=== PATIENT | female | born 1985 | race Two or more races ===

== ENCOUNTER 2022-10-22 09:50 | Outpatient (OUT) | payer BC, SELFPAY ==
[2022-10-22 10:36] LABS: Basophils Percent Auto 0.4 % (0.2-2.0); Eosinophils Absolute Auto 0.1 10^3/uL (0.0-0.7); Eosinophils Percent Auto 1.3 % (0.9-7.0); Hematocrit 42.9 % (36.0-48.0); Hemoglobin 14.5 g/dL (12.0-16.0); Lymphocytes Absolute Auto 2.1 10^3/uL (1.2-3.8); Lymphocytes Percent Auto 39.3 % (20.5-60.0); Mean Corpuscular HGB Conc 33.8 g/dL (29.9-35.2); Mean Corpuscular Hemoglobin 29.4 pg (26.7-34.0); Mean Corpuscular Volume 86.8 fL (81.0-99.0); Mean Platelet Volume 8.8 fL (9.5-13.5); Monocytes Absolute Auto 0.4 10^3/uL (0.3-0.8); Monocytes Percent Auto 7.1 % (1.7-12.0); Neutrophils Absolute Auto 2.7 10^3/uL (1.4-6.5); Neutrophils Percent Auto 51.9 % (43.0-75.0); Platelet Count 321 10^3/uL (150-450); Red Blood Count 4.94 10^6/uL (4.20-5.40); Red Cell Distribution Width 13.2 % (11.0-15.0); White Blood Count 5.2 10^3/uL (4.0-11.0)
[2022-10-22 12:14] LABS: Alanine Aminotransferase 22 U/L (14-59); Albumin Globulin Ratio 0.9; Albumin Level 3.8 g/dL (3.4-5.0); Alkaline Phosphatase 54 U/L (46-116); Anion Gap 11.2; Aspartate Amino Transferase 12 U/L (15-37); Bilirubin Total 0.3 mg/dL (0.2-1.0); Calcium 8.8 mg/dL (8.5-10.1); Chloride 106 mmol/L (98-107); Chol HDL Ratio 2.8; Cholesterol 161 mg/dL (<=200); Estimated GFR (African America >60 (>=60); Estimated GFR (Non-African Ame >60 (>=60); Globulin 4.2 g/dL; Glucose 83 mg/dL (74-106); HDL Cholesterol 58 mg/dL (40-60); Potassium 4.2 mmol/L (3.5-5.1); Sodium 141 mmol/L (136-145); Thyroid Stimulating Hormone 0.813 uIU/mL (0.358-3.740); Triglycerides 80 mg/dL (<=150)
[2022-10-22 12:53] LABS: Estimated Average Glucose 100 mg/dL; Glycohemoglobin A1C 5.1 % (4.5-6.2)
[2022-10-23 06:09] LABS: HCV Ab Non Reactive (Non Reactive)
[2022-10-23 08:11] LABS: HIV Ab/p24 Ag Screen Non Reactive (Non Reactive)
== END 2022-10-22 09:51 | disposition home or self-care (01) ==
LOC: LAB 09:54
PROVIDERS: PCP Nurse Practitioner Primary Care; Visit Provider Nurse Practitioner Primary Care
DX: Z00.00 Encounter for general adult medical examination without abnormal findings (principal); Z11.59 Encounter for screening for other viral diseases; Z13.6 Encounter for screening for cardiovascular disorders; Z11.4 Encounter for screening for human immunodeficiency virus [HIV]
CPT/HCPCS: 36415; 80053; 80061; 83036; 84443; 85025; 86803; 87389

== ENCOUNTER 2023-06-30 07:42 | Outpatient (OUT) | payer BC, OTHER, SELFPAY ==
--- NOTE | 2023-06-30 08:01 | P.CN_ITS ---
Consult Note: HPI Data of Consult Patient: known to practice within the last 3 years Requesting Physician: Jodie Krause NP Primary Care Provider: Dakotah Mehta NP Consult Narrative Reason for consult: f/u chronic low back pain Narrative: Gris Khalil a pleasant 38 year old female presents for evaluation and management of chronic low back pain. reports chronic low back pain since 2021, pain today 4/10 increasing to 8/10 with pushing pulling twisting heavy lifting and repetitive motions. Pain improved with lying and heat, previously found moderate to significant benefit to baclofen. Mild benefit from NSAIDs and PRN. No recent medications or PT. Describes it as an irritated tight cramp with intermittent numbness tingling of left leg and foot. Following with neurology for headaches/migraines who completed emg for LLE extremity symptoms, EMG negative for radiculopathy or polyneuropathy. Prior lumbar MRI and xray unremarkable. denies loss of bowel bladder or falls. Noticing improvement in left leg pain with change in job. cc:: CC: Jodie Krause NP Review of Systems 2 ROS0 Status of ROS 10 or more systems reviewed and unremark able except as noted in history and below Musculoskeletal Reports: back pain Exam Constitutional Documenting provider has reviewed patient's vital signs: yes Common normals: no apparent distress, oriented x3, healthy appearing, alert and well nourished General appearance: cooperative HENMT Common normals: normocephalic, hearing grossly normal bilaterally and moist oral mucous membranes Head and scalp: normocephalic Eye Common normals: PERRL Pupil: PERRL Neck & C-Spine Common normals: full ROM General: normal visual inspection Chest Common normals: inspection of chest normal Respiratory Common normals: normal respiratory effort, no retractions and no use of accessory muscles Back & Pelvis Lumbar spine/lower back: ROM limited, pain with ROM, paraspinal muscle tenderness, paraspinal muscle spasm and straight leg raise negative bilaterally Sacroiliac joints: SI joints normal Back image (female): 2 1. left flank tenderness/ myofascial knot Extremity Common normals: normal to inspection and full ROM Neuro Common normals: oriented x3, CN's II-XII intact bilaterally, moves all extremities, no focal motor deficits, no sensory deficits noted, deep tendon reflexes 2+ bilaterally and gait normal Sensorium/orientation: alert Motor exam: strength 5/5 throughout and no movement abnormalities noted Psych Common normals: mental status grossly normal, thought process normal, cooperative, affect normal, speech normal and activity/motor behavior normal Speech: normal speech Thought process: normal thought process Results Additional Findings Additional findings: If on a controlled substance or opioids, I have checked an [place] report on this patient and there are no aberrancies noted in the prescribing history.??If on a controlled substance or opioid a drug screen was completed and reviewed within the last year, and if there has not been a drug screen completed we ordered one today to monitor higher risk, state monitored pain medication use. As part of providing excellent, safe, comprehensive care, the following was completed at our patient's visit: 1. A medication reconciliation and review to ensure accurate knowledge of current/active medications, including asking our patients to inform us about any [id number] medications or herbal remedies/nutritional supplements/alternative remedies. 2. A review to specifically ensure our patients have had annual screening for screening for depression, screening for tobacco use, and screening for unhealthy alcohol use. For concerning screenings had a discussion with the patient, provided patient education, and recommended follow-up with primary care provider when appropriate. If patient noted with a risk of falling, they received education on strength, gait, and balance training to prevent future risk of falling. Assessment and Plan Assessment and Plan (1) Chronic left-sided low back pain: (2) Myofascial pain: Plan PT for dry needling and stretching restart baclofen, 5-10mg TID PRN myofascial and low back pain continue NSAIDs/acetaminophen PRN pain start TENS unit [employer] reviewed and signed, defer UDS can call for trigger point injections if needed f/u 6-8 weeks, after completion of PT unless needed sooner
== END 2023-06-30 07:43 | disposition home or self-care (01) ==
LOC: PM 07:44
PROVIDERS: PCP Nurse Practitioner Primary Care; Visit Provider Nurse Practitioner
DX: M54.50 Low back pain, unspecified (principal); M79.18 Myalgia, other site
CPT/HCPCS: G0463

== ENCOUNTER 2023-08-25 08:10 | Outpatient (OUT) | payer BC, OTHER, SELFPAY ==
--- NOTE | 2023-08-25 08:20 | P.CN_ITS ---
Consult Note: HPI Data of Consult Patient: known to practice within the last 3 years Requesting Physician: Jodie Krause NP Primary Care Provider: Dakotah Mehta NP Consult Narrative Reason for consult: f/u chronic low back pain Narrative: Gris Khalil a pleasant 38 year old female presents for evaluation and management of chronic low back pain. reports chronic low back pain since 2021, pain today 1/10 increasing to 4/10 with pushing pulling twisting heavy lifting and repetitive motions. Pain improved with lying and heat, previously found moderate to significant benefit to baclofen. Mild benefit from NSAIDs and PRN. Previously described it as an irritated tight cramp with intermittent numbness tingling of left leg and foot, now reports dull ache to left low back increased with long period of sitting or standing. Following with neurology for headaches/migraines who completed emg for LLE extremity symptoms, EMG negative for radiculopathy or polyneuropathy. Prior lumbar MRI and xray unremarkable. denies loss of bowel bladder or falls. Reporting moderate benefit from TENS. cc:: CC: Jodie Krause NP Review of Systems ROS Status of ROS 10 or more systems reviewed and unremark able except as noted in history and below Musculoskeletal Reports: back pain PFSH PFSH Medical History Acid reflux ?K21.9 - Gastro-esophageal reflux disease without esophagitis (ICD-10) History of kidney stones ?Z87.442 - Personal history of urinary calculi (ICD-10) Surgical History H/O ureteroscopy ?Z98.890 - Other specified postprocedural states (ICD-10) History of appendectomy ?Z90.49 - Acquired absence of other specified parts of digestive tract (ICD- 10) H/O rhinoplasty ?Z98.890 - Other specified postprocedural states (ICD-10) History of tonsillectomy and adenoidectomy ?Z90.89 - Acquired absence of other organs (ICD-10) Hx of LASIK ?Z98.890 - Other specified postprocedural states (ICD-10) History of laparoscopic cholecystectomy ?Z90.49 - Acquired absence of other specified parts of digestive tract (ICD- 10) Meds Home Medications and Allergies Home Medications ?Medication ?Instructions ?Recorded ?Confirmed ?Type baclofen 10 mg tablet 10 mg PO TID 06/30/23 06/30/23 History Allergies Allergy/AdvReac Type Severity Reaction Status Date / Time lamotrigine [From Lamictal] Allergy Unknown Rash Verified 06/30/23 08:38 Exam Constitutional Documenting provider has reviewed patient's vital signs: yes Common normals: no apparent distress, oriented x3, healthy appearing, alert and well nourished General appearance: cooperative HENMT Common normals: normocephalic, hearing grossly normal bilaterally and moist oral mucous membranes Head and scalp: normocephalic Eye Common normals: PERRL Pupil: PERRL Neck & C-Spine Common normals: full ROM General: normal visual inspection Chest Common normals: inspection of chest normal Respiratory Common normals: normal respiratory effort, no retractions and no use of accessory muscles Back & Pelvis Lumbar spine/lower back: lumbar ROM normal, paraspinal muscle tenderness, paraspinal muscle spasm and straight leg raise negative bilaterally Sacroiliac joints: SI joints normal Extremity Common normals: normal to inspection and full ROM Neuro Common normals: oriented x3, CN's II-XII intact bilaterally, moves all extremities, no focal motor deficits, no sensory deficits noted and deep tendon reflexes 2+ bilaterally Sensorium/orientation: alert Motor exam: strength 5/5 throughout and no movement abnormalities noted Psych Common normals: mental status grossly normal, thought process normal, cooperative, affect normal, speech normal and activity/motor behavior normal Speech: normal speech Thought process: normal thought process Results Additional Findings Additional findings: If on a controlled substance or opioids, I have checked an [place] report on this patient and there are no aberrancies noted in the prescribing history.??If on a controlled substance or opioid a drug screen was completed and reviewed within the last year, and if there has not been a drug screen completed we ordered one today to monitor higher risk, state monitored pain medication use. As part of providing excellent, safe, comprehensive care, the following was completed at our patient's visit: 1. A medication reconciliation and review to ensure accurate knowledge of current/active medications, including asking our patients to inform us about any [id number] medications or herbal remedies/nutritional supplements/alternative remedies. 2. A review to specifically ensure our patients have had annual screening for sc reening for depression, screening for tobacco use, and screening for unhealthy alcohol use. For concerning screenings had a discussion with the patient, provided patient education, and recommended follow-up with primary care provider when appropriate. If patient noted with a risk of falling, they received education on strength, gait, and balance training to prevent future risk of falling. Assessment and Plan Assessment and Plan (1) Chronic left-sided low back pain: (2) Myofascial pain: Plan continue baclofen, 5-10mg BID PRN myofascial and low back pain continue NSAIDs/acetaminophen PRN pain continue TENS f/u 6 months, sooner if needed
== END 2023-08-25 08:11 | disposition home or self-care (01) ==
LOC: PM 08:10
PROVIDERS: PCP Nurse Practitioner Primary Care; Visit Provider Nurse Practitioner
DX: M54.50 Low back pain, unspecified (principal); G89.29 Other chronic pain; M79.18 Myalgia, other site
CPT/HCPCS: G0463

== ENCOUNTER 2023-11-19 20:39 | Emergency (ER) | payer BC, OTHER, SELFPAY ==
[2023-11-19 20:42] VITALS: BP 148/103; PULSE 89; TEMP 37.2; O2SAT 98; BMI 27.8
--- OUTSIDE RECORDS SUMMARY | 2023-11-19 20:46 | XMS_ITS | CCD ---
Author Organization [facility] CliniSymo Care Team Providers Care Orthotist Name Role Phone Alfredo Mckeon Unavailable [phone] HOUSE, DR PERES Admitting Unavailable HOUSE, DR PERES Attending Unavailable ESSEX, DR PERES Primary Care Unavailable [employer], DR VERITO Lim Consulting Unavailable ESSEX, DR PERES Consulting Unavailable LAKSHMIPATHY ., NARENDRANATH Admitting Yue vailable LAKSHMIPATHY ., NARENDRANATH Attending Yue vailable ESSEX, DR PERES Primary Care Unavailable PAYALHOLDEN, DR CARLI Funes Consulting Unavailable LAKSHMIPATHY ., DIMA Consulting Yue vailable HOUSE, DR PERES Admitting Unavailable HOUSE, DR PERES Attending Unavailable HOUSE, DR PERES Primary Care Unavailable HOUSE, DR PERES Consulting Unavailable HIGHLANDER, KELLY Yi Admitting Unavailable HIGHLANDER, KELLY Yi Attending Unavailable HOUSE, DR PERES Primary Care Unavailable [employer], DR VERITO Lim Consulting Unavailable HIGHLANDER, KELLY Yi Consulting Unavailable HIGHLANDER, KELLY Yi Admitting Unavailable HIGHLANDER, KELLY Yi Attending Unavailable HOUSE, DR PERES Primary Care Unavailable HIGHLANDER, KELLY Yi Consulting Unavailable READERTORITO Consulting Unavailable LAKSHMIPATHY ., NARENDRANATH Admitting Yue vailable LAKSHMIPATHY ., CAROLINAENDRANATH Attending Yue vailable ADALBERTO, KELLY Yi Referring Unavailable HOUSE, DR PERES Primary Care Unavailable LAKSHMIPATHY ., NARENDRANATH Consulting Yue vailable LAKSHMIPATHY ., NARENDRANATH Admitting Yue vailable LAKSHMIPATHY ., GUSTAVOATH Attending Yue vailable ROCCO, DR PERES Primary Care Unavailable LAKSHMIPATHY ., NARENDRANATH Consulting Yue vailable LAKSHMIPATHY ., NARENDRANATH Admitting Yue vailable LAKSHMIPATHY ., DIMA Attending Yue vailable ROCCO, DR PERES Primary Care Unavailable PAYALHOLDEN, DR CARLI Funes Consulting Unavailable LAKSHMIPATHY ., NARENDRANATH Consulting Yue vailable ROSELYN, CHRISTOPHER Attending Unavailable CASSIA DEMPSEY Attending Unavailable CASSIA DEMPSEY Attending Unavailable PAOLO PRINCE Attending Unavailable Allergies Allergy Classification Reported Allergen(s) Allergy Type Date of Onset Reaction(s) Facility (1 source) [facility] Allergy rash [facility] Other (1 source) [facility] Drug Allergy 07-12-2019 [facility] Medications Current Medications Medication Drug Class(es) Dates Sig (Normalized) Sig (Original) [id number] 200 actuat albuterol 0.09 mg/actuat metered dose inhaler (1 source) beta2-Adrenergic Agonist Start: 05-07-2020 take 2 puff(s) by inhalation every four hours as needed Albuterol Sulfate HFA 108 (90 Base) MCG/ACT 2 puffs as needed Inhalation every 4 hrs PRN Apr, Active colestipol hydrochloride 1000 mg oral tablet (1 source) Bile Acid Sequestrant Start: 12-10-2020 take 2 tablets by mouth every twenty-four hours Colestipol HCl 1 GM 2 tablets Orally Once a day for 30 day(s) Nov, Active lithium carbonate 300 mg extended release oral tablet (1 source) [place] Carbonate ER 300 MG Orally Twice a day Active Problems Active Problems Problem Classification Problem Date Documented Date Episodic/Chronic Abdominal pain (6 sources) Abdominal pain; Translations: [Unspecified abdominal pain] Onset: 12-10-2020 Resolved: 12-10-2020 Episodic Anxiety disorders (2 sources) Generalized anxiety disorder; Translations: [Generalized anxiety disorder] Onset: 03-10-2023 Chronic Asthma (1 source) Exacerbation of intermittent asthma; Translations: [Mild intermittent asthma with (acute) exacerbation] Chronic Esophageal disorders (1 source) Gastroesophageal reflux disease; Translations: [Gastro-esophageal reflux disease without esophagitis] Chronic Other connective tissue disease (4 sources) Plantar fascial fibromatosis; Translations: [PLANTAR FASCIAL FIBROMATOSIS] Onset: 03-09-2022 Episodic Other connective tissue disease (4 sources) Pain in right foot; Translations: [PAIN IN RIGHT FOOT] Onset: 03-04-2022 Episodic Other connective tissue disease (1 source) Pain in left foot; Translations: [PAIN IN LEFT FOOT] Onset: 03-09-2022 Episodic Spondylosis; intervertebral disc disorders; other back problems (1 source) Spondylosis without myelopathy or radiculopathy, lumbar region; Translations: [SPONDYLS W/O MYELO-/RADICULOP LUMB] Onset: 05-10-2022 Chronic Spondylosis; intervertebral disc disorders; other back problems (4 sources) Radiculopathy, lumbar region; Translations: [RADICULOPATHY LUMBAR REGION] Onset: 04-22-2022 Episodic Unclassified (4 sources) LOW BACK PAIN, UNSPECIFIED; Translations: [LOW BACK PAIN, UNSPECIFIED] Onset: 04-15-2022 Unclassified (2 sources) CONTACT W/AND (SUSP) EXPOS COVID-19; Translations: [CONTACT W/AND (SUSP) EXPOS COVID-19] Onset: 10-26-2021 Viral infection (1 source) COVID-19; Translations: [COVID-19] Onset: 10-26-2021 Past or Other Problems Problem Classification Problem Date Documented Da te Episodic/Chronic Abdominal hernia (2 sources) Hiatal hernia; Translations: [Diaphragmatic hernia without obstruction or gangrene] Onset: 12-10-2020 Resolved: 12-10-2020 Episodic Nausea and vomiting (2 sources) Nausea and vomiting; Translations: [Nausea with vomiting, unspecified] Onset: 12-10-2020 Resolved: 12-10-2020 Episodic Other gastrointestinal disorders (1 source) Diarrhea; Translations: [Diarrhea, unspecified] Episodic Other gastrointestinal disorders (1 source) Diarrhea, unspecified; Translations: [Diarrhea R19.7] Onset: 12-10-2020 Resolved: 12-10-2020 Episodic Unclassified (1 source) LOW BACK PAIN, UNSPECIFIED; Translations: [LOW BACK PAIN, UNSPECIFIED] Onset: 05-07-2022 Unclassified (1 source) CONTACT W/AND (SUSP) EXPOS COVID-19; Translations: [CONTACT W/AND (SUSP) EXPOS COVID-19] Onset: 10-24-2021 Results Test Name Value Interpretation Reference Range Facility MRI LSPINE WO CONon 04-23-19 MRI LSPINE WO CON EXAMINATION: MRI LSPINE WO CON HISTORY: Low back pain ; chronic lumbar pain radiating into right buttock and leg COMPARISON: No relevant comparison available. TECHNIQUE: A variety of imaging planes and parameters were utilized for visualization of suspected pathology. FINDINGS: For the purposes of numbering, sagittal T2 image # 10 extends from the T11 vertebral body superiorly to the S4 level inferiorly. PARASPINAL AREA: Normal with no visible mass. BONES: Partial lumbarization of S1; normal variant. CORD/CAUDA EQUINA: Normal caliber, contour, and signal intensity. DISC LEVELS: 12-L1: No significant disc/facet abnormality, spinal stenosis, or foraminal stenosis. L1-L2: No significant disc/facet abnormality, spinal stenosis, or foraminal stenosis. L2-L3: No significant disc/facet abnormality, spinal stenosis, or foraminal stenosis. L3-L4: No significant disc/facet abnormality, spinal stenosis, or foraminal stenosis. L4-L5: No significant disc/facet abnormality, spinal stenosis, or foraminal stenosis. L5-S1: No significant disc/facet abnormality, spinal stenosis, or foraminal stenosis. IMPRESSION: 1. No significant degenerative changes, acute findings, or suspicious abnormality to account for patient's symptoms. Electronically authenticated by: CARLI RODRIGUEZ Date: 2022-04-22 16:27 Normal [facility] CT ABD/PELVIS WO CONon 04-20 CT ABD/PELVIS WO CON EXAMINATION: CT ABD/PELVIS WO CON, 04/20/2022 8:38 AM EST HISTORY: Left flank pain COMPARISON: 07/12/2019 TECHNIQUE: CT scan of the abdomen and pelvis was performed without IV contrast. CT dose reduction technique was used, including Automated Exposure Control. FINDINGS: LUNG BASES: No visible pulmonary or pleural disease. LIVER: No enlargement, atrophy, abnormal density, or significant focal lesion. BILIARY: Surgical clips from cholecystectomy PANCREAS: No lesion, fluid collection, ductal dilatation, or atrophy. SPLEEN: No enlargement or focal lesion. ADRENALS: No mass or enlargement. KIDNEYS: No mass, obstruction, or calcification. BOWEL/MESENTERY: Mild colonic diverticulosis. Nonobstructive bowel gas pattern. Surgical clips likely from prior appendectomy AORTA/VASCULAR: No aneurysm or dissection. RETROPERITONEUM: No mass or adenopathy. LYMPH NODES: No adenopathy. URINARY BLADDER: No visible focal wall thickening, lesion, or calculus. PELVIC ORGANS: No visible mass. Pelvic organs appropriate for patient age. ABDOMINAL WALL: No mass or hernia. BONES: No bony lesion or fracture. OTHER: Negative. IMPRESSION: No obstructive uropathy Electronically authenticated by: VERITO ESPOSITO Date: 2022-04-20 09:15 Normal [facility] XR LSPINE MIN 4 VIEWSon 03-19 XR LSPINE MIN 4 VIEWS EXAMINATION: XR LSPINE MIN 4 VIEWS HISTORY: Neuritis AND/OR radiculitis due to displacement of lumbar intervertebral disc ; chronic lumbar and right foot pain COMPARISON: No relevant comparison available. FINDINGS: BONES: No significant spondylosis, scoliosis, fracture, or visible bony lesion. DISC SPACES: No significant disc height narrowing, subluxation, or endplate abnormality. PARASPINOUS: Negative. No paraspinous abnormality is seen. OTHER: Negative. IMPRESSION: 1. No acute bone abnormality or significant degenerative changes. 2. Skin surface marker is posterior to the L3 spinous process. Electronically authenticated by: CARLI RODRIGUEZ Date: 2022-04-09 18:35 Normal [facility] MRI ANKLE RT WO CONon 2022 MRI ANKLE RT WO CON HISTORY: Chronic right foot pain. Possible plantar fasciitis. MRI ANKLE RT WO CON: 03/09/2022, 6:44 AM EST COMPARISON: Radiographs of the right foot 03/04/2022. TECHNIQUE: Multiplanar, multisequence MRI images of the right midfoot/hindfoot were obtained without contrast. FINDINGS: LIGAMENTS: The anterior talofibular ligament appears within normal limits. The calcaneofibular ligament, posterior talofibular ligament, and distal tibiofibular ligaments appear within normal limits. The deltoid ligament complex appears within normal limits. The spring ligament and Lisfranc ligament complex appear grossly intact. TENDONS: No significant tendinopathy, tendon tear, or tenosynovitis is seen. SINUS TARSI AND TARSAL TUNNEL: No space-occupying mass is seen in the tarsal tunnel or the sinus tarsi. BONES AND JOINTS: The bone marrow signal intensity is age appropriate. No unstable osteochondral defect of the tibiotalar joint is identified. PLANTAR FASCIA: There is no abnormal thickening or abnormal signal intensity of the plantar fascia and there is no surrounding soft tissue edema to suggest plantar fasciitis. SOFT TISSUES: No significant soft tissue swelling is seen. IMPRESSION: Normal MRI appearance of the right midfoot/hindfoot without MRI evidence of plantar fasciitis. Electronically authenticated by: TORITO JOSHI Date: 2022-03-09 17:09 Normal [facility] XR FOOT ROXANA MIN 3 VIEWSon XR FOOT ROXANA MIN 3 VIEWS EXAMINATION: XR FOOT ROXANA MIN 3 VIEWS HISTORY: Pain in both feet COMPARISON: No relevant comparison available. FINDINGS: RIGHT FINDINGS: BONES: Normal. No significant arthropathy or acute abnormality. SOFT TISSUES: Negative. No visible soft tissue swelling. OTHER: Negative. LEFT FINDINGS: BONES: Normal. No significant arthropathy or acute abnormality. SOFT TISSUES: Negative. No visible soft tissue swelling. OTHER: Negative. IMPRESSION: RIGHT CONCLUSION: Normal LEFT CONCLUSION: Normal Electronically authenticated by: VERITO ESPOSITO Date: 2022-03-04 16:29 Normal [facility] Covid-19 PCR (CVDTB)on SARS-CoV-2 (COVID-19) RNA CHICO+probe Ql (Unsp spec) Detected Critically abnormal NOT DETECTED [facility] Comment on above: Result Comment: This test is not yet julian roved or cleared by the [place] FDA. When there are no FDA-approved or cleared tests available, and other criteria are met, FDA can make tests available under an emergency access mechanism called an Emergency Use Authorization (EUA). The EUA for this test is supported by the Motorboat Operator of Health and Human Service's (HHS's) declaration that circumstances exist to justify the emergency use of in vitro diagnostics for the detection and/or diagnosis of the virus that causes COVID-19. This EUA will remain in effect (meaning this test can be used) for the duration of the COVID-19 declaration justifying emergency of IVDs, unless it is terminated or revoked by FDA (after which the test may no longer be used). Performed By: #### C VDTBH #### [facility] [address] [address] [address] Rozina De La Cruz HCG,Urineon 10-29-2020 Beta HCG ( test) Ql (U) Negative Normal [facility] Comment on above: Result Comment: PERFORMED BY: [address] [address] PATHOLOGIST CASTING CHIPPER GEMMA AVALOS M.D. Performed By: #### U HCG #### [address] [place] [address] [facility] 10-29-2020 L - -------- Specimen: [id number] Received: 10/29/20 Status: DIEGO Garsia Num: [id number] Spec Type: Surgical Subm Dr: Alfredo Mckeon MD Tissues: A Duodenum - Biopsy (DUODENAL BX) B Colon Biopsy (SURVEILLANCE BX) Procedures: HE Stain/4, Gross/Micro L4/2 -------- Patient Age/Sex Location Account Attending Physician -------- Chance Khalil 35/F [id number] Alfredo Mckeon MD -------- SPEC NUM: [id number] RECD: 10/29/20 STATUS: DIEGO GALDAMEZ NUM: [id number] LUCIO: 10/29/20 DR: Alfredo Mckeon MD ENTERED: 10/29/[address] [facility] [address]: SPEC TYPE: Surgical DEPT: S ORDERED: HE Stain/4, Gross/Micro L4/2 ORDERED: HE Stain/4, Gross/Micro L4/2 Pathological Diagnosis A. Small bowel, duodenum, biopsy: Small bowel mucosa with no significant histopathology. No evidence of celiac disease identified. B.Colon, biopsy: Benign colonic mucosa with no significant histopathology. No evidence of chronic, active or microscopic colitis identified Clinical Information Diarrhea Gross Description A. Received in formalin labeled with the patient's name, number and duodenum rule out sprue are two gomez-pink tissue fragments, 0.4 cm and 0.5 cm. Entire specimen is submitted in one cassette labeled A1. (Rabia) B. Received in formalin labeled with the patient's name, number and surveillance colon biopsies are multiple gomez-pink tissue fragments aggregating 0.9 x 0.7 x 0.2 cm. Entire specimen is submitted in one cassette labeled B1. (Rabia) -------- Specimen: [id number] Received: 10/29/20 Status: DIEGO Garsia Num: [id number] Spec Type: Surgical Subm Dr: Alfredo Mckeon MD Tissues: A Duodenum - Biopsy (DUODENAL BX) B Colon Biopsy (SURVEILLANCE BX) Procedures: HE Stain/4, Gross/Micro L4/2 -------- Patient: Malcolm Khalilruth ann Pickering [id number] (Continued) -------- Specimen: [id number] Received: 10/29/20 (Continued) Signed (signature on file) Luke Andres MD 10/30/20 1448 -------- Specimen: [id number] Received: 10/29/20 Status: DIEGO Sun Num: [id number] Spec Type: Surgical Subm Dr: Alfredo Mckeon MD Tissues: A Duodenum - Biopsy (DUODENAL BX) B Colon Biopsy (SURVEILLANCE BX) Procedures: HE Stain/4, Gross/Micro L4/2 -------- Patient: RemiChance [id number] (Continued) -------- Specimen: [id number] Received: 10/29/20 (Continued) Microscopic Description A. Two H E stained slides reviewed. Microscopic examination is performed. B. Two H E stained slides reviewed. Microscopic examination is performed. CPT Codes 81507 x 2 -------- -------- Specimen: [id number] Received: 10/29/20 Status: DIEGO Sun Num: [id number] Spec Type: Surgical Subm Dr: Alfredo Mckeon MD Tissues: A Duodenum - Biopsy (DUODENAL BX) B Colon Biopsy (SURVEILLANCE BX) Procedures: HE Stain/4, Gross/Micro L4/2 -------- Patient: Chance Khalil [id number] (Continued) -------- Signed (signature on file) Luke Andres MD 10/30/20 1448 Normal [facility] SARS-CoV-2 (COVID-19) RNA CHICO+probe Ql (Unsp spec) Negative Normal Negative [facility] Comment on above: Order Comment: Healthcare Worker?: N Result Comment: Testing for SARS-CoV-2 by RT-PCR This test was developed and its performance characteristics determined by [facility] (ID90T) and validated at the [facility]. This test has not been FDA cleared or approved. This test has been authorized by FDA under an Emergency Use Authorization (EUA). This test has been validated in accordance with the FDA's Guidance Document (Policy for Diagnostics Testing in Laboratories Certified to Perform High Complexity Testing under CLIA prior to Emergency Use Authorization for Coronavirus Disease-2019 during the Public Health Emergency) issued on May 18, 2019. This test is only authorized for the duration of time the declaration that circumstances exist justifying the authorization of the emergency use of in vitro diagnostic tests for detection of SARS-CoV-2 virus and/or diagnosis of COVID-19 infection under section 564(b)(1) of the Act, 21 U.S.C. 360bbb-3(b)(1), unless the authorization is terminated or revoked sooner. PERFORMED BY: [place] [address] PATHOLOGIST CASTING CHIPPER GEMMA AVALOS M.D. Performed By: #### C OVID 19 [facility] #### [address] Provider Letteron 02-05-2020 Provider Letter February 05, 2020 CHANCE JACOBS [address] [facility] [address] [place] [address] CHANCE JACOBS 1985 Dear Chance, You missed your scheduled appointment on: 02/05/[address] Valente and the purpose of this letter is to inform you of our *No Show Policy*. Our appointment slots fill rapidly and when we have a no show appointment that time is lost. We could have used that time slot to care for a patient who needed to see one of our providers. Therefore, we ask that you call 24 hours in advance to cancel your appointment. After your second no show within a twelve (12) month period, you will be assessed a $30 charge that must be paid before your next appointment. After the fifth no show within that twelve (12) month period, you are subject to dismissal from the practice. This policy is in place so that we can meet the needs of all of our patients and we do appreciate your understanding. Sincerely, [facility] [address], [place] [address] Normal [facility] Coding Summary.on 08-16-2019 Coding Summary. CODING DATE: 08/16/2019 FINAL [facility] STATUS: Home (Routine DC) PAYOR: Medical [place] ADMIT DX: REASON FOR VISIT DX: Z01.812 Encounter for preprocedural laboratory examination FINAL DX: PRINCIPAL: Z01.812 Encounter for preprocedural laboratory examination SECONDARY: Z11.59 Encounter for screening for other viral diseases PYMT PROC APC STAT DESCRIPTION DOCTOR NAME DATE NOTE: The code number assigned matches the documented diagnosis and / or procedure in the patient's chart. However, the narrative phrase printed from the coding software may appear abbreviated, or result in slightly different terminology. Coded By: Nicole Armenta CphT Date Saved: 08/16/2019 03:46 pm Normal [facility] Lab Reportson 08-16-2019 Lab Reports [id number]#1. 00CD:127 Normal [facility] Operative Reporton 0 Operative Report [id number] .00CD:127 [facility] Operative Reporton 0 Operative Report [id number] .00CD:127 [facility] Lab Reportson 07-31-2019 Lab Reports [id number]#1. 00CD:127 [facility] RAD - MISCon 07-31-2019 RAD - MISC [id number]#1. 00CD:127 [facility] Ambulatory Clinical Summaryo 07-28-2019 Ambulatory Clinical Summary {[id number]}CD:[id number] [facility] Physician Orderon 07-28-2019 Physician Order [id number]#1. 00CD:127 [facility] Ambulatory Clinical Summaryo 07-14-2019 Ambulatory Clinical Summary {[id number]}CD:[id number] [facility] ED Note-Physicianon 07-14-19 20 ED Note-Physician [id number] .00CD:127 [facility] RAD - MISCon 07-14-2019 RAD - MISC [id number]. 00CD:127 [facility] Vital Signs Date Time Vital Sign Value Performing Clinician Faci lity 12-10-2020 15:45-0400 Body height 160.02 cm Alfredo Mckeon Other [facility] Other 12-10-2020 15:45-0400 Body mass index (BMI) [Ratio] 26.21 kg/m2 Alfredo Mckeon Other [facility] Other 12-10-2020 15:45-0400 Body weight 67.13 kg Alfredo Mckeon Other [facility] Other Encounters Encounter Date Encounter Type Care Provider Facility Start: 07-14-2023 End: 07-14-2023 ambulatory PAOLO PRINCE Not Available Start: 06-17-2023 End: 06-17-2023 ambulatory CASSIA DEMPSEY Not Available Start: 06-16-2023 End: 06-16-2023 ambulatory CASSIA DEMPSEY Not Available Start: 06-07-2023 End: 06-07-2023 ambulatory CASSIA MUÑOZETT Not Available Start: 03-10-2023 End: 03-10-2023 ambulatory Mor Start: 05-07-2022 End: 05-08-2022 ambulatory NARENDRANATH LAKSHMIPATHY . Facility:[facility] Start: 04-22-2022 End: 04-23-2022 ambulatory CAROLINAENDRANATH LACHELLESHMIPATHY . Facility:[facility] Start: 04-20-2022 End: 04-21-[address] LARISA VALIENTE Facility:[facility] Start: 04-09-2022 End: 04-10-2022 ambulatory NARENDRANATH LAKSHMIPATHY . Facility:[facility] Start: 04-09-2022 End: 04-10-2022 ambulatory NARENDRANATH LAKSHMIPATHY . Facility:[facility] Start: 03-09-2022 End: 03-10-2022 ambulatory KELLY GLOVER Facility:[facility] Start: 03-04-2022 End: 2022 ambulatory KELLY GLOVER Facility:[facility] Start: 10-24-2021 End: 10-24-[address] LARISA VALIENTE Facility:[facility] Start: 12-10-2020 Office outpatient visit 15 minutes Alfredo Mckeon [facility] Gastroenterology Immunizations Immunization Date Immunization Notes Care Provider Fa cilibecky 05-25-2016 Toradol per 15 mg Alfredo Diez Other [facility] Other Payers Date Payer Category Payer Unknown [id number] 1985 Unknown [id number] 2.16.84 [id number] 1985 Unknown [id number] 2.16.84 [id number] 1985 Unknown [id number] 2.16.84 0.1.016403.3.579.2.593 1985 Unknown [id number] 2.16.84 0.1.594860.3.579.2.593 1985 Unknown [id number] 2.16.84 0.1.031998.3.579.2.593 1985 Unknown [id number] 2.16.84 0.1.169826.3.579.2.593 1985 Unknown [id number] 2.16.84 0.1.659264.3.579.2.593 1985 Unknown [id number] 2.16.84 0.1.427678.3.579.2.593 1985 Unknown [id number] 2.16.84 0.1.130892.3.579.2.1259 1985 Unknown [id number] 2.16.84 0.1.738780.3.579.2.1259 1985 Unknown [id number] 2.16.84 0.1.703572.3.579.2.1259 1985 Unknown [id number] 2.16.84 0.1.762964.3.579.2.1259 1958 [facility] [id number] Social History Date Type Detail Facility Unknown if ever smoked [facility] Other Sex Assigned At Sex Assigned At Bir th [facility] Other Consultation note 05-07-2022 Note Date & Type Note Facility 05-07-2022 Note CONSULTATION CONSULTATION DATE: 05/07/2022 TO: Dr. Valiente CHIEF COMPLAINT: Severe bilateral lower back pain, worse on the right than the left side. HISTORY: Rates it being 5-7/10 pain, sharp in character, increasing with activities such as standing, walking and performing transitioning maneuvers. The patient feels most comfortable in a semi-recumbent position. She denies any change in bowel and bladder habits or new sensorimotor changes in the lower extremities. EXAMINATION: Notable for the patient having no clinical radiculopathy or myelopathy involving lower extremities on today's visit. Patient did have severe pain with lumbar facet joint loading maneuvers on today's visit. It appears to be occurring bilaterally, most severe at L3-4, L4-5; worse on the right than the left side. IMAGING: We did review her lumbosacral MRI which did not reveal any significant neural compromise. At this point, I did not recommend any surgical intervention for recurrent pain symptoms. We did review her lumbar spine films. We placed a skin marker over the most painful area. It appeared to be most painful at the L3 level and we will focus our attention at the L3-4 and L4-5 level, since she is having more symptomatology below the L3 level as opposed to above the L3 level. RECOMMENDATIONS: I have increased the baclofen to 10 mg pills, half a pill to one pill t.i.d. She currently takes it only on an as needed basis. We will proceed with a diagnostic bilateral L3-4, L4-5 facet joint injection under fluoroscopic guidance for her pain from her lumbar spondylosis. I have gone over the details of the procedure with the patient. All her questions were answered. She agrees to proceed with the outlined plan. Her Oswestry scale was 10. [facility] Consultation note 04-09-2022 Note Date & Type Note Facility 04-09-2022 Note PAIN MANAGEMENT CONS ULTATION CONSULTATION DATE: 04/08/2022 CHIEF COMPLAINT: Right lower back pain. HISTORY OF PRESENT ILLNESS: The recent past medical/surgical history . She is a 37-year-old female, reports having pain since January of 2022, including spontaneous . She reports having 5-7/10 pain in the lower back, which was sharp in nature, increased with activity such as sitting, walking, and transitioning maneuvers. bowel and bladder habits. lower extremities. EXAM: no clinical radiculopathy or myelopathy involving the lower extremities. She may have had some mild dysesthesia along the distribution of the right L5 dermatome. She had severe pain with lumbar on the right at approximately L4-5, but may have included either L5-S1 and possibly L3-4, with of myofascial spasm of the lumbar paraspinal muscles on the right side. SI joint dysfunction on today's visit. Her EMG did reveal a possible right L5 neurogenic process. RECOMMENDATIONS: Since she has failed conservative therapy with medication management, use of non-steroidal agents in the form of Mobic, activity modification, I have recommended we proceed with a lumbosacral MRI without contrast, lumbar spine films with placement of skin marker over the most painful area, where she experienced the most pain when performing lumbar on the right that has appeared to be at L4-5. I have recommended she start physical therapy and placed her on baclofen 10 mg pill, half a pill to one pill b.i.d. as tolerated. We will see her back in the office after she undergoes her imaging studies. [facility] Evaluation note 12-10-2020 Note Date & Type Note Facility 12-10-2020 Evaluation note Encounter Date Diagnosis Assessment Notes Nov, Abdominal pain (ICD-10 - R10.9) Nov, Nausea and vomiting (ICD-10 - R11.2) Nov, Diarrhea (ICD-10 - R19.7) PT GIVEN COPY OF LOW FODMAP DIET RTO 6 WEEKS Nov, Hiatal hernia (ICD-10 - K44.9) [employer] Other History general Narrative - Reported Note Date & Type Note Facility History general Narrative - Reported Type Medical History anxiety Medical History asthma Surgical History cholecystectomy 2007 Surgical History oral surgery Surgical History appendectomy 2005 Surgical History KIDNEY SCRAPPED OUT Hospitalization History see above health history [employer] Other Summary Purpose Family History No Family History Records FoundNo Family History Records FoundNo Family History Records FoundNo Family History Records FoundNo Family History Records Found Advance Directives No Advanced Directives Records FoundNo Advanced Directives Records FoundNo Advanced Directives Records FoundNo Advanced Directives Records FoundNo Advanced Directives Records Found Additional Source Comments INFORMATION SOURCE (unrecogn ized section and content) DATE CREATED AUTHOR 02/05/2020 Srini GdeSlon [facility] DATE CREATED AUTHOR AUTHOR'S ORGANIZ ATION 03/10/2021 [facility] DATE CREATED AUTHOR AUTHOR'S ORGANIZ ATION 05/10/2022 [facility] DATE CREATED AUTHOR AUTHOR'S ORGANIZ ATION 03/12/2023 [facility] DATE CREATED AUTHOR AUTHOR'S ORGANIZ ATION 07/15/2023 [facility] d[facility] Specialists EPIC REASON FOR VISIT (unrecogniz ed section and content) colonoscopy follow up on 10-16 for Abdominal pain, nausea, vomiting and diarrhea. FOR RECORDS PERTAINING TO PATIENTS WHO ARE OR HAVE BEEN ENROLLED IN A CHEMICAL DEPENDENCY/SUBSTANCEABUSE PROGRAM, SOME INFORMATION MAY BE OMITTED. This clinical summary was aggregated from multiple sources. Caution should be exercised in using it in the provision of clinical care. This summary normalizes information from multiple sources, and as a consequence, information in this document may materially change the coding, format and clinical context of patient data. In addition, data may be omitted in some cases. CLINICAL DECISIONS SHOULD BE BASED ON THE PRIMARY CLINICAL RECORDS. [employer] provides no warranty or guarantee of the accuracy or completeness of information in this document.
--- NOTE | 2023-11-19 21:03 | ED_ITS ---
HPI - Dental/Oral General Chief complaint: Dental/Oral Stated complaint: Dental Pain Time Seen by Provider: 11/19/23 20:59 Source: patient Mode of arrival: walk-in History of Present Illness HPI Narrative: patient presents complaining of dental pain. describes placement of a filling by her dentist who then prescribed Amoxicillin. Patient has taken for 3 days and now has increased swelling and pain. No fever Related Data Home Medications ?Medication ?Instructions ?Recorded ?Confirmed amoxicillin 500 mg capsule 500 mg PO TID 11/19/23 11/19/23 buspirone 5 mg tablet 5 mg PO BID 11/19/23 11/19/23 escitalopram oxalate 5 mg tablet 5 mg PO QAM 11/19/23 11/19/23 hydroxyzine pamoate 25 mg capsule 25 mg PO BID PRN anxiety 11/19/23 11/19/23 ibuprofen 600 mg tablet 600 mg PO Q6H PRN pain 11/19/23 11/19/23 sertraline 50 mg tablet 50 mg PO DAILY 11/19/23 11/19/23 Allergies Allergy/AdvReac Type Severity Reaction Status Date / Time lamotrigine [From Lamictal] Allergy Unknown Rash Verified 06/30/23 08:38 Review of Systems 2 ROS0 Status of ROS 10 or more systems reviewed and unremark able except as noted in history and below PFSH PFSH Medical History Acid reflux ?K21.9 - Gastro-esophageal reflux disease without esophagitis (ICD-10) History of kidney stones ?Z87.442 - Personal history of urinary calculi (ICD-10) Surgical History H/O ureteroscopy ?Z98.890 - Other specified postprocedural states (ICD-10) History of appendectomy ?Z90.49 - Acquired absence of other specified parts of digestive tract (ICD- 10) H/O rhinoplasty ?Z98.890 - Other specified postprocedural states (ICD-10) History of tonsillectomy and adenoidectomy ?Z90.89 - Acquired absence of other organs (ICD-10) Hx of LASIK ?Z98.890 - Other specified postprocedural states (ICD-10) History of laparoscopic cholecystectomy ?Z90.49 - Acquired absence of other specified parts of digestive tract (ICD- 10) Social History Little interest or pleasure in doing things: not at all Feeling down, depressed, or hopeless: not at all Exam Constitutional Vital Signs, click to edit/add: Last Vital Signs Temp 98.9 F 11/19/23 20:42 Pulse 89 11/19/23 20:42 Resp 18 11/19/23 20:42 BP 148/103 H 11/19/23 20:42 Pulse Ox 98 11/19/23 20:42 O2 Del Method Room Air 11/19/23 20:42 Common normals: no apparent distress, average body habitus, oriented x3, no limitations, healthy appearing, alert and well nourished HENMT Common normals: normocephalic and head/scalp atraumatic Head images: 2 1. mild facial swelling Other: right upper premolar tender Eye Common normals: EOMs intact bilaterally and conjunctivae normal Respiratory Common normals: normal respiratory effort, no retractions, no use of accessory muscles and clear to auscultation bilaterally Cardio Common normals: regular rate, regular rhythm, S1 normal heart sound and S2 normal heart sound Extremity Common normals: normal to inspection and full ROM Neuro Common normals: oriented x3, moves all extremities and no focal motor deficits Psych Appearance: grossly normal Course Vital Signs Vital signs: Vital Signs Temperature 98.9 F 11/19/23 20:42 Pulse Rate 89 11/19/23 20:42 Respiratory Rate 18 11/19/23 20:42 Blood Pressure 148/103 H 11/19/23 20:42 Pulse Oximetry 98 11/19/23 20:42 Oxygen Delivery Method Room Air 11/19/23 20:42 Temperature 98.9 F 11/19/23 20:42 Pulse Rate 89 11/19/23 20:42 Respiratory Rate 18 11/19/23 20:42 Blood Pressure 148/103 H 11/19/23 20:42 Pulse Oximetry 98 11/19/23 20:42 Oxygen Delivery Method Room Air 11/19/23 20:42 MDM - Dental/Oral MDM Narrative Medical decision making narrative: patient presents with dental abscess. On amoxicillin and has increased pain and swelling. Oral pharynx is clear. Antibiotic changed to clindamycin. Given one time dose of prednisone for swelling and discharged home Discharge Plan Discharge Chief Complaint: Dental/Oral Clinical Impression: Dental abscess Patient Disposition: Home, Self-Care Prescriptions / Home Meds: No Action amoxicillin 500 mg capsule 500 mg PO TID buspirone 5 mg tablet 5 mg PO BID escitalopram oxalate 5 mg tablet 5 mg PO QAM hydroxyzine pamoate 25 mg capsule 25 mg PO BID PRN (Reason: anxiety) ibuprofen 600 mg tablet 600 mg PO Q6H PRN (Reason: pain) sertraline 50 mg tablet 50 mg PO DAILY Print Language: Argentine Instructions: Dental Abscess (ED) Additional Instructions: discontinue amoxicillin. Follow up with your doctor next week Referrals: Ilana Carmona DRILLER HAND [Primary Care Provider] - 1 week
[2023-11-19] MEDS: CLINDAMYCIN HCL 150 MG CAPSULE 450 MG PO (21:23)
[2023-11-19] MEDS: PREDNISONE 20 MG TABLET 40 MG PO (21:24)
== END 2023-11-19 21:39 | disposition home or self-care (01) ==
PROVIDERS: Emergency Provider Internal Medicine; PCP Nurse Practitioner
DX: K04.7 Periapical abscess without sinus (principal)
CPT/HCPCS: 99284; J7512

== ENCOUNTER 2024-03-23 10:47 | Outpatient (OUT) | payer OTHER, SELFPAY ==
--- NOTE | 2024-03-23 10:50 | US_ITS ---
[address] [address] Patient Name: CHANCE ABREU MRN: [id number] date: 1985 Sex: F Assigned Patient Location: Current Patient Location: Accession/Order Number: [id number] Exam Date: 03/23/2024 10:55 Report Date: 03/24/2024 10:04 At the request of: CHEKO HANNAH Procedure: US renal BI EXAMINATION: US renal BI HISTORY: Kidney Stone COMPARISON: No relevant comparison available. TECHNIQUE: Ultrasound examination was performed of the bladder. FINDINGS: Right Kidney: Normal in size, contour and cortical echotexture. The cortex measures 0.6 cm. 6 mm echogenic focus mid pole, nonobstructing nephrolith. No solid cortical mass or hydronephrosis Height: 4.38 cm Length: 9.02 cm Width: 4.32 cm Left Kidney: Normal in size, contour and cortical echotexture. The cortex measures 0.9 cm. Echogenic foci measuring up to 6 mm, nonobstructing nephrolithiasis. No solid cortical mass or hydronephrosis Height: 5.20 cm Length: 10.92 cm Width: 5.03 cm Urinary bladder is normal. Volume 49 mL. Ureteral jets: Not visualized US/US renal BI IMPRESSION: Bilateral nonobstructing nephrolithiasis Electronically authenticated by: VERITO ESPOSITO Date: 03/24/2024 10:04
--- OUTSIDE RECORDS SUMMARY | 2024-03-23 10:50 | XMS_ITS | CCD ---
Author Organization [facility] Care Team Providers Care Filter Tank Tender Helper Head Name Role Phone Alfredo Mckeon Unavailable [phone] HOUSE, DR PERES Admitting Unavailable HOUSE, DR PERES Attending Unavailable HAMBURG, DR PERES Primary Care Unavailable HILLSBORO, DR VERITO Lim Consulting Unavailable HOUSE, DR PERES Consulting Unavailable LAKSHMIPATHY ., NARENDRANATH Admitting Yue vailable LAKSHMIPATHY ., NARENDRANATH Attending Yue vailable HAMBURG, DR PERES Primary Care Unavailable PAYALHOLDEN, DR CARLI Funes Consulting Unavailable LAKSHMIPATHY ., DIMA Consulting Yue vailable HOUSE, DR PERES Admitting Unavailable HOUSE, DR PERES Attending Unavailable HOUSE, DR PERES Primary Care Unavailable HOUSE, DR PERES Consulting Unavailable HIGHLANDER, KELLY Yi Admitting Unavailable HIGHLANDER, KELLY Yi Attending Unavailable HOUSE, DR PERES Primary Care Unavailable [place]SB[place]O, DR VERITO Lim Consulting Unavailable HIGHLANDER, KELLY [...] Facility (1 source) [facility] Allergy rash [facility] Other (1 source) lamoTRIgine Drug Allergy 07-12-2019 [facility] Repository Medications Current Medications Medication Drug Class(es) Dates Sig (Normalized) Sig (Original) [id number] 200 actuat albuterol 0.09 mg/actuat metered dose [...] mg extended release oral tablet (1 source) Artemus Carbonate ER 300 MG Orally Twice a [...] by: CARLI RODRIGUEZ Date: 2022-04-22 16:[address] [facility] CT ABD/PELVIS WO CONon 04-20 CT [...] VERITO ESPOSITO Date: 2022-04-20 09:15 Normal [facility] XR LSPINE MIN 4 VIEWSon 03-19 XR [...] CARLI RODRIGUEZ Date: 2022-04-09 18:35 Normal [facility] MRI ANKLE RT WO CONon 2022 MRI [...] TORITO JOSHI Date: 2022-03-09 17:09 Normal [facility] XR FOOT ROXANA MIN 3 VIEWSon XR [...] VERITO ESPOSITO Date: 2022-03-04 16:29 Normal [facility] Covid-19 PCR (CVDTB)on SARS-CoV-2 (COVID-19) RNA CHICO+probe Ql (Unsp spec) Detected Critically abnormal NOT DETECTED [facility] Comment on above: Result Comment: This test is not yet julian roved or cleared by the [place] FDA. When there are no FDA-approved or cleared tests available, and other criteria are met, FDA can make tests available under an emergency access mechanism called an Emergency Use Authorization (EUA). The EUA for this test is supported by the Bar Hostess of Health and Human Service's (HHS's) declaration [...] used). Performed By: #### C VDTBH #### [facility] [address] [address] [address] Rozina De La Cruz HCG,Urineon 10-29-2020 Beta HCG ( test) Ql (U) Negative Normal [facility] Comment on above: Result Comment: PERFORMED BY: [address] [address] PATHOLOGIST CARD GRINDER HELPER GEMMA AVALOS M.D. Performed By: #### U HCG #### [address] [place] [address] [facility] 10-29-2020 L - -------- Specimen: [id number] Received: 10/29/20 Status: DIEGO Garsia Num: [id number] Spec Type: Surgical Subm Dr: Alfredo Mckeon MD Tissues: A Duodenum - Biopsy (DUODENAL BX) B Colon Biopsy (SURVEILLANCE BX) Procedures: HE Stain/4, Gross/Micro L4/2 -------- Patient Age/Sex Location Account Attending Physician -------- Chance Khalil 35/F [id number] Alfredo Mckeon MD -------- SPEC NUM: [id number] RECD: 10/29/20 STATUS: DIEGO GALDAMEZ NUM: [id number] LUCIO: 10/29/20 DR: Alfredo Mckeon MD ENTERED: 10/29/[address] [facility] [address]: SPEC TYPE: Surgical DEPT: S ORDERED: [...] one cassette labeled B1. (Rabia) -------- Specimen: [id number] Received: 10/29/20 Status: DIEGO Garsia Num: [id number] Spec Type: Surgical Subm Dr: Alfredo Mckeon MD Tissues: A Duodenum - Biopsy (DUODENAL BX) B Colon Biopsy (SURVEILLANCE BX) Procedures: HE Stain/4, Gross/Micro L4/2 -------- Patient: Malcolm Khalilruth ann Pickering [id number] (Continued) -------- Specimen: [id number] Received: 10/29/20 (Continued) Signed (signature on file) Luke Andres MD 10/30/20 1448 -------- Specimen: [id number] Received: 10/29/20 Status: DIEGO Sun Num: [id number] Spec Type: Surgical Subm Dr: Alfredo Mckeon MD Tissues: A Duodenum - Biopsy (DUODENAL BX) B Colon Biopsy (SURVEILLANCE BX) Procedures: HE Stain/4, Gross/Micro L4/2 -------- Patient: RemiChance [id number] (Continued) -------- Specimen: [id number] Received: 10/29/20 (Continued) Microscopic Description A. Two H E stained slides reviewed. Microscopic examination is performed. B. Two H E stained slides reviewed. Microscopic examination is performed. CPT Codes 34150 x 2 -------- -------- Specimen: [id number] Received: 10/29/20 Status: DIEGO Sun Num: [id number] Spec Type: Surgical Subm Dr: Alfredo Mckeon MD Tissues: A Duodenum - Biopsy (DUODENAL BX) B Colon Biopsy (SURVEILLANCE BX) Procedures: HE Stain/4, Gross/Micro L4/2 -------- Patient: Chance Khalil [id number] (Continued) -------- Signed (signature on file) Luke Andres MD 10/30/20 1448 Normal [facility] SARS-CoV-2 (COVID-19) RNA CHICO+probe Ql (Unsp spec) Negative Normal Negative [facility] Comment on above: Order Comment: Healthcare Worker?: N Result Comment: Testing for SARS-CoV-2 by RT-PCR This test was developed and its performance characteristics determined by [employer] and validated at the [facility]. This test has not been FDA [...] is terminated or revoked sooner. PERFORMED BY: [place] [address] PATHOLOGIST CARD GRINDER HELPER GEMMA AVALOS M.D. Performed By: #### C OVID 19 [facility] #### [address] Provider Letteron 02-05-2020 Provider Letter February 05, 2020 CHANCE JACOBS [address] [facility] [address] [place] [address] CHANCE JACOBS 1985 Dear Chance, You missed [...] [facility] [address], [place] [address] Normal [facility] Coding Summary.on 08-16-2019 Coding Summary. CODING DATE: 08/16/2019 FINAL [facility] STATUS: Home (Routine DC) PAYOR: [facility] [place] ADMIT DX: REASON FOR VISIT DX: [phone] [...] CphT Date Saved: 08/16/2019 03:46 pm Normal [facility] Lab Reportson 08-16-2019 Lab Reports [id number]#1. 00CD:127 Normal [facility] Operative Reporton 0 Operative Report [id number] .00CD:127 [facility] Operative Reporton 0 Operative Report [id number] .00CD:127 [facility] Lab Reportson 07-31-2019 Lab Reports [id number]#1. 00CD:127 [facility] RAD - MISCon 07-31-2019 RAD - MISC [id number]#1. 00CD:127 [facility] Ambulatory Clinical Summaryo 07-28-2019 Ambulatory Clinical Summary {[id number]}CD:[id number] [facility] Physician Orderon 07-28-2019 Physician Order [id number]#1. 00CD:127 [facility] Ambulatory Clinical Summaryo 07-14-2019 Ambulatory Clinical Summary {[id number]}CD:[id number] [facility] ED Note-Physicianon 07-14-19 20 ED Note-Physician [id number] .00CD:127 [facility] RAD - MISCon 07-14-2019 RAD - MISC [id number]. 00CD:127 [facility] Vital Signs Date Time Vital Sign Value Performing Clinician Faci lity 12-10-2020 15:45-0400 Body height 160.02 cm Alfredo Mckeon Other [facility] Other 12-10-2020 15:45-0400 Body mass index (BMI) [Ratio] 26.21 kg/m2 Alfredo Mckeon Other [facility] Other 12-10-2020 15:45-0400 Body weight 67.13 kg Alfredo Mckoen Other [facility] Other Encounters Encounter Date Encounter Type Care [...] Office outpatient visit 15 minutes Alfredo Mckeon [facility] Gastroenterology Immunizations Immunization Date Immunization Notes Care Provider Fa cilibecky 05-25-2016 Toradol per 15 mg Alfredo Diez Other [facility] Other Payers Date Payer Category Payer Unknown [id number] 1985 Unknown [id number] 2.16.84 [id number] 1985 Unknown [id number] 2.16.84 0.1.742763.3.579.2.593 1985 Unknown [id number] 2.16.84 0.1.701812.3.579.2.593 1985 Unknown [id number] 2.16.84 0.1.583708.3.579.2.593 1985 Unknown [id number] 2.16.84 0.1.529849.3.579.2.593 1985 Unknown [id number] 2.16.84 0.1.953648.3.579.2.593 1985 Unknown [id number] 2.16.84 0.1.544511.3.579.2.593 1985 Unknown [id number] 2.16.84 0.1.823414.3.579.2.593 1985 Unknown [id number] 2.16.84 0.1.215855.3.579.2.1259 1985 Unknown [id number] 2.16.84 0.1.935612.3.579.2.1259 1985 Unknown [id number] 2.16.84 0.1.126197.3.579.2.1259 1985 Unknown [id number] 2.16.84 0.1.996330.3.579.2.1259 1958 [id number] Social History Date Type Detail Facility Unknown if ever smoked [facility] Other Sex Assigned At Sex Assigned At Bir th [facility] Other Consultation note 05-07-2022 Note Date & [...] plan. Her Oswestry scale was 10. [facility] Consultation note 04-09-2022 Note Date & Type [...] after she undergoes her imaging studies. [facility] Evaluation note 12-10-2020 Note Date & Type Note Facility 12-10-2020 Evaluation note Encounter Date Diagnosis Assessment Notes Nov, Abdominal pain (ICD-10 - R10.9) Nov, Nausea and vomiting (ICD-10 - R11.2) Nov, Diarrhea (ICD-10 - R19.7) PT GIVEN COPY OF LOW FODMAP DIET RTO 6 WEEKS Nov, Hiatal hernia (ICD-10 - K44.9) [facility] Other History general Narrative - Reported Note Date & Type Note Facility History general Narrative - Reported Type Medical History anxiety Medical History asthma Surgical History cholecystectomy 2007 Surgical History oral surgery Surgical History appendectomy 2005 Surgical History KIDNEY SCRAPPED OUT Hospitalization History see above health history [facility] Other Summary Purpose Family History No Family [...] and content) DATE CREATED AUTHOR 02/05/2020 Srini [employer] [facility] DATE CREATED AUTHOR AUTHOR'S ORGANIZ ATION 03/10/2021 [facility] DATE CREATED AUTHOR AUTHOR'S ORGANIZ ATION 05/10/2022 [facility] DATE CREATED AUTHOR AUTHOR'S ORGANIZ ATION 03/12/2023 [place] DATE CREATED AUTHOR AUTHOR'S ORGANIZ ATION 07/15/2023 [facility] dical Specialists EPIC REASON FOR VISIT [...] BE BASED ON THE PRIMARY CLINICAL RECORDS. [employer] provides no warranty or guarantee of the accuracy or completeness of information in this document.
== END 2024-03-23 10:48 | disposition home or self-care (01) ==
LOC: US 10:47
PROVIDERS: PCP Nurse Practitioner
DX: N20.0 Calculus of kidney (principal)
CPT/HCPCS: 76775

== ENCOUNTER 2024-03-27 03:59 | Emergency (ER) | payer OTHER, SELFPAY ==
[2024-03-27 04:03] VITALS: BP 149/96; TEMP 36.6; O2SAT 98; BMI 29.1
--- OUTSIDE RECORDS SUMMARY | 2024-03-27 04:06 | XMS_ITS | CCD ---
Author Organization [facility] Care Team Providers Care Factory Lay Out Engineer Name Role Phone Alfredo Mckeon Unavailable [phone] HOUSE, DR PERES Admitting Unavailable HOUSE, DR PERES Attending Unavailable [place], DR PERES Primary Care Unavailable [place], DR VERITO Lim Consulting Unavailable HOUSE, DR PERES Consulting Unavailable LAKSHMIPATHY ., NARENDRANATH Admitting Yue vailable LAKSHMIPATHY ., NARENDRANBARBARA Attending Yue vailable [place]EL[place], DR PERES Primary Care Unavailable PAYALEBHOLDEN, DR CARLI Funes Consulting Unavailable LAKSHMIPATHY ., CAROLINAENDRANBARBARA Consulting Yue vailable HOUSE, DR PERES Admitting Unavailable HOUSE, DR PERES Attending Unavailable HOUSE, DR PERES Primary Care Unavailable [place], DR PERES Consulting Unavailable HIGHLANDER, KELLY Yi Admitting Unavailable HIGHLANDER, KELLY Yi Attending Unavailable HOUSE, DR PERES Primary Care Unavailable [place], DR VERITO Lim Consulting Unavailable HIGHLANDER, KELLY Yi Consulting Unavailable HIGHLANDER, KELLY Yi Admitting Unavailable HIGHLANDER, KELLY Yi Attending Unavailable HOUSE, DR PERES Primary Care Unavailable HIGHLANDER, KELLY Yi Consulting Unavailable READER, TORITO Consulting Unavailable LAKSHMIPATHY ., NARENDRANATH Admitting Yue vailable LAKSHMIPATHY ., NARENDRANATH Attending Yue vailable HIGHLANDER, KELLY Yi Referring Unavailable HOUSE, DR PERES Primary Care Unavailable LAKSHMIPATHY ., NARENDRANATH Consulting Yue vailable LAKSHMIPATHY ., NARENDRANATH Admitting Yue vailable LAKSHMIPATHY ., CAROLINAENDJACOBATH Attending Yue vailable HOUSE, DR PERES Primary Care Unavailable LAKSHMIPATHY ., NARENDRANATH Consulting Yue vailable LAKSHMIPATHY ., NARENDRANATH Admitting Yue vailable LAKSHMIPATHY ., DIMA Attending Yue vailable ROCCO, DR PERES Primary Care Unavailable PAYALHOLDEN, DR CARLI Funes Consulting Unavailable LAKSHMIPATHY ., NARENDTIERRA Consulting Yue CASSIA Mercedes Attending Unavailable CASSIA DEMPSEY Attending Unavailable CASSIA DEMPSEY Attending Unavailable PAOLO PRINCE Attending Unavailable Deangelo VALENTE Attending Unavailable ALEJANDRA DELONG Primary Care Unavailable ALEJANDRA DELONG Primary Care Unavailable Deangelo VALENTE Attending Unavailable ALEJANDRA DELONG Primary Care Physician Allergies Allergy Classification Reported Allergen(s) Allergy Type Date of Onset Reaction(s) Facility (2 sources) lamoTRIgine; Translations: [lamotrigine] Drug Allergy rash, Eruption of skin (disorder) [facility] (2 sources) lamoTRIgine; Translations: [LaMICtal] Drug Allergy [facility] Repository (2 sources) pork allergenic extract; Translations: [Pork] Drug Allergy Unknown (qualifier value) [facility] Repository Medications Current Medications Medication Drug Class(es) Dates Sig (Normalized) Sig (Original) [id number] 200 actuat albuterol 0.09 mg/actuat metered dose inhaler (2 sources) beta2-Adrenergic Agonist Start: 05-07-2020 take 2 puff(s) by inhalation every four hours as needed Albuterol Sulfate HFA 108 (90 Base) MCG/ACT 2 puffs as needed Inhalation every 4 hrs PRN Apr, Active Start: 07-14-2019 albuterol Refi lls(s) 0 Start Date: 07/14/19 Status: Ordered colestipol hydrochloride 1000 mg oral tablet (1 source) Bile Acid Sequestrant Start: 12-10-2020 take 2 tablets by mouth every twenty-four hours Colestipol HCl 1 GM 2 tablets Orally Once a day for 30 day(s) Nov, Active ketorolac tromethamine 10 mg oral tablet (1 source) Nonsteroidal Anti-inflammatory Drug, Cyclooxygenase Inhibitor Start: 03-24-2024 ketorolac 10 mg, Oral, Refills(s) 0 Start Date: 03/24/24 Status: Ordered lithium carbonate 300 mg extended release oral tablet (1 source) [place] Carbonate ER 300 MG Orally Twice a day Active tamsulosin hydrochloride 0.4 mg oral capsule (1 source) alpha-Adrenergic Rafaela Start: 07-14-2019 take 1 capsule by mouth twice daily Flomax 0.4 mg Cap 0.4 mg = 1 cap(s), Oral, BID, # 60 cap(s), Refills(s) 1, Pharmacy: [id number], 160.02, cm, 07/14/19 10:19:00 EDT, Height/Length Measured, 67, kg, 07/14/19 10:19:00 EDT, Weight Measured Start Date: 07/14/19 Status: Ordered Problems Active Problems Problem Classification Problem Date Documented Date Episodic/Chronic Abdominal pain (6 sources) Abdominal pain; Translations: [Unspecified abdominal pain] Onset: 12-10-2020 Resolved: 12-10-2020 Episodic Anxiety disorders (2 sources) Generalized anxiety disorder; Translations: [Generalized anxiety disorder] Onset: 03-10-2023 Chronic Asthma (2 sources) Exacerbation of intermittent asthma; Translations: [Mild intermittent asthma with (acute) exacerbation] 07-14-2019 Chronic Calculus of urinary tract (2 sources) Kidney stone; Translations: [Calculus of kidney] Onset: 03-24-2024 Episodic Esophageal disorders (1 source) Gastroesophageal reflux disease; Translations: [Gastro-esophageal reflux disease without esophagitis] Chronic Headache; including migraine (1 source) Headache 03-24-2024 Episodic Mood disorders (2 sources) Bipolar disorder; Translations: [Depressive disorder] 07-14-2019 Chronic Other connective tissue disease (4 sources) Plantar fascial fibromatosis; Translations: [PLANTAR FASCIAL FIBROMATOSIS] Onset: 03-09-2022 Episodic Other connective tissue disease (4 sources) Pain in right foot; Translations: [PAIN IN RIGHT FOOT] Onset: 03-04-2022 Episodic Other connective tissue disease (1 source) Pain in left foot; Translations: [PAIN IN LEFT FOOT] Onset: 03-09-2022 Episodic Other diseases of kidney and ureters (1 source) Hydronephrosis 07-14-2019 Episodic Spondylosis; intervertebral disc disorders; other back [...] Test Name Value Interpretation Reference Range Facility Ambulatory Visit Summaryon 0 03-24-2024 Ambulatory Visit Summary Ambulatory Visit Summary CHANCE JACOBS :1985 Visit Date:03/24/2024 Ambulatory Visit Instructions Your Diagnosis Kidney stone Your Care Team Attending Physician - SYMONE OLVERA, Deangelo Funes Primary Care Physician - ALEJANDRA DELONG This Is Your Medications List Contact prescribing physician if questions or concerns albuterol ketorolac tamsulosin (Flomax 0.4 mg Cap) Procedures Performed Appendectomy, Cholecystectomy, Colonoscopy, History of tonsillectomy. Discharge Vitals Heart Rate (Peripheral) 94 Respiratory Rate 18 Blood Pressure 139/89 Height 160 cm Height 63 in Weight 74.6 kg Weight 164.465 lb BMI 29.14 What to do next You Need to Schedule the Following Appointments Follow Up with SYMONE OLVERA, ANNITA Schofield When: Where: [address] [place], [place] [id number]- Medications What How Much When Instructions Unchanged albuterol Contact prescribing physician if questions or concerns Unchanged ketorolac 10 Milligram By Mouth Contact prescribing physician if questions or concerns Unchanged tamsulosin (Flomax 0.4 mg Cap) 1 Capsules By Mouth 2 times a day Contact prescribing physician if questions or concerns Allergies LaMICtal (Rash) Pork (Unknown) Problems Ongoing - Any problem that you are currently receiving treatment for. Asthma Bipolar disorder Depression Head ache Hydronephrosis with obstructing calculus Kidney stone Patient Survey You may receive a survey via text or e-mail asking about your office visit. Please share your experience with us by completing your survey. We appreciate your feedback and thank you for choosing us for your care. Education Materials Laser Therapy for Kidney Stones Laser therapy for kidney stones is a procedure to break up rock-like masses that form inside the kidneys (kidney stones). It is done using a device that beams a strong light (laser) on the kidney stones. This breaks the stones up into small pieces. These small pieces may leave your body when you pee (urinate) or may be taken out during the procedure. You may need laser therapy if you have kidney stones that are painful or that are stopping you from being able to pee. Tell a health care provider about: ??? Any allergies you have. ??? All medicines you are taking, including vitamins, herbs, eye drops, creams, and exdr-lvw-puxiwky medicines. ??? Any problems you or family members have had with anesthesia. ??? Any bleeding problems you have. ??? Any surgeries you have had. ??? Any medical conditions you have. ??? Whether you are or may be . What are the risks? Your health care provider will talk with you about risks. These may include: ??? Infection. ??? Bleeding. ??? Allergic reactions to medicines. ??? Damage to: ? The part of your body that drains pee (urine) from the bladder (urethra). ? The bladder. ? The tube that connects the bladder to the kidneys (ureter). ??? Urinary tract infection (UTI). ??? Urethral stricture. This is when the urethra is narrowed by scarring. ??? Trouble peeing. ??? Blockage of the kidney. This may be caused by a piece of kidney stone. What happens before the procedure? When to stop eating and drinking Follow instructions from your provider about what you may eat and drink. These may include: ??? 8 hours before the procedure ? Stop eating most foods. Do not eat meat, fried foods, or fatty foods. ? Eat only light foods, such as toast or crackers. ? All liquids are okay except energy drinks and alcohol. ??? 6 hours before the procedure ? Stop eating. ? Drink only clear liquids, such as water, clear fruit juice, black coffee, plain tea, and sports drinks. ? Do not drink energy drinks or alcohol. ??? 2 hours before the procedure ? Stop drinking all liquids. ? You may be allowed to take medicines with small sips of water. ??? If you do not follow your provider's instructions, your procedure may be delayed or canceled. Medicines ??? Ask your provider about: ? Changing or stopping your regular medicines. These include any diabetes medicines or blood thinners you take. ? Taking medicines such as aspirin and ibuprofen. These medicines can thin your blood. Do not take them unless your provider tells you to. ? Taking wyxa-xum-rcvbkvr medicines, vitamins, herbs, and supplements. Tests ??? You may have a physical exam before the procedure. You may also have tests done. These may include: ? Imaging tests. ? Blood or pee tests. Surgery safety ??? Ask your provider: ? How your surgery site will be marked. ? What steps will be taken to help prevent infection. These steps may include: ? Removing hair at the surgery site. ? Washing skin with a soap that kills germs. ? Taking antibiotics. General instructions ??? Do not use any produc (more content not included)... Normal [facility] Provider Letteron 03-24-2024 Provider Letter Provider Letter March 24, 2024 CHANCE JACOBS [address] [place] [address] : 1985 To Whom It May Concern, Please excuse above patient from work. Date of Illness: From: 03/24/24 To: 04/02/24 May Return to Work On:04/03/24 Restrictions: No work 03/24/24- 04/02/24 Comments: Patient is having surgery 03/30/[address] Valente. She will be off work 03/24/24- 04/02/24. Sincerely, [facility] Dr. Deangelo Valente Normal [facility] MRI LSPINE WO CONon 04-23-19 MRI LSPINE [...] by: CARLI RODRIGUEZ Date: 2022-04-22 16:27 Normal [facility] CT ABD/PELVIS WO CONon 04-20 CT ABD/PELVIS [...] by: VERITO ESPOSITO Date: 2022-04-20 09:15 Normal [facility] XR LSPINE MIN 4 VIEWSon 03-19 XR [...] by: CARLI RODRIGUEZ Date: 2022-04-09 18:35 Normal [facility] MRI ANKLE RT WO CONon 2022 MRI [...] TORITO JOSHI Date: 2022-03-09 17:[address] [facility] XR FOOT ROXANA MIN 3 VIEWSon [...] VERITO ESPOSITO Date: 2022-03-04 16:[address] [facility] Covid-19 PCR (CVDTB)on SARS-CoV-2 (COVID-19) RNA CHICO+probe Ql (Unsp spec) Detected Critically abnormal NOT DETECTED [facility] Comment on above: Result Comment: This test is not yet julian roved or cleared by the [place] FDA. When there are no FDA-approved or cleared tests available, and other criteria are met, FDA can make tests available under an emergency access mechanism called an Emergency Use Authorization (EUA). The EUA for this test is supported by the Moisture Meter Reader of Health and Human Service's (HHS's) declaration [...] longer be used). Performed By: #### C VDTB #### [facility] [address] [address] [address] Rozina De La Cruz HCG,Urineon 10-29-2020 Beta HCG ( test) Ql (U) Negative Normal [place] Comment on above: Result Comment: PERFORMED BY: [facility] [address] [place] [address] PATHOLOGIST CONDITIONER TENDER GEMMA AVALOS M.D. Performed By: #### U HCG #### [facility] [address] 10-29-2020 L - -------- Specimen: [id number] Received: 10/29/20 Status: DIEGO Garsia Num: [id number] Spec Type: Surgical Subm Dr: Alfredo Mckeon MD Tissues: A Duodenum - Biopsy (DUODENAL BX) B Colon Biopsy (SURVEILLANCE BX) Procedures: HE Stain/4, Gross/Micro L4/2 -------- Patient Age/Sex Location Account Attending Physician -------- Chance Khalil 35/F [id number] Alfredo Mckeon MD -------- SPEC NUM: [id number] RECD: 10/29/20 STATUS: DIEGO GARSIA NUM: [id number] LUCIO: 10/29/20 DR: Alfredo Mckeon MD ENTERED: 10/29/20 [facility] DR: RUBY TYPE: Surgical DEPT: S ORDERED: HE Stain/4, [...] one cassette labeled B1. (Rabia) -------- Specimen: [id number] Received: 10/29/20 Status: ARMANICarlos Garsia Num: [id number] Spec Type: Surgical Subm Dr: Alfredo Mckeon MD Tissues: A Duodenum - Biopsy (DUODENAL BX) B Colon Biopsy (SURVEILLANCE BX) Procedures: HE Stain/4, Gross/Micro L4/2 -------- Patient: Chance Khalil [id number] (Continued) -------- Specimen: Received: 10/29/20 (Continued) Signed (signature on file) Luke Andres MD 10/30/20 1448 -------- Specimen: [id number] Received: 10/29/20 Status: ARMANICarlos Req Num: [id number] Spec Type: Surgical Subm Dr: Alfredo Mckeon MD Tissues: A Duodenum - Biopsy (DUODENAL BX) B Colon Biopsy (SURVEILLANCE BX) Procedures: HE Stain/4, Gross/Micro L4/2 -------- Patient: Chance Khalil [id number] (Continued) -------- Specimen: [id number] Received: 10/29/20 (Continued) Microscopic Description A. Two H E stained slides reviewed. Microscopic examination is performed. B. Two H E stained slides reviewed. Microscopic examination is performed. CPT Codes 83090 x 2 -------- -------- Specimen: [id number] Received: 10/29/20 Status: DIEGO Garsia Num: [id number] Spec Type: Surgical Subm Dr: Alfredo Mckeon MD Tissues: A Duodenum - Biopsy (DUODENAL BX) B Colon Biopsy (SURVEILLANCE BX) Procedures: HE Stain/4, Gross/Micro L4/2 -------- Patient: Chance Khalil [id number] (Continued) -------- Signed (signature on file) Luke Andres MD 10/30/20 1448 Normal [place] [facility] SARS-CoV-2 (COVID-19) RNA CHICO+probe Ql (Unsp spec) Negative Normal Negative [place] Comment on above: Order Comment: Healthcare Worker?: N Result Comment: Testing for SARS-CoV-2 by RT-PCR This test was developed and its performance characteristics determined by [employer], [employer]) and validated at the [place]. This test has not been FDA cleared [...] is terminated or revoked sooner. PERFORMED BY: [place] [address] PATHOLOGIST CONDITIONER TENDER GEMMA AVALOS M.D. Performed By: #### C OVID 19 [facility] #### [facility] [address] [id number] [facility] Vital Signs Date Time Vital Sign Value Performing Clinician Facility 03-24-2024 09:13-0500 Blood Pressure Location Deangelo VALENTE [facility] 03-24-2024 09:13-0500 Diastolic blood pressure 89 mm[Hg] Deangelo VALENTE [facility] 03-24-2024 09:13-0500 Heart rate 94 /min Deangelo VALENTE [facility] 03-24-2024 09:13-0500 Respiratory rate 18 /min Deangelo VALENTE [facility] 03-24-2024 09:13-0500 Systolic blood pressure 139 mm[Hg] Deangelo VALENTE [facility] 12-10-2020 15:45-0400 Body height 160.02 cm Alfredo Mckeon Other [facility] Other 12-10-2020 15:45-0400 Body mass index (BMI) [Ratio] 26.21 kg/m2 Alfredo Mckeon Other [facility] Other 12-10-2020 15:45-0400 Body weight 67.13 kg Alfredo Mckeon Other [facility] Other Encounters Encounter Date Encounter Type Care Provider Facility Start: 03-30-2024 ambulatory ALEJANDRA DELONG Facility:C D:[id number] Start: 03-24-2024 End: 03-24-2024 ambulatory Deangelo VALENTE Facility:[facility] Start: 03-24-2024 End: 03-24-2024 Patient encounter procedure Deangelo VALENTE [facility] Start: 07-14-2023 End: 07-14-2023 ambulatory PAOLO PRINCE Not Available Start: 06-17-2023 End: 06-17-2023 ambulatory CASSIA DEMPSEY Not Available Start: 06-16-2023 End: 06-16-2023 ambulatory CHRISTKEYSHAWNER ROSELYN Not Available Start: 06-07-2023 End: 06-07-2023 ambulatory CHRISTOPHER ROSELYN Not Available Start: 03-10-2023 End: 03-10-2023 ambulatory [place] Start: 05-07-2022 End: 05-08-2022 ambulatory NARENDRANATH LAKSHMIPATHY . Facility:[facility] Start: 04-22-2022 End: 04-23-2022 ambulatory NARENDRANATH LAKSHMIPATHY . Facility:[facility] Start: 04-20-2022 End: 04-21-[address] LARISA VALIENTE Facility:[facility] Start: 04-09-2022 End: 04-10-2022 ambulatory NARENDRANATH LAKSHMIPATHY . Facility:[facility] Start: 04-09-2022 End: 04-10-2022 ambulatory NARENDRANATH LAKSHMIPATHY . Facility:[facility] Start: 03-09-2022 End: 03-10-2022 ambulatory KELLY GLOVER Facility:[facility] Start: 03-04-2022 End: 2022 ambulatory KELLY GLOVER Facility:[facility] Start: 10-24-2021 End: 10-24-[address] LARISA VALIENTE Facility:[facility] Start: 12-10-2020 Office outpatient visit 15 minutes Alfredo FORTE Gastroenterology Procedures Date Procedure Procedure Detail Performing Clinician Appendectomy Deangelo VALENTE Cholecystectomy Deangelo PRADO Colonoscopy Deangelo VALENTE History of tonsillectomy Pat valente VALENTE Immunizations Immunization Date Immunization Notes Care Provider Poonam blackwood 05-25-2016 Toradol per 15 mg Alfredo Dada Chary Other [facility] Other Payers Date Payer Category Payer Unknown [id number] 1985 Unknown [id number] 2.16.84 [id number] 1985 Unknown [id number] 2.16.84 [id number] 1985 Unknown [id number] 2.16.84 [id number] 1985 Unknown [id number] 2.16.84 [id number] 1985 Unknown [id number] 2.16.84 [id number] 1985 Unknown [id number] 2.16.84 [id number] 1985 Unknown [id number] 2.16.84 [id number] 1985 Unknown [id number] 2.16.84 [id number] 1985 Unknown [id number] 2.16.84 [id number] 1985 Unknown [id number] 2.16.84 [id number] 1985 Unknown [id number] 2.16.84 [id number] 1985 Unknown [id number] 2.16.84 [id number] 1985 Unknown [id number] 2.16.8 [id number] 1958 [facility] [id number] Social History Date Type Detail Facility Unknown if ever smoked [facility] Other Sex Assigned At [facility] Start: 03-24-2024 Tobacco smoking status Never s moked tobacco (finding) [facility] Functional Status Date Assessment Result Facility 03-24-2024 Functional Status N/A [facility] Discharge instructions 03-24-2024 Note Date & Type Note Facility 03-24-2024 Hospital Discharg e instructions Patient Education 03/24/2024 10:01:50 Laser Therapy for Kidney Stones Laser Therapy for Kidney Stones Laser therapy for kidney stones is a procedure to break up rock-like masses that form inside the kidneys (kidney stones). It is done using a device that beams a strong light (laser) on the kidney stones. This breaks the stones up into small pieces. These small pieces may leave your body when you pee (urinate) or may be taken out during the procedure. You may need laser therapy if you have kidney stones that are painful or that are stopping you from being able to pee. Tell a health care provider about: Any allergies you have. All medicines you are taking, including vitamins, herbs, eye drops, creams, and tywo-hwn-cgyjtno medicines. Any problems you or family members have had with anesthesia. Any bleeding problems you have. Any surgeries you have had. Any medical conditions you have. Whether you are or may be . What are the risks? Your health care provider will talk with you about risks. These may include: Infection. Bleeding. Allergic reactions to medicines. Damage to: ?The part of your body that drains pee (urine) from the bladder (urethra). ?The bladder. ?The tube that connects the bladder to the kidneys (ureter). Urinary tract infection (UTI). Urethral stricture. This is when the urethra is narrowed by scarring. Trouble peeing. Blockage of the kidney. This may be caused by a piece of kidney stone. What happens before the procedure? When to stop eating and drinking Follow instructions from your provider about what you may eat and drink. These may include: 8 hours before the procedure ?Stop eating most foods. Do not eat meat, fried foods, or fatty foods. ?Eat only light foods, such as toast or crackers. ?All liquids are okay except energy drinks and alcohol. 6 hours before the procedure ?Stop eating. ?Drink only clear liquids, such as water, clear fruit juice, black coffee, plain tea, and sports drinks. ?Do not drink energy drinks or alcohol. 2 hours before the procedure ?Stop drinking all liquids. ?You may be allowed to take medicines with small sips of water. If you do not follow your provider's instructions, your procedure may be delayed or canceled. Medicines Ask your provider about: ?Changing or stopping your regular medicines. These include any diabetes medicines or blood thinners you take. ?Taking medicines such as aspirin and ibuprofen. These medicines can thin your blood. Do not take them unless your provider tells you to. ?Taking fxrg-vyn-igwtmxr medicines, vitamins, herbs, and supplements. Tests You may have a physical exam before the procedure. You may also have tests done. These may include: ?Imaging tests. ?Blood or pee tests. Surgery safety Ask your provider: ?How your surgery site will be marked. ?What steps will be taken to help prevent infection. These steps may include: ?Removing hair at the surgery site. ?Washing skin with a soap that kills germs. ?Taking antibiotics. General instructions Do not use any products that contain nicotine or tobacco for at least 4 weeks before the procedure. These products include cigarettes, chewing tobacco, and vaping devices, such as e-cigarettes. If you need help quitting, ask your provider. If you will be going home right after the procedure, plan to have a responsible adult: ?Take you home from the hospital or clinic. You will not be allowed to drive. ?Care for you for the time you are told. What happens during the procedure? An IV will be inserted into one of your veins. You will be given: ?A sedative. This helps you relax. ?Anesthesia. This keeps you from feeling pain. It will make you fall asleep for surgery. A tool with a camera on the end (ureteroscope) will be put into your urethra. It will be moved through your bladder to your kidney. It will send pictures to a screen in the operating room. This will show what parts of your kidney need to be treated. A tube will be put through the ureteroscope. It will be moved into your kidney. The laser device will be put into your kidney through the tube. The laser will be used to break up the kidney stones. A tool with a tiny wire basket may be put through the tube into your kidney. This can help remove the small pieces of the kidney stone. A small mesh tube (stent) may be placed to allow your kidney to drain. The tube and ureteroscope will be taken out at the end of the surgery. The procedure may vary among providers and hospitals. What happens after the procedure? Your blood pressure, heart rate, breathing rate, and blood oxygen level will be monitored until you leave the hospital or clinic. If you had a stent placed, it may have a string that will be secured to your skin. This helps your provider remove the stent. You may be given a strainer to collect any stone pieces that you pass in your pee. Your provider may have these tested. This information is not intended to replace advice given to you by your health care provider. Make sure you discuss any questions you have with your health care provider. Document Revised: 10/02/2022 Document Reviewed: 10/02/2022 [employer] Patient Education 2023 [employer]. Follow Up Care 03/22/2024 15:40:31 With:SYMONE OLVERA, Deangelo Funes, URL Address: [address] [place] [address]- When: Unknown [facility] Clinical Note 03-24-2024 Note Date & Type Note Facility 03-24-2024 Note Urology Office/Clini c Note Chief Complaint referral kidney stone HPI Staff 39yr old female pt referred for history of impacted kidney stones. She is currently having left side pain that started in her abdomen on 03/19/24. It then moved up to her rib and flank area on 03/21/24. She has been having pain since. She was given Flomax and Toradol. ZOHAIB completed at [facility] on 03/23/24. - are faxing over now Cannot provide urine sample at this time. S/p cysto, right left ureteral dilation, left ureteroscopy, left ureteral stone basket extraction & left stent placement on 08/03/2019. Dysuria: denies Incomplete bladder emptying: denies Hematuria: denies Frequency: every 2-4hrs Urgency: denies Nocturia: rarely Stream: good stream Leaking: denies Post void dripping: denies Wearing pads/ Depends: denies Urge incontinence: denies Stress incontinence: denies Incontinence without Sensory Awareness: denies Abdominal pain: yes, started Wednesday Flank pain: yes, started Wednesday History of Present Illness Tests reviewed: reviewed CT, renal US, external records. I have reviewed the previous health record information and history for this patient from external provider and Dr. Valente. I have reviewed and verified the staff HPI to be accurate for this encounter. There have been no associated fever, chills, flank pain, or blood in the urine. Denies any urinary infections since last encounter. Review of Systems PHQ Score Initial Depression Screen Score: 0 SCORE ROS - Provider Constitutional: denies weight loss, denies hot flashes. Eyes: denies eye problems. Gastrointestinal: denies nausea, denies vomiting. Cardiovascular: denies chest pain or angina. Integumentary: no dryness Musculoskeletal: denies musculoskeletal symptoms. ENMT: denies otolaryngeal symptoms. Respiratory: no shortness of breath. Heme/Lymph: denies easy bleeding tendency, denies easy bruising tendency. Psychiatric: no confusion, no anxiety. Genitourinary: See HPI. Physical Exam Vitals & Measurements HR: 94(Peripheral) RR: 18 BP: 139/89 HT: 63 in HT: 160 cm WT: 74.6 kg WT: 164.465 lb BMI: 29.14 General Appearance: alert , no acute distress, well nourished, well developed female. Head: normocephalic . Eyes: normal orbit and globe. ENMT: normal examination of external ears. Psychiatric: cooperative, affect appropriate for age, normal judgement, euthymic mood. Assessment/Plan 39 yo female referred by Lorena Flowers for hx of impacted kidney stones. Last seen by Dr. Valente in office 07/28/19. Family history ~liver, kidney and colon cancer. BBSQ 6 1. Kidney stone (N20.0: Calculus of kidney) S/p cysto, rigid L ureteral dilation, L URS, L stone basket extraction, L stent placement 08/03/19. S/p cysto with L stent removal 08/14/19. CT AP wo con 04/20/22 [facility] - neg for stones or hydro. Renal US 03/23/24 [facility] (results read over the phone to LG) - R ~4 mm stone. L ~2 stones mid pole, measuring 4 mm. 6 mm stone in the left renal pelvis. Discussed renal US results with pt. She reports bladder pain after having to drink prior to ZOHAIB. Pt states this is new. C/o left-sided pain that started in her abdomen 03/19/24. Pt states the pain moved up to her rib and flank area 03/21/24. Was experiencing nausea. Pt was started on Flomax and Toradol. Mentions Toradol does relieve pain. Pt states her stones are not visible on KUB. Advised pt due to this she is not a candidate for ESWL. Discussed laser litho to treat left sided stones. Pt willing to proceed with surgical mgmt. -Cont Flomax and Toradol -Will schedule cysto, L URS, L laser litho, L stent placement. The procedural risks, benefits, details, and treatment alternatives have been discussed with the patient. These include bleeding, infection, inability to break or retrieve all of the stone, injury to the ureter (the tube which connects the kidney to the bladder), injury to the kidney scarring of the ureter, and need for repeat procedures, among others. Full informed consent has been obtained. Will order General anesthesia. -Treat R sided stone in the future if it increases in size Follow-up With When Contact Information SYMONE OLVERA, Deangelo Funes, L [address] [place] [address]- Additional Instructions: Schedule L laser litho Patient Education Laser Therapy for Kidney Stones IIrasema, personally scribed for Dr. Valente on 03/24/2024 10:05:51. . Documentation recorded by the scribe, Irasema Amato, accurately reflects the services(s) I performed and decisions made by me. Authenticated by Dr. Valente on 03/24/2024 10:08:50. Problem List/Past Medical History Ongoing Asthma Bipolar disorder Depression Head ache Hydronephrosis with obstructing calculus Kidney stone Historical No qualifying data Procedure/Surgical History Appendectomy, Cholecystectomy, Colonoscopy, History of tonsillectomy. Medicat (more content not included)... [facility] Comment on above: Result Comment: Elec tronically Signed By: Deangelo VALENTE MD\.br\Date and Time Signed: 03/24/24 10:08 EST\.br\Electronically Co-Signed By: Irasema Amato.br\Date and Time Co-Signed: 03/24/24 10:06 EST Clinical Note 03-24-2024 Note Date & Type Note Facility 03-24-2024 Note Patient Education Nephrology Laser Therapy for Kidney Stones Laser therapy for kidney stones is a procedure to break up rock-like masses that form inside the kidneys (kidney stones). It is done using a device that beams a strong light (laser) on the kidney stones. This breaks the stones up into small pieces. These small pieces may leave your body when you pee (urinate) or may be taken out during the procedure. You may need laser therapy if you have kidney stones that are painful or that are stopping you from being able to pee. Tell a health care provider about: ??? Any allergies you have. ??? All medicines you are taking, including vitamins, herbs, eye drops, creams, and pntj-hoq-vkfpxyl medicines. ??? Any problems you or family members have had with anesthesia. ??? Any bleeding problems you have. ??? Any surgeries you have had. ??? Any medical conditions you have. ??? Whether you are or may be . What are the risks? Your health care provider will talk with you about risks. These may include: ??? Infection. ??? Bleeding. ??? Allergic reactions to medicines. ??? Damage to: ? The part of your body that drains pee (urine) from the bladder (urethra). ? The bladder. ? The tube that connects the bladder to the kidneys (ureter). ??? Urinary tract infection (UTI). ??? Urethral stricture. This is when the urethra is narrowed by scarring. ??? Trouble peeing. ??? Blockage of the kidney. This may be caused by a piece of kidney stone. What happens before the procedure? When to stop eating and drinking Follow instructions from your provider about what you may eat and drink. These may include: ??? 8 hours before the procedure ? Stop eating most foods. Do not eat meat, fried foods, or fatty foods. ? Eat only light foods, such as toast or crackers. ? All liquids are okay except energy drinks and alcohol. ??? 6 hours before the procedure ? Stop eating. ? Drink only clear liquids, such as water, clear fruit juice, black coffee, plain tea, and sports drinks. ? Do not drink energy drinks or alcohol. ??? 2 hours before the procedure ? Stop drinking all liquids. ? You may be allowed to take medicines with small sips of water. ??? If you do not follow your provider's instructions, your procedure may be delayed or canceled. Medicines ??? Ask your provider about: ? Changing or stopping your regular medicines. These include any diabetes medicines or blood thinners you take. ? Taking medicines such as aspirin and ibuprofen. These medicines can thin your blood. Do not take them unless your provider tells you to. ? Taking qqxs-qox-ucflrng medicines, vitamins, herbs, and supplements. Tests ??? You may have a physical exam before the procedure. You may also have tests done. These may include: ? Imaging tests. ? Blood or pee tests. Surgery safety ??? Ask your provider: ? How your surgery site will be marked. ? What steps will be taken to help prevent infection. These steps may include: ? Removing hair at the surgery site. ? Washing skin with a soap that kills germs. ? Taking antibiotics. General instructions ??? Do not use any products that contain nicotine or tobacco for at least 4 weeks before the procedure. These products include cigarettes, chewing tobacco, and vaping devices, such as e-cigarettes. If you need help quitting, ask your provider. ??? If you will be going home right after the procedure, plan to have a responsible adult: ? Take you home from the hospital or clinic. You will not be allowed to drive. ? Care for you for the time you are told. What happens during the procedure? An IV will be inserted into one of your veins. ??? You will be given: ? A sedative. This helps you relax. ? Anesthesia. This keeps you from feeling pain. It will make you fall asleep for surgery. ??? A tool with a camera on the end (ureteroscope) will be put into your urethra. It will be moved through your bladder to your kidney. It will send pictures to a screen in the operating room. This will show what parts of your kidney need to be treated. ??? A tube will be put through the ureteroscope. It will be moved into your kidney. ??? The laser device will be put into your kidney through the tube. The laser will be used to break up the kidney stones. ??? A tool with a tiny wire basket may be put through the tube into your kidney. This can help remove the small pieces of the kidney stone. ??? A small mesh tube (stent) may be placed to allow your kidney to drain. ??? The tube and ureteroscope will be taken out at the end of the surgery. The procedure may vary among providers and hospitals. What happens after the procedure? Your blood pressure, heart rate, breathing rate, and blood oxygen level will be monitored until you leave the hospital or clinic. ??? If you had a stent placed, it may have a string that will be secured to your skin. This helps yo (more content not included)... [facility] Consultation note 05-07-2022 Note Date & Type [...] plan. Her Oswestry scale was 10. [facility] Consultation note 04-09-2022 Note Date & [...] after she undergoes her imaging studies. [facility] Evaluation note 12-10-2020 Note Date & Type Note Facility 10-26-2021 Evaluation note Encounter Date Diagnosis Assessment Notes Nov, Abdominal pain (ICD-10 - R10.9) Nov, Nausea and vomiting (ICD-10 - R11.2) Nov, Diarrhea (ICD-10 - R19.7) PT GIVEN COPY OF LOW FODMAP DIET RTO 6 WEEKS Nov, Hiatal hernia (ICD-10 - K44.9) [facility] Other Evaluation + Plan note Note Date & Type Note Facility Evaluation + Plan note No data available for this section [facility] History general Narrative - Reported Note Date & Type Note Facility History general Narrative - Reported Type Medical History anxiety Medical History asthma Surgical History cholecystectomy 2007 Surgical History oral surgery Surgical History appendectomy 2005 Surgical History KIDNEY SCRAPPED OUT Hospitalization History see above health history [facility] Other Progress note Note Date & Type Note Facility Progress note No data available for this section [facility] Summary Purpose Family History No Family History Records FoundNo Family History Records FoundNo Family History Records FoundNo Family History Records FoundNo Family History Records Found No data available for this section Advance Directives No Advanced Directives Records FoundNo Advanced Directives Records FoundNo Advanced Directives Records FoundNo Advanced Directives Records FoundNo Advanced Directives Records Found Additional Source Comments INFORMATION SOURCE (unrecogn ized section and content) DATE CREATED AUTHOR 03/10/2021 [facility] DATE CREATED AUTHOR AUTHOR'S ORGANIZ ATION 05/10/2022 [facility] DATE CREATED AUTHOR AUTHOR'S ORGANIZ ATION 03/12/2023 [place] DATE CREATED AUTHOR AUTHOR'S ORGANIZ ATION 07/15/2023 [facility] EPIC DATE CREATED AUTHOR AUTHOR'S ORGANIZ ATION 03/25/2024 [facility] REASON FOR VISIT (unrecogniz ed section and content) colonoscopy follow up on 10-16 for Abdominal pain, nausea, vomiting and diarrhea. Patient Care team informatio n (unrecognized section and content) Personnel Name: ALEJANDRA DELONG Address: Address: [address] [place] [id number] FOR RECORDS PERTAINING TO PATIENTS WHO ARE [...] BE BASED ON THE PRIMARY CLINICAL RECORDS. [facility] [employer] [facility]. provides no warranty or guarantee of the accuracy or completeness of information in this document.
--- NOTE | 2024-03-27 04:12 | ED_ITS ---
HPI HPI - General Adult General Chief complaint: Urogenital-Female Stated complaint: LEFT FLANK PAIN, NAUSEA, VOMITING Time Seen by Provider: 03/27/24 04:01 Source: patient Mode of arrival: ambulance History of Present Illness HPI narrative: 39-year-old female presents for left flank pain. She has been diagnosed with a kidney stone by ultrasound and was seen by her urologist who has scheduled what appears to be cystoscopy in a few days. The pain got worse and its on the left side and its moderate to severe now continuous. No fever or vomiting. No injury. Related Data Home Medications ?Medication ?Instructions ?Recorded ?Confirmed amoxicillin 500 mg capsule 500 mg PO TID 11/19/23 11/19/23 buspirone 5 mg tablet 5 mg PO BID 11/19/23 11/19/23 escitalopram oxalate 5 mg tablet 5 mg PO QAM 11/19/23 11/19/23 hydroxyzine pamoate 25 mg capsule 25 mg PO BID PRN anxiety 11/19/23 11/19/23 ibuprofen 600 mg tablet 600 mg PO Q6H PRN pain 11/19/23 11/19/23 sertraline 50 mg tablet 50 mg PO DAILY 11/19/23 11/19/23 ketorolac 10 mg tablet mg 03/27/24 tamsulosin 0.4 mg capsule mg PO 03/27/24 Previous Rx's ?Medication ?Instructions ?Recorded hydrocodone 5 mg-acetaminophen 325 1 tab PO Q6H PRN pain 5 days #20 03/27/24 mg tablet tabs ondansetron 4 mg disintegrating 4 mg PO Q6H PRN nausea and 03/27/24 tablet vomiting #20 tabs Allergies Allergy/AdvReac Type Severity Reaction Status Date / Time lamotrigine (From Lamictal) Allergy Unknown Rash Verified 03/27/24 04:11 Opioid HPI Opioid Management Most Recent Opioid Data: Last Pain Scale 8 03/27/24 04:54 03/27/24 Last MAR Pain Assessment 03/27/24 04:54 Review of Systems ROS Narrative A ten point review of systems is negative except as noted above. PFSH PFSH Medical History Acid reflux ?K21.9 - Gastro-esophageal reflux disease without esophagitis (ICD-10) History of kidney stones ?Z87.442 - Personal history of urinary calculi (ICD-10) Surgical History H/O ureteroscopy ?Z98.890 - Other specified postprocedural states (ICD-10) History of appendectomy ?Z90.49 - Acquired absence of other specified parts of digestive tract (ICD- 10) H/O rhinoplasty ?Z98.890 - Other specified postprocedural states (ICD-10) History of tonsillectomy and adenoidectomy ?Z90.89 - Acquired absence of other organs (ICD-10) Hx of LASIK ?Z98.890 - Other specified postprocedural states (ICD-10) History of laparoscopic cholecystectomy ?Z90.49 - Acquired absence of other specified parts of digestive tract (ICD- 10) Social History Little interest or pleasure in doing things: not at all Feeling down, depressed, or hopeless: not at all Exam Narrative Exam Narrative: Nurses note and vital signs reviewed and patient is not hypoxic. General: The patient appears well and in no apparent distress. Patient is resting comfortably on cart. Skin: Warm, dry, no pallor noted. There is no rash noted. Head: Normocephalic, atraumatic Eye: Normal conjunctiva, no drainage Ears, Nose, Mouth, and Throat: oral mucosa is moist. Nares patent. Cardiovascular: Regular Rate and Rhythm Respiratory: Patient is in no distress, no accessory muscle use, lungs are clear to auscultation, no wheezing, rales or rhonchi Back: non-tender, no CVA tenderness bilaterally to percussion. GI: Soft and nontender nondistended Musculoskeletal: The patient has no evidence of calf tenderness, no pitting edema, symmetrical pulses noted bilaterally Neurological: A&O, normal speech Psychiatric: Cooperative Constitutional Vital Signs, click to edit/add: Last Vital Signs Temp 97.8 F 03/27/24 04:03 Resp 16 03/27/24 04:03 BP 149/96 H 03/27/24 04:03 Pulse Ox 98 03/27/24 04:03 O2 Del Method Room Air 03/27/24 04:03 Course Vital Signs Vital signs: Vital Signs Temperature 97.8 F 03/27/24 04:03 Respiratory Rate 16 03/27/24 04:03 Blood Pressure 149/96 H 03/27/24 04:03 Pulse Oximetry 98 03/27/24 04:03 Oxygen Delivery Method Room Air 03/27/24 04:03 Temperature 97.8 F 03/27/24 04:03 Respiratory Rate 16 03/27/24 04:03 Blood Pressure 149/96 H 03/27/24 04:03 Pulse Oximetry 98 03/27/24 04:03 Oxygen Delivery Method Room Air 03/27/24 04:03 Medical Decision Making MDM Narrative Medical decision making narrative: WBC is 11 and there is no evidence of UTI. She was given IV morphine and feels improved and will be discharged home with a prescription for [place]. She has follow-up appointment with Dr. Valente for apparent cystoscopy. Treatment diagnosis and follow-up were discussed with the patient. Differential Diagnosis Differential Diagnosis: Kidney stone, UTI Lab Data Lab results reviewed: Yes I reviewed the patient's lab results Labs: Lab Results 03/27/24 03/27/24 Range/Units 04:10 04:15 WBC 11.6 H (4.0-11.0) 10^3/uL RBC 5.25 (4.20-5.40) 10^6/uL Hgb 14.8 (12.0-16.0) g/dL Hct 44.0 (36.0-48.0) % MCV 83.8 (81.0-99.0) fL MCH 28.2 (26.7-34.0) pg MCHC 33.6 (29.9-35.2) g/dL RDW 13.1 (11.0-15.0) % Plt Count 303 (150-450) 10^3/uL MPV 8.7 L (9.5-13.5) fL Neut % (Auto) 89.9 H (43.0-75.0) % Lymph % (Auto) 6.1 L (20.5-60.0) % Hale % (Auto) 2.9 (1.7-12.0) % Eos % (Auto) 0.6 L (0.9-7.0) % Baso % (Auto) 0.2 (0.2-2.0) % Neut # (Auto) 10.5 H (1.4-6.5) 10^3/uL Lymph # (Auto) 0.7 L (1.2-3.8) 10^3/uL Hale # (Auto) 0.3 (0.3-0.8) 10^3/uL Eos # (Auto) 0.1 (0.0-0.7) 10^3/uL Baso # (Auto) 0.0 (0.0-0.1) 10^3/uL Abs Immat Gran (auto) 0.03 (0.00-0.03) 10^3/uL Imm/Tot Granulo (auto) 0.3 (0.0-0.5) % Sodium 138 (136-145) mmol/L Potassium 4.3 (3.5-5.1) mmol/L Chloride 102 (98-107) mmol/L Carbon Dioxide 22.1 (21.0-32.0) mmol/L Anion Gap 18.2 BUN 20.0 H (7.0-18.0) mg/dL Creatinine 1.09 H (0.55-1.02) mg/dL Est GFR ( Amer) >60 (>=60 mL/min/1.73m^2) Est GFR (Non-Af Amer) 56 L (>=60 mL/min/1.73m^2) BUN/Creatinine Ratio 18.3 Glucose 120 H (74-106) mg/dL Calcium 9.2 (8.5-10.1) mg/dL Urine Color Yellow (YELLOW) Urine Clarity Clear (CLEAR) Urine pH 6.0 (5.0-9.0) Ur Specific [place] 1.020 (1.005-1.025) Urine Protein 30 A (NEG/TRACE) mg/dL Urine Glucose (UA) Negative (NEGATIVE) mg/dL Urine Ketones 15 A (NEGATIVE) mg/dL Urine Occult Blood Negative (NEGATIVE) Urine Nitrite Negative (NEGATIVE) Urine Bilirubin Negative (NEGATIVE) Urine Urobilinogen 0.2 (0.2-1.0) EU/dL Ur Leukocyte Esterase Negative (NEGATIVE) Urine RBC 0-2 (0-2) #/HPF Urine WBC 0-2 A (NONE SEEN) #/HPF Ur Squamous Epith Cells Few A (NONE/RARE) #/LPF Urine Crystals None seen (None Seen) #/HPF Urine Bacteria Small A (NONE SEEN) #/HPF Urine Casts None seen (NONE SEEN) #/LPF Urine Mucus Small A (NONE SEEN) Ur Culture Indicated? Yes Urine HCG, Qual Negative (NEGATIVE) Discharge Plan Discharge Chief Complaint: Urogenital-Female Clinical Impression: Flank pain Patient Disposition: Home, Self-Care Time of Disposition Decision: 05:00 Condition: Good Mode of Transportation: Private Vehicle Prescriptions / Home Meds: New hydrocodone-acetaminophen 5-325 mg tablet 1 tab PO Q6H PRN (Reason: pain) 5 Days Qty: 20 0RF ondansetron 4 mg tablet,disintegrating 4 mg PO Q6H PRN (Reason: nausea and vomiting) Qty: 20 0RF No Action amoxicillin 500 mg capsule 500 mg PO TID buspirone 5 mg tablet 5 mg PO BID escitalopram oxalate 5 mg tablet 5 mg PO QAM hydroxyzine pamoate 25 mg capsule 25 mg PO BID PRN (Reason: anxiety) ibuprofen 600 mg tablet 600 mg PO Q6H PRN (Reason: pain) sertraline 50 mg tablet 50 mg PO DAILY ketorolac 10 mg tablet tamsulosin 0.4 mg capsule PO Print Language: Persian Instructions: Flank Pain (ED) Additional Instructions: Follow-up with Dr. Valente Referrals: Ilana Carmona, [employer] [Primary Care Provider] - 1 week
[2024-03-27 04:21] LABS: Basophils Percent Auto 0.2 % (0.2-2.0); Eosinophils Absolute Auto 0.1 10^3/uL (0.0-0.7); Eosinophils Percent Auto 0.6 % (0.9-7.0); Hemoglobin 14.8 g/dL (12.0-16.0); Immature Granulocytes Abs Auto 0.03 10^3/uL (0.00-0.03); Immature Granulocytes Pct Auto 0.3 % (0.0-0.5); Lymphocytes Absolute Auto 0.7 10^3/uL (1.2-3.8); Lymphocytes Percent Auto 6.1 % (20.5-60.0); Mean Corpuscular HGB Conc 33.6 g/dL (29.9-35.2); Mean Corpuscular Hemoglobin 28.2 pg (26.7-34.0); Mean Corpuscular Volume 83.8 fL (81.0-99.0); Mean Platelet Volume 8.7 fL (9.5-13.5); Monocytes Absolute Auto 0.3 10^3/uL (0.3-0.8); Monocytes Percent Auto 2.9 % (1.7-12.0); Neutrophils Absolute Auto 10.5 10^3/uL (1.4-6.5); Neutrophils Percent Auto 89.9 % (43.0-75.0); Platelet Count 303 10^3/uL (150-450); Red Blood Count 5.25 10^6/uL (4.20-5.40); Red Cell Distribution Width 13.1 % (11.0-15.0); White Blood Count 11.6 10^3/uL (4.0-11.0)
[2024-03-27 04:24] LABS: HCG Qualitative Urine* NEGATIVE (NEGATIVE); Internal Control Within Normal Limits
[2024-03-27 04:26] LABS: Bilirubin Urine NEGATIVE (NEGATIVE); Blood Urine NEGATIVE (NEGATIVE); Clarity Urine CLEAR (CLEAR); Color Urine YELLOW (YELLOW); Glucose Urine UA NEGATIVE (NEGATIVE); Ketones Urine 15 mg/dL (NEGATIVE); Leukocyte Esterase Urine NEGATIVE (NEGATIVE); Nitrite Urine NEGATIVE (NEGATIVE); Protein Urine 30 mg/dL (NEG/TRACE); Urobilinogen Urine 0.2 EU/dL (0.2-1.0)
[2024-03-27] MEDS: MORPHINE SULFATE 4 MG/ML VIAL IV ×2 (04:29→04:54)
[2024-03-27] MEDS: ONDANSETRON PF 4 MG/2 ML VIAL IV (04:29)
[2024-03-27] MEDS: 0.9 % SODIUM CHLORIDE 1,000 ML 1000 ML IV (04:29)
[2024-03-27 04:36] LABS: Bacteria Urine SMALL #/HPF (NONE SEEN); Cast Seen? NONE SEEN #/LPF (NONE SEEN); Crystals Seen? None Seen #/HPF (None Seen); Mucus Urine SMALL (NONE SEEN); RBC Urine 0-2 #/HPF (0-2); Squamous Epithelial Cell Urine FEW #/LPF (NONE/RARE); Urine Culture Indicated YES; WBC Urine 0-2 #/HPF (NONE SEEN)
[2024-03-27 04:51] LABS: Anion Gap 18.2; BUN Creatinine Ratio 18.3; Calcium 9.2 mg/dL (8.5-10.1); Carbon Dioxide 22.1 mmol/L (21.0-32.0); Chloride 102 mmol/L (98-107); Estimated GFR (African America >60 (>=60 mL/min/1.73m^2); Estimated GFR (Non-African Ame 56 (>=60 mL/min/1.73m^2); Glucose 120 mg/dL (74-106); Potassium 4.3 mmol/L (3.5-5.1); Sodium 138 mmol/L (136-145)
--- NOTE | 2024-03-27 04:57 | PC.NURSE ---
Pt c/o pain at an 7-8 in the flank again. The nausea has resolved. No emesis. Re-medicated for pain.
[2024-03-27 05:26] VITALS: O2SAT 99
== END 2024-03-27 05:28 | disposition home or self-care (01) ==
PROVIDERS: Emergency Provider Emergency Medicine; PCP Nurse Practitioner
DX: Z01.812 Encounter for preprocedural laboratory examination (principal); N20.0 Calculus of kidney; N39.0 Urinary tract infection, site not specified
CPT/HCPCS: 36415; 80048; 81001; 84703; 85025; 85610; 85730; 87086; 96374; 96375; 99284; J2270; J2405

== ENCOUNTER 2024-03-27 12:28 | Outpatient (OUT) | payer OTHER, SELFPAY ==
--- OUTSIDE RECORDS SUMMARY | 2024-03-27 12:46 | XMS_ITS | CCD ---
Author Organization [facility] Care Team Providers Care Respiratory Therapist Name Role Phone Alfredo Mckeon Unavailable HOUSE, DR PERES Admitting Unavailable HOUSE, DR PERES Attending Unavailable BRIGHTON, DR PERES Primary Care Unavailable MONETTA, DR VERITO Lim Consulting Unavailable HOUSE, DR PERES Consulting Unavailable LAKSHMIPATHY ., NARENDRANATH Admitting Yue vailable LAKSHMIPATHY ., NARENDRANBARBARA Attending Yue vailable BRIGHTON, DR PERES Primary Care Unavailable PAYALEBHOLDEN, DR CARLI Funes Consulting Unavailable LAKSHMIPATHY ., CAROLINAENDRANBARBARA Consulting Yue vailable HOUSE, DR PERES Admitting Unavailable HOUSE, DR PERES Attending Unavailable HOUSE, DR PERES Primary Care Unavailable BRIGHTON, DR PERES Consulting Unavailable HIGHLANDER, KELLY Yi Admitting Unavailable HIGHLANDER, KELLY Yi Attending Unavailable HOUSE, DR PERES Primary Care Unavailable MONETTA, DR VERITO Lim Consulting Unavailable HIGHLANDER, KELLY [...] Eruption of skin (disorder) [facility] (2 sources) lamoTRIgine; Translations: [LaMICtal] Drug Allergy [facility] Rep[facility] (2 sources) pork allergenic extract; Translations: [Pork] Drug Allergy Unknown (qualifier value) [facility] Repository Medications Current Medications Medication Drug Class(es) Dates Sig (Normalized) Sig (Original) [id number] 200 actuat albuterol 0.09 mg/actuat metered dose [...] mg extended release oral tablet (1 source) Casanova Carbonate ER 300 MG Orally Twice a day Active tamsulosin hydrochloride 0.4 mg oral capsule (1 source) alpha-Adrenergic Rafaela Start: 07-14-2019 take 1 capsule by mouth twice daily Flomax 0.4 mg Cap 0.4 mg = 1 cap(s), Oral, BID, # 60 cap(s), Refills(s) 1, Pharmacy: [id number], 160.02, cm, 07/14/19 10:19:00 EDT, Height/Length Measured, [...] with SYMONE OLVERA, ANNITA Schofield When: Where: [address] [place], [place] [id number]- Medications What How Much When Instructions Unchanged [...] including vitamins, herbs, eye drops, creams, and ridn-hse-uymyqqy medicines. ??? Any problems you or family [...] your provider tells you to. ? Taking xsjw-mfg-zrpfjvj medicines, vitamins, herbs, and supplements. Tests ??? [...] any produc (more content not included)... Normal [facility] Provider Letteron 03-24-2024 Provider Letter Provider Letter March 24, 2024 CHANCE JACOBS [address] [place] [address] : 1985 To Whom It May Concern, Please excuse above patient from work. Date of Illness: From: 03/24/24 To: 04/02/24 May Return to Work On:04/03/24 Restrictions: No work 03/24/24- 04/02/24 Comments: Patient is having surgery 03/30/[address] Valente. She will be off work 03/24/24- 04/02/24. Sincerely, [facility] Dr. Deangelo Valente Normal [facility] MRI LSPINE WO CONon 04-23-19 MRI [...] by: CARLI RODRIGUEZ Date: 2022-04-22 16:27 Normal [facility] CT ABD/PELVIS WO CONon 04-20 CT ABD/PELVIS [...] by: VERITO ESPOSITO Date: 2022-04-20 09:15 Normal [facility] XR LSPINE MIN 4 VIEWSon 03-19 XR [...] by: CARLI RODRIGUEZ Date: 2022-04-09 18:35 Normal [facility] MRI ANKLE RT WO CONon 2022 MRI [...] TORITO JOSHI Date: 2022-03-09 17:09 Normal [facility] XR FOOT ROXANA MIN 3 VIEWSon XR [...] VERITO ESPOSITO Date: 2022-03-04 16:29 Normal [facility] Covid-19 PCR (CVDTB)on SARS-CoV-2 (COVID-19) RNA CHICO+probe Ql (Unsp spec) Detected Critically abnormal NOT DETECTED [facility] Comment on above: Result Comment: This test is not yet julian roved or cleared by the [place] FDA. When there are no FDA-approved or cleared tests available, and other criteria are met, FDA can make tests available under an emergency access mechanism called an Emergency Use Authorization (EUA). The EUA for this test is supported by the [employer] Grinder of Health and Human Service's (HHS's) declaration [...] used). Performed By: #### C VDTB #### [facility] [address] [address] [address] Rozina De La Cruz HCG,Urineon 10-29-2020 Beta HCG ( test) Ql (U) Negative Normal [facility] Comment on above: Result Comment: PERFORMED BY: [facility] [address] [place] [address] PATHOLOGIST GRAPHIC DESIGN TEACHER GEMMA AVALOS M.D. Performed By: #### U HCG #### [facility] [address] 10-29-2020 L - -------- Specimen: [id number] Received: 10/29/20 Status: DIEGO Garsia Num: [id number] Spec Type: Surgical Subm Dr: Alfredo Mckeon MD Tissues: A Duodenum - Biopsy (DUODENAL BX) B Colon Biopsy (SURVEILLANCE BX) Procedures: HE Stain/4, Gross/Micro L4/2 -------- Patient Age/Sex Location Account Attending Physician -------- Chance Khalil 35/F [id number] Alfredo Mckeon MD -------- SPEC NUM: [id number] RECD: 10/29/20 STATUS: DIEGO GARSIA NUM: [id number] LUCIO: 10/29/20 DR: Alfredo Mckeon MD ENTERED: 10/29/20 [facility] DR: RUBY TYPE: Surgical DEPT: S ORDERED: [...] one cassette labeled B1. (Rabia) -------- Specimen: [id number] Received: 10/29/20 Status: ARMANICarlos Garsia Num: [id number] Spec Type: Surgical Subm Dr: Alfredo Mckeon MD Tissues: A Duodenum - Biopsy (DUODENAL BX) B Colon Biopsy (SURVEILLANCE BX) Procedures: HE Stain/4, Gross/Micro L4/2 -------- Patient: Chance Khalil [id number] (Continued) -------- Specimen: Received: 10/29/20 (Continued) Signed (signature on file) Luke Andres MD 10/30/20 1448 -------- Specimen: [id number] Received: 10/29/20 Status: ARMANICarlos Req Num: [id number] Spec Type: Surgical Subm Dr: Alfredo Mckeon MD Tissues: A Duodenum - Biopsy (DUODENAL BX) B Colon Biopsy (SURVEILLANCE BX) Procedures: HE Stain/4, Gross/Micro L4/2 -------- Patient: Chance Khalil [id number] (Continued) -------- Specimen: [id number] Received: 10/29/20 (Continued) Microscopic Description A. Two H E stained slides reviewed. Microscopic examination is performed. B. Two H E stained slides reviewed. Microscopic examination is performed. CPT Codes 22219 x 2 -------- -------- Specimen: [id number] Received: 10/29/20 Status: DIEGO Garsia Num: [id number] Spec Type: Surgical Subm Dr: Alfredo Mckeon MD Tissues: A Duodenum - Biopsy (DUODENAL BX) B Colon Biopsy (SURVEILLANCE BX) Procedures: HE Stain/4, Gross/Micro L4/2 -------- Patient: Chance Khalil [id number] (Continued) -------- Signed (signature on file) Luke Andres MD 10/30/20 1448 Normal [facility]19 [facility] SARS-CoV-2 (COVID-19) RNA CHICO+probe Ql (Unsp spec) Negative Normal Negative [facility] Comment on above: Order Comment: Healthcare Worker?: N Result Comment: Testing for SARS-CoV-2 by RT-PCR This test was developed and its performance characteristics determined by [employer]) and validated at the [facility]. This test has not been FDA cleared [...] is terminated or revoked sooner. PERFORMED BY: [place] [address] PATHOLOGIST GRAPHIC DESIGN TEACHER GEMMA AVALOS M.D. Performed By: #### C OVID 19 [facility] #### [facility] [address] [id number] [facility] Vital Signs Date Time Vital Sign Value Performing Clinician Facility 03-24-2024 09:13-0500 Blood Pressure Location Deangelo VALENTE [facility] 03-24-2024 09:13-0500 Diastolic blood pressure 89 mm[Hg] Deangelo VALENTE [facility] 03-24-2024 09:13-0500 Heart rate 94 /min Deangelo VALENTE [facility] 03-24-2024 09:13-0500 Respiratory rate 18 /min Deangelo VALENTE [facility] 03-24-2024 09:13-0500 Systolic blood pressure 139 mm[Hg] Deangelo VALENTE [facility] 12-10-2020 15:45-0400 Body height 160.02 cm Alfredo Mckeon Other [facility] Other 12-10-2020 15:45-0400 Body mass index (BMI) [Ratio] 26.21 kg/m2 Alfredo Mckeon Other [facility] Other 12-10-2020 15:45-0400 Body weight 67.13 kg Alfredo Mckeon Other [facility] Other Encounters Encounter Date Encounter Type Care Provider Facility Start: 03-30-2024 ambulatory ALEJANDRA DELONG Facility:C D:[id number] Start: 03-24-2024 End: 03-24-2024 ambulatory Deangelo VALENTE Facility:[facility] Start: 03-24-2024 End: 03-24-2024 Patient encounter procedure Deangelo VALENTE [facility] Start: 07-14-2023 End: 07-14-2023 ambulatory PAOLO PRINCE Not Available Start: 06-17-2023 End: 06-17-2023 ambulatory CASSIA DEMPSEY Not Available Start: 06-16-2023 End: 06-16-2023 ambulatory CHRISTKEYSHAWNER ROSELYN Not Available Start: 06-07-2023 End: 06-07-2023 ambulatory CHRISTOPHER ROSELYN Not Available Start: 03-10-2023 End: 03-10-2023 ambulatory [place] Start: 05-07-2022 End: 05-08-2022 ambulatory NARENDRANATH LAKSHMIPATHY [...] per 15 mg Alfredo Dada Chary Other [facility] Other Payers Date Payer Category Payer Unknown [id number] 1985 Unknown [id number] 2.16.84 [id number] 1985 Unknown [id number] 2.16.84 [id number] 1985 Unknown [id number] 2.16.84 0.1.997350.3.579.2.593 1985 Unknown [id number] 2.16.84 0.1.948984.3.579.2.593 1985 Unknown [id number] 2.16.84 0.1.900174.3.579.2.593 1985 Unknown [id number] 2.16.84 0.1.588970.3.579.2.593 1985 Unknown [id number] 2.16.84 0.1.562756.3.579.2.593 1985 Unknown [id number] 2.16.84 0.1.942951.3.579.2.593 1985 Unknown [id number] 2.16.84 0.1.539282.3.579.2.1259 1985 Unknown [id number] 2.16.84 0.1.602152.3.579.2.1259 1985 Unknown [id number] 2.16.84 0.1.996932.3.579.2.1259 1986 Unknown [id number] 2.16.84 0.1.890987.3.579.2.1259 1985 Unknown [id number] 2.16.8 [id number] 1958 [facility] [id number] Social History Date Type Detail Facility Unknown if ever smoked [facility] Other Sex Assigned At [facility] Start: 03-24-2024 Tobacco smoking status Never s moked tobacco (finding) [facility] Functional Status Date Assessment Result Facility 03-24-2024 Functional Status N/A [facility] Discharge instructions 03-24-2024 Note Date & [...] including vitamins, herbs, eye drops, creams, and epqu-zet-hjaatlv medicines. Any problems you or family members [...] unless your provider tells you to. ?Taking ymud-gfb-ainlosp medicines, vitamins, herbs, and supplements. Tests You [...] provider. Document Revised: 10/02/2022 Document Reviewed: 10/02/2022 [employer] Patient Education 2023 Oration. Follow Up Care 03/22/2024 15:40:31 With:SYMONE OLVERA, Deangelo Funes, URL Address: [address] [place] [address]- When: Unknown [facility] Clinical Note 03-24-2024 Note Date & [...] given Flomax and Toradol. ZOHAIB completed at [facility] on 03/23/24. - are faxing over [...] Contact Information SYMONE OLVERA, Deangelo Funes, L [address] [place] [address]- Additional Instructions: Schedule L laser litho Patient [...] of tonsillectomy. Medicat (more content not included)... [facility] Comment on above: Result Comment: Elec [...] including vitamins, herbs, eye drops, creams, and ncea-ouf-zfuccvu medicines. ??? Any problems you or family [...] your provider tells you to. ? Taking tvny-vrp-ipgvuvq medicines, vitamins, herbs, and supplements. Tests ??? [...] This helps yo (more content not included)... [facility] Consultation note 05-07-2022 Note Date & [...] plan. Her Oswestry scale was 10. [facility] Consultation note 04-09-2022 Note Date & Type [...] after she undergoes her imaging studies. [facility] Evaluation note 12-10-2020 Note Date & Type Note Facility 10-26-2021 Evaluation note Encounter Date Diagnosis Assessment Notes Nov, Abdominal pain (ICD-10 - R10.9) Nov, Nausea and vomiting (ICD-10 - R11.2) Nov, Diarrhea (ICD-10 - R19.7) PT GIVEN COPY OF LOW FODMAP DIET RTO 6 WEEKS Nov, Hiatal hernia (ICD-10 - K44.9) [facility] Other Evaluation + Plan note Note Date & Type Note Facility Evaluation + Plan note No data available for this section [facility] History general Narrative - Reported Note Date & Type Note Facility History general Narrative - Reported Type Medical History anxiety Medical History asthma Surgical History cholecystectomy 2007 Surgical History oral surgery Surgical History appendectomy 2005 Surgical History KIDNEY SCRAPPED OUT Hospitalization History see above health history [facility] Other Progress note Note Date & Type Note Facility Progress note No data available for this section [facility] Summary Purpose Family History No Family History [...] section and content) DATE CREATED AUTHOR 03/10/[address] [facility] DATE CREATED AUTHOR AUTHOR'S ORGANIZ ATION 05/10/2022 [facility] DATE CREATED AUTHOR AUTHOR'S ORGANIZ ATION 03/12/2023 [place] DATE CREATED AUTHOR AUTHOR'S ORGANIZ ATION 07/15/2023 [facility] EPIC DATE CREATED AUTHOR AUTHOR'S ORGANIZ ATION 03/25/2024 [facility] REASON FOR VISIT (unrecogniz ed section and content) colonoscopy follow up on 10-16 for Abdominal pain, nausea, vomiting and diarrhea. Patient Care team informatio n (unrecognized section and content) Personnel Name: ALEJANDRA DELONG Address: Address: [address] [place] [phone] FOR RECORDS PERTAINING TO PATIENTS WHO ARE [...] BE BASED ON THE PRIMARY CLINICAL RECORDS. [facility] [employer] [facility]. provides no warranty or guarantee of the accuracy or completeness of information in this document.
[2024-03-27 13:25] LABS: INR 0.99; Partial Thromboplastin Time 29.4 sec (22.3-36.2); Prothrombin Time 10.5 sec (9.0-11.6)
== END 2024-03-27 12:29 | disposition home or self-care (01) ==
PROVIDERS: PCP Nurse Practitioner; Visit Provider Urology
DX: Z01.812 Encounter for preprocedural laboratory examination (principal); N20.0 Calculus of kidney
CPT/HCPCS: 80048; 85610; 85730

== ENCOUNTER 2024-03-30 09:12 | Day surgery (SDC) | payer OTHER, SELFPAY ==
[2024-03-27 13:05] VITALS: BP 112/77; PULSE 128; TEMP 36.6; O2SAT 98; BMI 28.4
[2024-03-30] VITALS (11 sets, daily range): BP systolic 127–148; BP diastolic 88–104; PULSE 72–102; TEMP 36.2–36.8; O2SAT 96–98; BMI 28.4
--- NOTE | 2024-03-30 | FL_ITS ---
[address] [address] Patient Name: CHANCE ABREU MRN: [id number] date: 1985 Sex: F Assigned Patient Location: SURGOUT Current Patient Location: Accession/Order Number: [id number] Exam Date: 03/30/2024 11:25 Report Date: 03/31/2024 08:19 At the request of: MADONNA ASHBY Procedure: FL fluoroscopy <1hr NON-READ EXAM: FL fluoroscopy <1hr NON-READ HISTORY: TECHNIQUE: FINDINGS: Please see Operative Report. Electronically authenticated by: RADIOLOGIST NO Date: 03/31/2024 08:19
--- OUTSIDE RECORDS SUMMARY | 2024-03-30 09:20 | XMS_ITS | CCD ---
Author Organization [facility] Care Team Providers Care Field Ring Assembler Name Role Phone Alfredo Mckeon Unavailable [phone] HOUSE, DR PERES Admitting Unavailable HOUSE, DR PERES Attending Unavailable NUNDA, DR PERES Primary Care Unavailable PETRIFIED FOREST NATL PK, DR VERITO iLm Consulting Unavailable HOUSE, DR PERES Consulting Unavailable LAKSHMIPATHY ., NARENDRANATH Admitting Yue vailable LAKSHMIPATHY ., NARENDRANBARBARA Attending Yue vailable NUNDA, DR PERES Primary Care Unavailable PAYALEBHOLDEN, DR CARLI Funes Consulting Unavailable LAKSHMIPATHY ., CAROLINAENDRANBARBARA Consulting Yue vailable HOUSE, DR PERES Admitting Unavailable HOUSE, DR PERES Attending Unavailable HOUSE, DR PERES Primary Care Unavailable NUNDA, DR PERES Consulting Unavailable HIGHLANDER, KELLY Yi Admitting Unavailable HIGHLANDER, KELLY Yi Attending Unavailable HOUSE, DR PERES Primary Care Unavailable [employer] NATL PK, DR VERITO Lim Consulting Unavailable HIGHLANDER, KELLY [...] Attending Unavailable ALEJANDRA DELONG Primary Care Physician [phone] Allergies Allergy Classification Reported Allergen(s) Allergy Type Date of Onset Reaction(s) Facility (2 sources) lamoTRIgine; Translations: [lamotrigine] Drug Allergy rash, Eruption of skin (disorder) [facility] (2 sources) lamoTRIgine; Translations: [LaMICtal] Drug Allergy [facility] Repository (2 sources) pork allergenic extract; Translations: [Pork] Drug Allergy Unknown (qualifier value) [facility] Repository Medications Current Medications Medication Drug Class(es) Dates Sig (Normalized) Sig (Original) [id number] 200 actuat albuterol 0.09 mg/actuat metered dose [...] mg extended release oral tablet (1 source) [place] Carbonate ER 300 MG Orally Twice a day Active tamsulosin hydrochloride 0.4 mg oral capsule (1 source) alpha-Adrenergic Rafaela Start: 07-14-2019 take 1 capsule by mouth twice daily Flomax 0.4 mg Cap 0.4 mg = 1 cap(s), Oral, BID, # 60 cap(s), Refills(s) 1, Pharmacy: [id number], 160.02, cm, 07/14/19 10:19:00 EDT, Height/Length Measured, [...] with SYMONE OLVERA, ANNITA Schofield When: Where: [address] [place], [place] [id number]- Medications What How Much When Instructions Unchanged [...] including vitamins, herbs, eye drops, creams, and dgfy-zkm-cjbzdal medicines. ??? Any problems you or family [...] your provider tells you to. ? Taking xfhb-lww-zzgjlim medicines, vitamins, herbs, and supplements. Tests ??? [...] any produc (more content not included)... Normal [facility] Provider Letteron 03-24-2024 Provider Letter Provider Letter March 24, 2024 CHANCE JACOBS [address] [place] [address] : 1985 To Whom It May Concern, Please excuse above patient from work. Date of Illness: From: 03/24/24 To: 04/02/24 May Return to Work On:04/03/24 Restrictions: No work 03/24/24- 04/02/24 Comments: Patient is having surgery 03/30/[address] Valente. She will be off work 03/24/24- 04/02/24. Sincerely, [facility] Dr. Deangelo Valente Normal [facility] MRI LSPINE WO CONon 04-23-19 MRI LSPINE [...] by: CARLI RODRIGUEZ Date: 2022-04-22 16:27 Normal [facility] CT ABD/PELVIS WO CONon 04-20 CT [...] by: VERITO ESPOSITO Date: 2022-04-20 09:15 Normal [facility] XR LSPINE MIN 4 VIEWSon 03-19 [...] by: CARLI RODRIGUEZ Date: 2022-04-09 18:35 Normal [facility] MRI ANKLE RT WO CONon 2022 [...] TORITO JOSHI Date: 2022-03-09 17:09 Normal [facility] XR FOOT ROXANA MIN 3 VIEWSon [...] VERITO ESPOSITO Date: 2022-03-04 16:29 Normal [facility] Covid-19 PCR (CVDTB)on SARS-CoV-2 (COVID-19) RNA CHICO+probe Ql (Unsp spec) Detected Critically abnormal NOT DETECTED [facility] Comment on above: Result Comment: This test is not yet julian roved or cleared by the [place] FDA. When there are no FDA-approved or cleared tests available, and other criteria are met, FDA can make tests available under an emergency access mechanism called an Emergency Use Authorization (EUA). The EUA for this test is supported by the Learning Development Specialist of Health and Human Service's (HHS's) declaration [...] used). Performed By: #### C VDTB #### [facility] [address] [address] [address] Rozina De La Cruz HCG,Urineon 10-29-2020 Beta HCG ( test) Ql (U) Negative Normal [facility] Comment on above: Result Comment: PERFORMED BY: [facility] [address] [place] [address] JUDGE GEMMA AVALOS M.D. Performed By: #### U HCG #### [facility] [address] 10-29-2020 L - -------- Specimen: [id number] Received: 10/29/20 Status: DIEGO Garsia Num: [id number] Spec Type: Surgical Subm Dr: Alfredo Mckeon MD Tissues: A Duodenum - Biopsy (DUODENAL BX) B Colon Biopsy (SURVEILLANCE BX) Procedures: HE Stain/4, Gross/Micro L4/2 -------- Patient Age/Sex Location Account Attending Physician -------- Chance Khalil 35/F [id number] Alfredo Mckeon MD -------- SPEC NUM: [id number] RECD: 10/29/20 STATUS: DIEGO GARSIA NUM: [id number] LUCIO: 10/29/20 DR: Alfredo Mckeon MD ENTERED: 10/29/20 [facility] DR: RUBY TYPE: Surgical DEPT: S ORDERED: [...] one cassette labeled B1. (Rabia) -------- Specimen: [id number] Received: 10/29/20 Status: ARMANICarlos Garsia Num: [id number] Spec Type: Surgical Subm Dr: Alfredo Mckeon MD Tissues: A Duodenum - Biopsy (DUODENAL BX) B Colon Biopsy (SURVEILLANCE BX) Procedures: HE Stain/4, Gross/Micro L4/2 -------- Patient: Chance Khalil [id number] (Continued) -------- Specimen: Received: 10/29/20 (Continued) Signed (signature on file) Luke Andres MD 10/30/20 1448 -------- Specimen: [id number] Received: 10/29/20 Status: ARMANICarlos Req Num: [id number] Spec Type: Surgical Subm Dr: Alfredo Mckeon MD Tissues: A Duodenum - Biopsy (DUODENAL BX) B Colon Biopsy (SURVEILLANCE BX) Procedures: HE Stain/4, Gross/Micro L4/2 -------- Patient: Chance Khalil [id number] (Continued) -------- Specimen: [id number] Received: 10/29/20 (Continued) Microscopic Description A. Two H E stained slides reviewed. Microscopic examination is performed. B. Two H E stained slides reviewed. Microscopic examination is performed. CPT Codes 85028 x 2 -------- -------- Specimen: [id number] Received: 10/29/20 Status: DIEGO Garsia Num: [id number] Spec Type: Surgical Subm Dr: Alfredo Mckeon MD Tissues: A Duodenum - Biopsy (DUODENAL BX) B Colon Biopsy (SURVEILLANCE BX) Procedures: HE Stain/4, Gross/Micro L4/2 -------- Patient: Chance Khalil [id number] (Continued) -------- Signed (signature on file) Luke Andres MD 10/30/20 1448 Normal [facility] SARS-CoV-2 (COVID-19) RNA CHICO+probe Ql (Unsp spec) Negative Normal Negative [facility] Comment on above: Order Comment: Healthcare Worker?: N Result Comment: Testing for SARS-CoV-2 by RT-PCR This test was developed and its performance characteristics determined by [employer], [employer]) and validated at the [facility]. This test has not been FDA [...] is terminated or revoked sooner. PERFORMED BY: [place] [address]GE GEMMA AVALOS M.D. Performed By: #### C OVID 19 [facility] #### [facility] [address] [id number] [facility] Vital Signs Date Time Vital Sign Value Performing Clinician Facility 03-24-2024 09:13-0500 Blood Pressure Location Deangelo VALENTE [facility] 03-24-2024 09:13-0500 Diastolic blood pressure 89 mm[Hg] Deangelo VALENTE [facility] 03-24-2024 09:13-0500 Heart rate 94 /min Deangelo VALENTE [facility] 03-24-2024 09:13-0500 Respiratory rate 18 /min Deangelo VALENTE [facility] 03-24-2024 09:13-0500 Systolic blood pressure 139 mm[Hg] Deangelo VALENTE [facility] 12-10-2020 15:45-0400 Body height 160.02 cm Alfredo Mckeon Other [facility] Other 12-10-2020 15:45-0400 Body mass index (BMI) [Ratio] 26.21 kg/m2 Alfredo Mckeon Other [facility] Other 12-10-2020 15:45-0400 Body weight 67.13 kg Alfredo Mckeon Other [facility] Other Encounters Encounter Date Encounter Type Care Provider Facility Start: 03-30-2024 ambulatory ALEJANDRA DELONG Facility:C D:[id number] Start: 03-24-2024 End: 03-24-2024 ambulatory Deangelo VALENTE Facility:[facility] Start: 03-24-2024 End: 03-24-2024 Patient encounter procedure Deangelo VALENTE [facility] Start: 07-14-2023 End: 07-14-2023 ambulatory PAOLO PRINCE Not Available Start: 06-17-2023 End: 06-17-2023 ambulatory CASSIA DEMPSEY Not Available Start: 06-16-2023 End: 06-16-2023 ambulatory CHRISTKEYSHAWNER ROSELYN Not Available Start: 06-07-2023 End: 06-07-2023 ambulatory CHRISTOPHER ROSELYN Not Available Start: 03-10-2023 End: 03-10-2023 ambulatory [place] Start: 05-07-2022 End: 05-08-2022 ambulatory NARENDRANATH LAKSHMIPATHY [...] per 15 mg Alfredo Dada Chary Other [facility] Other Payers Date Payer Category Payer Unknown [id number] 1985 Unknown [id number] 2.16.84 [id number] 1985 Unknown [id number] 2.16.84 [id number] 1985 Unknown [id number] 2.16.84 0.1.477367.3.579.2.593 1985 Unknown [id number] 2.16.84 0.1.499479.3.579.2.593 1986 Unknown [id number] 2.16.84 0.1.316202.3.579.2.593 1985 Unknown [id number] 2.16.84 0.1.248046.3.579.2.593 1986 Unknown [id number] 2.16.84 0.1.920001.3.579.2.593 1985 Unknown [id number] 2.16.84 0.1.134307.3.579.2.593 1985 Unknown [id number] 2.16.84 0.1.607901.3.579.2.1259 1986 Unknown [id number] 2.16.84 0.1.130327.3.579.2.1259 1986 Unknown [id number] 2.16.84 0.1.309226.3.579.2.1259 1986 Unknown [id number] 2.16.84 0.1.840136.3.579.2.1259 1986 Unknown [id number] 2.16.8 [id number] 1958 [facility] [id number] Social History Date Type Detail Facility Unknown if ever smoked [facility]) Other Sex Assigned At [facility] Start: 03-24-2024 Tobacco smoking status Never s moked tobacco (finding) [facility] Functional Status Date Assessment Result Facility 03-24-2024 Functional Status N/A [facility] Discharge instructions 03-24-2024 Note Date & [...] including vitamins, herbs, eye drops, creams, and gfnv-lbe-ngojrwc medicines. Any problems you or family members [...] unless your provider tells you to. ?Taking vnxx-kdg-dpbnjpv medicines, vitamins, herbs, and supplements. Tests You [...] provider. Document Revised: 10/02/2022 Document Reviewed: 10/02/2022 [email or web address] Patient Education 2023 [employer]. Follow Up Care 03/22/2024 15:40:31 With:SYMONE OLVERA, Deangelo Funes, URL Address: [address] [place] [address]- When: Unknown [facility] Clinical Note 03-24-2024 Note Date & [...] given Flomax and Toradol. ZOHAIB completed at [facility] on 03/23/24. - are faxing over [...] Contact Information SYMONE OLVERA, Deangelo Funes, L [address] [place] [address]- Additional Instructions: Schedule L laser litho Patient [...] of tonsillectomy. Medicat (more content not included)... [facility] Comment on above: Result Comment: Elec tronically [...] including vitamins, herbs, eye drops, creams, and xeqk-dgr-wibofqi medicines. ??? Any problems you or family [...] your provider tells you to. ? Taking uzlt-bqy-laaaacc medicines, vitamins, herbs, and supplements. Tests ??? [...] This helps yo (more content not included)... [facility] Consultation note 05-07-2022 Note Date & Type [...] plan. Her Oswestry scale was 10. [facility] Consultation note 04-09-2022 Note Date & [...] after she undergoes her imaging studies. [facility] Evaluation note 12-10-2020 Note Date & Type Note Facility 10-26-2021 Evaluation note Encounter Date Diagnosis Assessment Notes Nov, Abdominal pain (ICD-10 - R10.9) Nov, Nausea and vomiting (ICD-10 - R11.2) Nov, Diarrhea (ICD-10 - R19.7) PT GIVEN COPY OF LOW FODMAP DIET RTO 6 WEEKS Nov, Hiatal hernia (ICD-10 - K44.9) [facility] Other Evaluation + Plan note Note Date & Type Note Facility Evaluation + Plan note No data available for this section [facility] History general Narrative - Reported Note Date & Type Note Facility History general Narrative - Reported Type Medical History anxiety Medical History asthma Surgical History cholecystectomy 2007 Surgical History oral surgery Surgical History appendectomy 2005 Surgical History KIDNEY SCRAPPED OUT Hospitalization History see above health history [facility] Other Progress note Note Date & Type Note Facility Progress note No data available for this section [facility] Summary Purpose Family History No Family History [...] section and content) DATE CREATED AUTHOR 03/10/2021 [facility] DATE CREATED AUTHOR AUTHOR'S ORGANIZ ATION 05/10/2022 [facility] DATE CREATED AUTHOR AUTHOR'S ORGANIZ ATION 03/12/2023 [place] DATE CREATED AUTHOR AUTHOR'S ORGANIZ ATION 07/15/2023 [facility] EPIC DATE CREATED AUTHOR AUTHOR'S ORGANIZ ATION 03/25/2024 [facility] REASON FOR VISIT (unrecogniz ed section and content) colonoscopy follow up on 10-16 for Abdominal pain, nausea, vomiting and diarrhea. Patient Care team informatio n (unrecognized section and content) Personnel Name: ALEJANDRA DELONG Address: Address: [address] [place] [phone] FOR RECORDS PERTAINING TO PATIENTS WHO ARE [...] BE BASED ON THE PRIMARY CLINICAL RECORDS. [facility]. provides no warranty or guarantee of the accuracy or completeness of information in this document.
[2024-03-30 09:53] LABS: HCG Qualitative NEGATIVE (NEGATIVE); Internal Control Within Normal Limits
[2024-03-30] MEDS: LACTATED RINGER'S SOLUTION 1,000 ML 50 ML IV (10:11)
[2024-03-30] MEDS: CEFAZOLIN SODIUM 2 GM/50 ML D5W PREMIX IV (11:10)
--- NOTE | 2024-03-30 11:59 | PM.URSON ---
Urology Surgery Operative Note Operative Note Procedure Date: 03/30/24 Time Out Performed: yes Pre-op Diagnosis: Left nephrolithiasis Post-op Diagnosis: other (Same plus left distal ureteral stenosis) Procedures performed: 1. Cystoscopy. 2. Left ureteroscopy. 3. Left pyeloscopy. 4. Thulium laser lithotripsy of left renal calculi. 5. Placement of 6 Peruvian variable length left ureteral stent Anesthesia: PONCE Primary Surgeon: Deangelo Valente Complications: None Estimated blood loss (mL): 5 Findings: 1. Distal left ureteral stenosis. 2. Left renal calculi lower pole #3. Alex's plaques Specimens: None Drains: 6 Peruvian variable length left ureteral stent Indications for Procedures: This lady has left renal calculi. She has been having intermittent pain. She now presents for definitive ureteroscopic laser lithotripsy and left stent placement. She has signed an informed consent after risks were explained. Detailed description of Procedure: The patient was brought to the operating room and placed on the operating room table in the supine position. SCDs were placed on the lower extremities and turned on and functioning during the entire case. Timeout was done by all parties in the room. We all agreed upon the patient's identification and the planned procedures for this patient. Genn. anesthesia was then administered. The patient was then repositioned into the modified dorsal lithotomy position. All pressure points were satisfactorily padded. Genitalia were sterilely prepped and draped in usual fashion. I started by passing a 22 Peruvian Olympus cystoscope per urethra and into the bladder. Panendoscopy in the bladder revealed a flame red left ureteral orifice. There was diffuse inflammatory debris in the bladder. I passed a Glidewire through the scope and up the left ureter into the kidney. I then removed the scope and passed a 10/12 Peruvian ureteral access sheath over the wire and up the ureter. The ureter was rather stenosed and this maneuver was somewhat difficult. Once the sheath was at the L5 level the wire and stylette were then removed. I then passed a flexible ureteroscope through the access sheath and into the ureter. I ascended up the ureter and went into the kidney. I went into the upper mid and lower pole calyces. There were a few Alex's plaques in the upper pole. There were small stones within the midpole and a couple sizable stones in the lower pole. I started in the lower pole and used a 200 Angstrom laser fiber. Thulium laser lithotripsy was done at 7 W in the dusting mode. I was able to dust all of the stones in the lower pole. I then went into the midpole and similarly dusted all of the smaller stones present. Upon completion there was no evidence of stone remaining within the kidney. Minimal bleeding was encountered. No specimen was obtained. The scope was then removed. A wire was then passed back up the sheath into the kidney and the sheath was removed. Cystoscope was backloaded over the wire and passed into the bladder and a 6 Peruvian variable length left ureteral stent was then placed. The wire was removed and there were good curls in the kidney and in the bladder. The bladder was drained of its contents and the scope was then removed. She was then [facility] and wheeled to PACU in stable condition. She will be discharged to home later today with a prescription for Myrbetriq 50 mg daily #30 and doxycycline 100 mg twice daily #14. The stent will stay in for 3 to 4 weeks.
== END 2024-03-30 13:30 | disposition home or self-care (01) ==
PROVIDERS: PCP Nurse Practitioner; Visit Provider Urology
PROC: (CPT 918; principal; 2024-03-30 10:40)
DX: N20.0 Calculus of kidney (principal); Q62.10 Congenital occlusion of ureter, unspecified; Z87.442 Personal history of urinary calculi; Z90.49 Acquired absence of other specified parts of digestive tract; K21.9 Gastro-esophageal reflux disease without esophagitis
CPT/HCPCS: 52356; 36415; 76000; 84703; J0690; J1100; J1885; J2250; J2405; J2704; J3010

== ENCOUNTER 2024-05-09 13:37 | Emergency (ER) | payer OTHER, SELFPAY ==
[2024-05-09 13:44] VITALS: BP 154/100; PULSE 95; TEMP 36.8; O2SAT 99; BMI 28.3
[2024-05-09 14:07] LABS: Bilirubin Urine NEGATIVE (NEGATIVE); Blood Urine TRACE-I (NEGATIVE); Clarity Urine CLEAR (CLEAR); Color Urine LT. YELLOW (YELLOW); Glucose Urine UA NEGATIVE (NEGATIVE); Ketones Urine NEGATIVE (NEGATIVE); Leukocyte Esterase Urine NEGATIVE (NEGATIVE); Nitrite Urine NEGATIVE (NEGATIVE); Protein Urine NEGATIVE (NEG/TRACE); Urobilinogen Urine 0.2 EU/dL (0.2-1.0); pH Urine 6.5 (5.0-9.0)
[2024-05-09 14:09] LABS: HCG Qualitative Urine* NEGATIVE (NEGATIVE); Internal Control Within Normal Limits
[2024-05-09 14:23] LABS: Bacteria Urine TRACE #/HPF (NONE SEEN); Cast Seen? NONE SEEN #/LPF (NONE SEEN); Crystals Seen? None Seen #/HPF (None Seen); Mucus Urine NONE SEEN (NONE SEEN); RBC Urine 0-2 #/HPF (0-2); Squamous Epithelial Cell Urine FEW #/LPF (NONE/RARE); Urine Culture Indicated NO; WBC Urine NONE SEEN #/HPF (NONE SEEN)
--- NOTE | 2024-05-09 14:35 | ED_ITS ---
HPI HPI - General Adult General Chief complaint: Abdominal Pain Stated complaint: left side pain Time Seen by Provider: 05/09/24 13:38 Source: patient Mode of arrival: walk-in Limitations: no limitations History of Present Illness HPI narrative: Patient is a 39-year-old female who presents to the emergency department at the recommendation of her urologist office for evaluation of flank pain. Patient states she sees Dr. Valente for urology. She had a stent placed in the left ureter for ureteral narrowing, this was done 1 month ago and the stent was removed on 04/26/2024. Patient states that sludge was removed from the ureter at the time of stenting. She was told she had a kidney stone that was high up in the meat of the kidney that could not be reached. She states for the last several days she has had intermittent pain in the flanks. She denies urinary symptoms. She reports a temperature of 100.6 Fahrenheit yesterday. Motrin and Tylenol taken earlier this morning prior to arrival. She has no concern for . Related Data Previous Rx's ?Medication ?Instructions ?Recorded hydrocodone 5 mg-acetaminophen 325 1 tab PO Q6H PRN pain 5 days #20 03/27/24 mg tablet tabs ketorolac 10 mg tablet 10 mg PO TID PRN pain #10 tabs 05/09/24 methocarbamol 750 mg tablet 750 mg PO TID PRN pain #20 tabs 05/09/24 ondansetron 4 mg disintegrating 4 mg PO Q6H PRN nausea and 05/09/24 tablet vomiting #12 tabs Allergies Allergy/AdvReac Type Severity Reaction Status Date / Time lamotrigine (From Lamictal) Allergy Unknown Rash Verified 05/09/24 13:48 Pork/Porcine Containing Allergy Vomiting Verified 05/09/24 13:48 Products Opioid HPI Opioid Management Most Recent Opioid Data: Last Pain Scale 7 05/09/24 14:47 05/09/24 Last MAR Pain Assessment 05/09/24 14:47 Review of Systems ROS Constitutional Reports: fever; Denies: chills Ears, nose, mouth, and throat Denies: throat pain or nasal congestion Cardiovascular Denies: chest pain Respiratory Denies: shortness of breath or cough Gastrointestinal Reports: abdominal pain and nausea; Denies: vomiting or diarrhea Genitourinary Denies: painful urination Musculoskeletal Reports: back pain; Denies: neck pain Integumentary/Breast Denies: rash Neurological Denies: headache Hematologic/Lymphatic Denies: easy bruising or easy bleeding PFSH PFSH Medical History (Updated 05/09/24 @ 15:32 by JACQUE Perez) Depression ?F32.A - Depression, unspecified (ICD-10) Anxiety ?F41.9 - Anxiety disorder, unspecified (ICD-10) Asthma ?J45.909 - Unspecified asthma, uncomplicated (ICD-10) Migraine ?G43.909 - Migraine, unspecified, not intractable, without status migrainosus (ICD-10) Postoperative nausea and vomiting ?R11.2 - Nausea with vomiting, unspecified (ICD-10) ?Z98.890 - Other specified postprocedural states (ICD-10) Acid reflux ?K21.9 - Gastro-esophageal reflux disease without esophagitis (ICD-10) History of kidney stones ?Z87.442 - Personal history of urinary calculi (ICD-10) Surgical History (Updated 03/30/24 @ 09:47 by Radha Kelly) S/P ureteral stent placement ?Z96.0 - Presence of urogenital implants (ICD-10) History of nasal septoplasty ?Z98.890 - Other specified postprocedural states (ICD-10) History of colonoscopy ?Z98.890 - Other specified postprocedural states (ICD-10) History of tonsillectomy ?Z90.89 - Acquired absence of other organs (ICD-10) H/O ureteroscopy ?Z98.890 - Other specified postprocedural states (ICD-10) History of appendectomy ?Z90.49 - Acquired absence of other specified parts of digestive tract (ICD- 10) History of tonsillectomy and adenoidectomy ?Z90.89 - Acquired absence of other organs (ICD-10) Hx of LASIK ?Z98.890 - Other specified postprocedural states (ICD-10) History of laparoscopic cholecystectomy ?Z90.49 - Acquired absence of other specified parts of digestive tract (ICD- 10) Family History (Updated 03/27/24 @ 12:58 by Tonya Champion NP) Other Family history of cancer Family history of hypertension Social History Within the past year, how often did you have a drink containing alcohol: never Score interpretation: A score less than 3 is consistent with normal alcohol consumption. Smoking status: Never smoker Non-prescribed substance use: denies use Previous occupational history: [employer] Highest level of school completed/degree received: high school graduate Little interest or pleasure in doing things: not at all Feeling down, depressed, or hopeless: not at all Exam Narrative Exam Narrative: Gen.: Awake, alert, in no distress Head: Normocephalic, atraumatic ENT: Moist mucous membranes Respiratory: No respiratory distress Gastrointestinal: Abdomen is soft, nondistended and nontender to palpation, no CVA tenderness Extremities: Moves extremities equally Psych: Normal mood and affect Neuro: No focal neuro deficit Skin: Warm, dry, intact Constitutional Vital Signs, click to edit/add: Last Vital Signs Temp 98.3 F 05/09/24 13:44 Pulse 95 H 05/09/24 13:44 Resp 18 05/09/24 13:44 BP 154/100 H 05/09/24 13:44 Pulse Ox 99 05/09/24 14:38 O2 Del Method Room Air 05/09/24 14:38 Course Vital Signs Vital signs: Vital Signs Temperature 98.3 F 05/09/24 13:44 Pulse Rate 95 H 05/09/24 13:44 Respiratory Rate 18 05/09/24 13:44 Blood Pressure 154/100 H 05/09/24 13:44 Pulse Oximetry 99 05/09/24 13:44 Oxygen Delivery Method Room Air 05/09/24 13:44 Temperature 98.3 F 05/09/24 13:44 Pulse Rate 95 H 05/09/24 13:44 Respiratory Rate 18 05/09/24 13:44 Blood Pressure 154/100 H 05/09/24 13:44 Pulse Oximetry 99 05/09/24 14:38 Oxygen Delivery Method Room Air 05/09/24 14:38 Medical Decision Making MDM Narrative Medical decision making narrative: Patient was treated with IV fluids, Toradol and Zofran. She is hemodynamically stable in the ER. Lab studies and urine specimen are unremarkable and test is negative. CT of the abdomen and pelvis shows a renal calculus with no evidence of ureteral calculus or hydronephrosis. Patient was given education and reassurance. Toradol, Robaxin, Zofran given for home. Work note provided. Follow-up urology and return to the ER if symptoms change or worsen SUPERVISED APC VISIT, PHYSICIAN ATTESTATION: Based on the medical record the care appears appropriate. ? Medical Records Medical records reviewed: Yes I reviewed the patient's medical records Lab Data Lab results reviewed: Yes I reviewed the patient's lab results Labs: Lab Results 05/09/24 05/09/24 Range/Units 13:53 14:27 WBC 5.0 (4.0-11.0) 10^3/uL RBC 5.02 (4.20-5.40) 10^6/uL Hgb 14.2 (12.0-16.0) g/dL Hct 42.4 (36.0-48.0) % MCV 84.5 (81.0-99.0) fL MCH 28.3 (26.7-34.0) pg MCHC 33.5 (29.9-35.2) g/dL RDW 13.7 (11.0-15.0) % Plt Count 364 (150-450) 10^3/uL MPV 8.7 L (9.5-13.5) fL Neut % (Auto) 49.9 (43.0-75.0) % Lymph % (Auto) 39.2 (20.5-60.0) % Saline % (Auto) 8.9 (1.7-12.0) % Eos % (Auto) 1.4 (0.9-7.0) % Baso % (Auto) 0.4 (0.2-2.0) % Neut # (Auto) 2.5 (1.4-6.5) 10^3/uL Lymph # (Auto) 1.9 (1.2-3.8) 10^3/uL Saline # (Auto) 0.4 (0.3-0.8) 10^3/uL Eos # (Auto) 0.1 (0.0-0.7) 10^3/uL Baso # (Auto) 0.0 (0.0-0.1) 10^3/uL Abs Immat Gran (auto) 0.01 (0.00-0.03) 10^3/uL Imm/Tot Granulo (auto) 0.2 (0.0-0.5) % Sodium 138 (136-145) mmol/L Potassium 4.1 (3.5-5.1) mmol/L Chloride 105 (98-107) mmol/L Carbon Dioxide 23.7 (21.0-32.0) mmol/L Anion Gap 13.4 BUN 10.0 (7.0-18.0) mg/dL Creatinine 0.80 (0.55-1.02) mg/dL Est GFR ( Amer) >60 (>=60 mL/min/1.73m^2) Est GFR (Non-Af Amer) >60 (>=60 mL/min/1.73m^2) BUN/Creatinine Ratio 12.5 Glucose 107 H (74-106) mg/dL Lactate 0.9 (0.4-2.0) mmol/L Calcium 9.1 (8.5-10.1) mg/dL Total Bilirubin 0.2 (0.2-1.0) mg/dL AST 16 (15-37) U/L ALT 25 (14-59) U/L Alkaline Phosphatase 56 (46-116) U/L Total Protein 7.8 (6.4-8.2) g/dL Albumin 3.6 (3.4-5.0) g/dL Globulin 4.2 g/dL Albumin/Globulin Ratio 0.9 Urine Color Lt. yellow (YELLOW) Urine Clarity Clear (CLEAR) Urine pH 6.5 (5.0-9.0) Ur Specific [place] 1.010 (1.005-1.025) Urine Protein Negative (NEG/TRACE) mg/dL Urine Glucose (UA) Negative (NEGATIVE) mg/dL Urine Ketones Negative (NEGATIVE) mg/dL Urine Occult Blood Trace-i (NEGATIVE) Urine Nitrite Negative (NEGATIVE) Urine Bilirubin Negative (NEGATIVE) Urine Urobilinogen 0.2 (0.2-1.0) EU/dL Ur Leukocyte Esterase Negative (NEGATIVE) Urine RBC 0-2 (0-2) #/HPF Urine WBC None seen (NONE SEEN) #/HPF Ur Squamous Epith Cells Few A (NONE/RARE) #/LPF Urine Crystals None seen (None Seen) #/HPF Urine Bacteria Trace A (NONE SEEN) #/HPF Urine Casts None seen (NONE SEEN) #/LPF Urine Mucus None seen (NONE SEEN) Ur Culture Indicated? No Urine HCG, Qual Negative (NEGATIVE) Imaging Data CT scan - abdomen: Attestation: I have reviewed the pertinent imaging results. Discharge Plan Discharge Chief Complaint: Abdominal Pain Clinical Impression: Left flank pain Patient Disposition: Home, Self-Care Time of Disposition Decision: 15:31 Condition: Good Prescriptions / Home Meds: New ketorolac 10 mg tablet 10 mg PO TID PRN (Reason: pain) Qty: 10 0RF methocarbamol 750 mg tablet 750 mg PO TID PRN (Reason: pain) Qty: 20 0RF ondansetron 4 mg tablet,disintegrating 4 mg PO Q6H PRN (Reason: nausea and vomiting) Qty: 12 0RF No Action hydrocodone-acetaminophen 5-325 mg tablet 1 tab PO Q6H PRN (Reason: pain) 5 Days Qty: 20 0RF Print Language: Citizen Of [place] Instructions: Flank Pain (ED) Referrals: Ilana Carmona [employer] [Primary Care Provider] - 1 week
[2024-05-09 14:36] LABS: Basophils Percent Auto 0.4 % (0.2-2.0); Eosinophils Absolute Auto 0.1 10^3/uL (0.0-0.7); Eosinophils Percent Auto 1.4 % (0.9-7.0); Hematocrit 42.4 % (36.0-48.0); Hemoglobin 14.2 g/dL (12.0-16.0); Immature Granulocytes Abs Auto 0.01 10^3/uL (0.00-0.03); Immature Granulocytes Pct Auto 0.2 % (0.0-0.5); Lymphocytes Absolute Auto 1.9 10^3/uL (1.2-3.8); Lymphocytes Percent Auto 39.2 % (20.5-60.0); Mean Corpuscular HGB Conc 33.5 g/dL (29.9-35.2); Mean Corpuscular Hemoglobin 28.3 pg (26.7-34.0); Mean Corpuscular Volume 84.5 fL (81.0-99.0); Mean Platelet Volume 8.7 fL (9.5-13.5); Monocytes Absolute Auto 0.4 10^3/uL (0.3-0.8); Monocytes Percent Auto 8.9 % (1.7-12.0); Neutrophils Absolute Auto 2.5 10^3/uL (1.4-6.5); Neutrophils Percent Auto 49.9 % (43.0-75.0); Platelet Count 364 10^3/uL (150-450); Red Blood Count 5.02 10^6/uL (4.20-5.40); Red Cell Distribution Width 13.7 % (11.0-15.0)
[2024-05-09 14:38] VITALS: O2SAT 99
[2024-05-09] MEDS: ONDANSETRON PF 4 MG/2 ML VIAL IV (14:47)
[2024-05-09] MEDS: KETOROLAC TROMETHAMINE 30 MG/ML VIAL IVP (14:47)
[2024-05-09] MEDS: 0.9 % SODIUM CHLORIDE 1,000 ML 1000 ML IV (14:48)
[2024-05-09 14:53] LABS: Lactate/Lactic Acid 0.9 mmol/L (0.4-2.0)
[2024-05-09 15:00] LABS: Alanine Aminotransferase 25 U/L (14-59); Albumin Globulin Ratio 0.9; Albumin Level 3.6 g/dL (3.4-5.0); Alkaline Phosphatase 56 U/L (46-116); Anion Gap 13.4; Aspartate Amino Transferase 16 U/L (15-37); BUN Creatinine Ratio 12.5; Bilirubin Total 0.2 mg/dL (0.2-1.0); Calcium 9.1 mg/dL (8.5-10.1); Carbon Dioxide 23.7 mmol/L (21.0-32.0); Chloride 105 mmol/L (98-107); Estimated GFR (African America >60 (>=60 mL/min/1.73m^2); Estimated GFR (Non-African Ame >60 (>=60 mL/min/1.73m^2); Globulin 4.2 g/dL; Glucose 107 mg/dL (74-106); Potassium 4.1 mmol/L (3.5-5.1); Sodium 138 mmol/L (136-145); Total Protein 7.8 g/dL (6.4-8.2)
[2024-05-09 15:40] VITALS: BP 132/71; PULSE 86; O2SAT 98
== END 2024-05-09 15:41 | disposition home or self-care (01) ==
PROVIDERS: Physician Assistant; Emergency Provider Emergency Medicine; PCP Nurse Practitioner
DX: R10.9 Unspecified abdominal pain (principal); N20.0 Calculus of kidney; Z87.442 Personal history of urinary calculi; Z90.49 Acquired absence of other specified parts of digestive tract
CPT/HCPCS: 36415; 74176; 80053; 81001; 83605; 84703; 85025; 96374; 96375; 99285; J1885; J2405

== ENCOUNTER 2024-05-18 10:28 | Outpatient (OUT) | payer OTHER, SELFPAY ==
[2024-05-18 10:49] LABS: Basophils Percent Auto 0.5 % (0.2-2.0); Eosinophils Absolute Auto 0.1 10^3/uL (0.0-0.7); Eosinophils Percent Auto 1.9 % (0.9-7.0); Hematocrit 43.1 % (36.0-48.0); Hemoglobin 14.4 g/dL (12.0-16.0); Immature Granulocytes Abs Auto 0.01 10^3/uL (0.00-0.03); Immature Granulocytes Pct Auto 0.2 % (0.0-0.5); Lymphocytes Absolute Auto 2.1 10^3/uL (1.2-3.8); Lymphocytes Percent Auto 34.8 % (20.5-60.0); Mean Corpuscular HGB Conc 33.4 g/dL (29.9-35.2); Mean Corpuscular Hemoglobin 28.4 pg (26.7-34.0); Mean Platelet Volume 8.5 fL (9.5-13.5); Monocytes Absolute Auto 0.5 10^3/uL (0.3-0.8); Neutrophils Absolute Auto 3.2 10^3/uL (1.4-6.5); Neutrophils Percent Auto 54.6 % (43.0-75.0); Platelet Count 368 10^3/uL (150-450); Red Blood Count 5.07 10^6/uL (4.20-5.40); Red Cell Distribution Width 13.5 % (11.0-15.0); White Blood Count 5.9 10^3/uL (4.0-11.0)
[2024-05-18 11:27] LABS: Alanine Aminotransferase 21 U/L (14-59); Albumin Globulin Ratio 0.9; Albumin Level 3.6 g/dL (3.4-5.0); Alkaline Phosphatase 70 U/L (46-116); Anion Gap 13.4; Aspartate Amino Transferase 16 U/L (15-37); BUN Creatinine Ratio 15.3; Bilirubin Total 0.3 mg/dL (0.2-1.0); Calcium 8.9 mg/dL (8.5-10.1); Carbon Dioxide 25.8 mmol/L (21.0-32.0); Chloride 106 mmol/L (98-107); Chol HDL Ratio 2.7; Cholesterol 192 mg/dL (<=200); Estimated GFR (African America >60 (>=60 mL/min/1.73m^2); Estimated GFR (Non-African Ame >60 (>=60 mL/min/1.73m^2); Globulin 4.1 g/dL; Glucose 81 mg/dL (74-106); HDL Cholesterol 72 mg/dL (40-60); Potassium 4.2 mmol/L (3.5-5.1); Sodium 141 mmol/L (136-145); TSH W/ REFLEX FT4 0.851 uIU/mL (0.358-3.740); Total Protein 7.7 g/dL (6.4-8.2); Triglycerides 42 mg/dL (<=150); VLDL CHOLESTEROL 8.4 mg/dL
== END 2024-05-18 10:29 | disposition home or self-care (01) ==
LOC: LAB 10:29
PROVIDERS: PCP Nurse Practitioner; Visit Provider Nurse Practitioner
DX: Z00.00 Encounter for general adult medical examination without abnormal findings (principal); Z13.6 Encounter for screening for cardiovascular disorders; Z13.29 Encounter for screening for other suspected endocrine disorder
CPT/HCPCS: 36415; 80053; 80061; 84443; 85025

== ENCOUNTER 2024-05-23 09:35 | Outpatient (OUT) | payer OTHER, SELFPAY ==
--- OUTSIDE RECORDS SUMMARY | 2024-05-23 10:00 | XMS_ITS | CCD ---
Author Organization [facility] Care Team Providers Care Apprentice Technician Name Role Phone Alfredo Mckeon Unavailable HOUSE, DR PERES Admitting Unavailable COFFEEVILLE, DR PERES Attending Unavailable COFFEEVILLE, DR PERES Primary Care Unavailable AVA, DR VERITO Lim Consulting Unavailable HOUSE, DR PERES Consulting Unavailable LAKSHMIPATHY ., NARENDRANATH Admitting Yue vailable LAKSHMIPATHY ., DIMA Attending Yue vailable HOUSE, DR PERES Primary Care Unavailable PAYALHOLDEN, DR CARLI Funes Consulting Unavailable LAKSHMIPATHY ., KIMRANBARBARA Consulting Yue vailable HOUSE, DR PERES Admitting Unavailable HOUSE, DR PERES Attending Unavailable HOUSE, DR PERES Primary Care Unavailable COFFEEVILLE, DR PERES Consulting Unavailable HIGHLANDER, KELLY Yi Admitting Unavailable HIGHLANDER, KELLY Yi Attending Unavailable HOUSE, DR PERES Primary Care Unavailable AVA, DR VERITO Lim Consulting Unavailable HIGHLANDER, KELLY [...] DR PERES Primary Care Unavailable LAKSHMIPATHY ., CAROLINAENDJACOBATH Consulting Yue vailable LAKSHMIPATHY ., NARENDJACOBATH Admitting Yue vailable LAKSHMIPATHY ., DIMA Attending Yue vailable ROCCO, DR PERES Primary Care Unavailable DR CARLI RODRIGUEZ Consulting Unavailable LAKSHMIPATHY ., DIMA Consulting Yue parisble CASSIA DEMPSEY Attending Unavailable CASSIA DEMPSEY Attending Unavailable CASSIA DEMPSEY Attending Unavailable PAOLO PRINCE Attending Unavailable [facility] [phone] Pedro Parks DO Emergency Provider [phone] [facility] Primary [facility] Provider Pedro Parks Attending Unavailable Pedro Parks Admitting Unavailable Sindi, [place] Primary Care Unavailable Deangelo VALNETE Attending Unavailable SINDI, [place] Primary Care Unavailable VALENTE, Deangelo Funes Attending Unavailable SINDI, [place] Primary Care Unavailable Deangelo VALENTE Attending Unavailable SINDI, [place] Primary Care Unavailable Deangelo VALENTE Attending Unavailable SINDI, [place] Primary Care Unavailable Richard Valiente DO Primary Care Provider Allergies Allergy Classification Reported Allergen(s) Allergy Type Date of Onset Reaction(s) Facility (6 sources) lamoTRIgine; Translations: [lamotrigine] Drug Allergy 1 rash, Eruption of skin (disorder) [facility] (2 sources) lamoTRIgine; Translations: [LaMICtal] Drug Allergy 0 [facility] Repository (2 sources) pork allergenic extract; Translations: [Pork] Drug Allergy Unknown (qualifier value) [facility] (1 source) lamoTRIgine Drug Allergy 5 [facility] Repository Medications Current Medications Medication Drug Class(es) Dates Sig (Normalized) Sig (Original) acetaminophen 325 mg / HYDROcodone bitartrate 5 mg oral tablet (1 source) Opioid Agonist Start: 04-05-2024 take 1 tablet by mouth every six hours as needed for pain Hydrocodone-Aceta minophen 5-325 mg tablet Active 1 TAB PO Every 6 hours as needed for pain April 05, 2024 12:00am acetaminophen 325 mg / oxyCODONE hydrochloride 5 mg oral tablet (1 source) Opioid Agonist Start: 04-05-2024 take 1 tablet by mouth every four to six hours as needed for pain Oxycodone-Acetami nophen (Percocet) 5-325 mg tablet Active 1 TAB PO EVERY 4-6 HOURS as needed for pain 10 3 April 05, 2024 [id number] 200 actuat albuterol 0.09 mg/actuat metered dose inhaler (6 sources) beta2-Adrenergic Agonist Start: 05-07-2020 take 2 puff(s) by inhalation every four hours as needed Albuterol Sulfate HFA 108 (90 Base) MCG/ACT 2 puffs as needed Inhalation every 4 hrs PRN Apr, Active Start: 07-14-2019 albuterol Refi lls(s) 0 Start Date: 07/14/19 Status: Ordered take 2 puff(s) by in halation every six hours as needed for wheezing albuterol (PROVENTIL HFA;VENTOLIN HFA) 90 mcg/actuation inhaler Inhale 2 puffs every 6 (six) hours as needed for wheezing. Active azelastine hydrochloride 0.137 mg/actuat metered dose nasal spray (4 sources) Histamine-1 Receptor Antagonist Start: 11-19-2021 take 2 spray(s) nasal route in the morning azelastine (ASTELIN) 137 mcg (0.1 %) nasal spray Indications: Allergic rhinitis, unspecified seasonality, unspecified trigger Administer 2 sprays into each nostril in the morning and 2 sprays before bedtime. Use in each nostril as directed. 30 mL 5 11/19/2021 Active cephalexin 500 mg oral capsule (1 source) Cephalosporin Antibacterial Start: 04-05-2024 take 1 capsule by mouth every six hours Cephalexin 500 mg capsule Active 500 MG PO Q6H 28 7 April 05, 2024 12:00am colestipol hydrochloride 1000 mg oral tablet (1 source) Bile Acid Sequestrant Start: 12-10-2020 take 2 tablets by mouth every twenty-four hours Colestipol HCl 1 GM 2 tablets Orally Once a day for 30 day(s) Nov, Active doxycycline hyclate 100 mg oral tablet (1 source) Tetracycline-class Drug Start: 04-05-2024 take 1 tablet by mouth twice daily Doxycycline Hyclate 100 mg tablet Active 100 MG PO Twice daily April 05, 2024 12:00am fexofenadine hydrochloride 180 mg oral tablet (4 sources) Histamine-1 Receptor Antagonist Start: 02-26-2022 take 1 tablet by mouth once daily as needed fexofenadine (ROD) 180 mg tablet Indications: Allergic rhinitis, unspecified seasonality, unspecified trigger Take 1 tablet (180 mg total) by mouth daily as needed (Allergies). 30 tablet 11 02/26/2022 Active ketorolac tromethamine 10 mg oral tablet (2 sources) Nonsteroidal Anti-inflammatory Drug, Cyclooxygenase Inhibitor Start: 04-05-2024 take 1 tablet by mouth four times daily Ketorolac 10 mg tablet Active 10 MG PO Four times daily April 05, 2024 12:00am Start: 03-24-2024 ketorolac 10 m g, Oral, Refills(s) 0 Start Date: 03/24/24 Status: Ordered lithium carbonate 300 mg extended release oral tablet (6 sources) Start: 10-29-2020 take 1 tablet by mouth once daily [place] Carbonate 300 mg Tablet Extended Release Active 300 MG PO Daily October 28, 2020 11:00pm take 1 tablet by mouth once venita y lithium carbonate 300 mg tablet Take 1 tablet (300 mg total) by mouth nightly. Active [place] Carbonat e ER 300 MG Orally Twice a day Active 24 hr mirabegron 50 mg extended release oral tablet (1 source) beta3-Adrenergic Agonist Start: 04-05-2024 take 1 tablet by mouth once daily Mirabegron 50 mg tablet extended release 24 hr Active 50 MG PO Daily April 05, 2024 12:00am montelukast 10 mg oral tablet (4 sources) Leukotriene Receptor Antagonist Start: 07-29-2021 take 1 tablet by mouth in the morning montelukast (SINGULAIR) 10 mg tablet Indications: Allergic rhinitis, unspecified seasonality, unspecified trigger Take 1 tablet (10 mg total) by mouth in the morning. 30 tablet 11 07/29/2021 Active mupirocin 0.02 mg/mg topical ointment (4 sources) RNA Synthetase Inhibitor Antibacterial Start: 01-07-2021 mupirocin (BACTROBAN) 2 % ointment Applied intranasally bilaterally 2 times daily 15 g 01/07/2021 Active ondansetron 4 mg disintegrating oral tablet (2 sources) Serotonin-3 Receptor Antagonist Start: 04-05-2024 Ondansetron 4 mg tablet,disintegra ting Active 4 MG TRANSLINGU Every 6 hours as needed for nausea and vomiting April 05, 2024 12:00am Start: 04-05-2024 Ondansetron Hc l 4 mg tablet Active 4 MG PO every 6 to 8 hours as needed for nausea and vomiting April 05, 2024 12:00am sertraline 25 mg oral tablet (4 sources) Serotonin Reuptake Inhibitor take 1 tablet by mouth once daily sertraline (ZOLOFT) 25 mg tablet Take 1 tablet (25 mg total) by mouth nightly. seasonal Active sod xiqqx-nqsojg-nbxcks bottle (NEILMED SINUS RINSE COMPLETE) packet with rinse device nasal solution (4 sources) Start: 1 take 1 dose nasal route twice daily sod tyybi-ohnddg-cefnjj bottle (NEILMED SINUS RINSE COMPLETE) packet with rinse device nasal solution Administer 1 packet into each nostril 2 (two) times a day. 60 packet 01/07/2021 Active tamsulosin hydrochloride 0.4 mg oral capsule (2 sources) alpha-Adrenergic Rafaela Start: 5 take 1 capsule by mouth once daily Tamsulosin 0.4 mg capsule Active 0.4 MG PO Daily April 05, 2024 12:00am Start: 07-14-2019 take 1 capsule by mo [facility] twice daily Flomax 0.4 mg Cap 0.4 mg = 1 cap(s), Oral, BID, # 60 cap(s), Refills(s) 1, Pharmacy: [id number], 160.02, cm, 07/14/19 10:19:00 EDT, Height/Length Measured, 67, kg, 07/14/19 10:19:00 EDT, Weight Measured Start Date: 07/14/19 Status: Ordered Problems Active Problems Problem Classification Problem Date Documented Date Episodic/Chronic Abdominal pain (7 sources) Abdominal pain; Translations: [Unspecified abdominal pain] Onset: 12-10-2020 Resolved: 12-10-2020 Episodic Acute and chronic tonsillitis (4 sources) Chronic tonsillitis; Translations: [Chronic tonsillitis] Onset: 09-25-2020 Resolved: 02-26-2022 02-26-2022 Chronic Anxiety disorders (2 sources) Generalized anxiety disorder; Translations: [Generalized anxiety disorder] Onset: 03-10-2023 Chronic Asthma (2 sources) Exacerbation of intermittent asthma; Translations: [Mild intermittent asthma with (acute) exacerbation] 07-14-2019 Chronic Calculus of urinary tract (2 sources) Kidney stone; Translations: [Calculus of kidney] Onset: 03-24-2024 Episodic Esophageal disorders (1 source) Gastroesophageal reflux disease; Translations: [Gastro-esophageal reflux disease without esophagitis] Chronic Genitourinary symptoms and ill-defined conditions (1 source) Hematuria, unspecified; Translations: [Hematuria, unspecified] Onset: 04-05-2024 Episodic Headache; including migraine (1 source) Headache 03-24-2024 [...] and ureters (1 source) Hydronephrosis 07-14-2019 Episodic Other screening for suspected conditions (not mental disorders or infectious disease) (2 sources) Patient encounter status; Translations: [Encounter for screening for cardiovascular disorders] 05-18-2024 Episodic Other upper respiratory disease (4 sources) Allergic rhinitis; Translations: [Allergic rhinitis, unspecified] Onset: 09-25-2020 09-25-2020 Chronic Other upper respiratory infections (4 sources) Sinusitis; Translations: [Chronic sinusitis, unspecified] Onset: 09-25-2020 09-25-2020 Chronic Spondylosis; intervertebral disc disorders; other back [...] [CONTACT W/AND (SUSP) EXPOS COVID-19] Onset: 10-26-2021 Urinary tract infections (2 sources) Urinary tract infectious disease; Translations: [Urinary tract infection, site not specified] Onset: 04-05-2024 04-05-2024 Episodic Viral infection (1 source) COVID-19; Translations: [COVID-19] Onset: 10-26-2021 Past or Other Problems Problem Classification Problem Date Documented Da te Episodic/Chronic Abdominal hernia (2 sources) Hiatal hernia; Translations: [Diaphragmatic hernia without obstruction or gangrene] Onset: 12-10-2020 Resolved: 12-10-2020 Episodic Complications of surgical procedures or medical care (4 sources) Bleeding following tonsillectomy; Translations: [Postprocedural hemorrhage of a respiratory system organ or structure following a respiratory system procedure] Onset: 03-10-2021 03-10-2021 Episodic Mood disorders (4 sources) Mood disorders Onset: 03-24-2021 03-24-2021 Nausea and vomiting (2 sources) Nausea and [...] Reference Range Facility Ambulatory Visit Summaryon 0 04-26-2024 Ambulatory Visit Summary Ambulatory Visit Summary NICOLEHunterCHANCE ABREU :1985 Visit Date:04/26/2024 Ambulatory Visit Instructions Your Diagnosis Foreign body in bladder Kidney stone Duplicated left renal collecting system Ureteral stenosis, left Your Care Team Attending Physician - Deangelo VALENTE MD Primary Care Physician - ILANA DELONG This Is Your Medications List Contact prescribing physician if questions or concerns mirabegron (mirabegron 50 mg oral tablet, extended release) [Image Removed: STOP]Stop taking these medications tamsulosin (Flomax 0.4 mg Cap) Procedures Performed Cystoscopic removal of ureteric stent (04/26/2024), Appendectomy, Cholecystectomy, Colonoscopy, History of laser assisted in situ keratomileusis, History of tonsillectomy. Discharge Vitals Temperature (Temporal Artery) 36.8 ???C Heart Rate (Peripheral) 92 Respiratory Rate 16 Blood Pressure 130/98 Height 160 cm Height 63 in Weight 74.6 kg Weight 164.465 lb BMI 29.14 What to do next Scheduled Follow-Up Appointments Wednesday 9:30 AM EDT With: Deangelo VALENTE MD Where: [facility] [address] [place] [address]- You Need to Schedule the Following Appointments Follow Up with Deangelo VALENTE MD, URL When: Where: [facility] [address], [place] [address]- You Need to Complete the Following XR Abdomen 1 View, 04/15/25, Routine, Order for future visit, Transport Mode: Ambulatory, Reason: Kidney stone, No, Kidney stone, pp_set_radiology_subspecia lty, [facility] Medications What How Much When Instructions Unchanged mirabegron (mirabegron 50 mg oral tablet, extended release) 1 Tablets By Mouth Every day TAKE 1 TABLET BY MOUTH DAILY Contact prescribing physician if questions or concerns What How Much When Comments Stop Taking tamsulosin (Flomax 0.4 mg Cap) 1 Capsules By Mouth 2 times a day Medications and Immunizations Administered Given lidocaine Top 2% Gel w/Appl 6 mL, 6 mL, Topical. For: Allergies LaMICtal (Rash) Pork (Unknown) Problems Ongoing - Any problem that you are currently receiving treatment for. Asthma Bipolar disorder Depression Duplicated left renal collecting system Foreign body in bladder Head ache Kidney stone Ureteral stenosis, left Patient Survey You may receive a survey via text or e-mail asking about your office visit. Please share your experience with us by completing your survey. We appreciate your feedback and thank you for choosing us for your care. Education Materials Dietary Guidelines to Help Prevent Kidney Stones Kidney stones are deposits of minerals and salts that form inside your kidneys. Your risk of developing kidney stones may be greater depending on your diet, your lifestyle, the medicines you take, and whether you have certain medical conditions. Most people can lower their risks of developing kidney stones by following these dietary guidelines. Your dietitian may give you more specific instructions depending on your overall health and the type of kidney stones you tend to develop. What are tips for following this plan? Reading food labels ??? Choose foods with no salt added or low-salt labels. Limit your salt (sodium) intake to less than 1,500 mg a day. ??? Choose foods with calcium for each meal and snack. Try to eat about 300 mg of calcium at each meal. Foods that contain 200???500 mg of calcium a serving include: ? 8 oz (237 mL) of milk, ethrbzo-nedoilaemmkn-hugtr milk, and calcium-fortifiedfruit juice. Calcium-fortified means that calcium has been added to these drinks. ? 8 oz (237 mL) of kefir, yogurt, and soy yogurt. ? 4 oz (114 g) of tofu. ? 1 oz (28 g) of cheese. ? 1 cup (150 g) of dried figs. ? 1 cup (91 g) of cooked broccoli. ? One 3 oz (85 g) can of sardines or mackerel. Most people need 1,000???1,500 mg of calcium a day. Talk to your dietitian about how much calcium is recommended for you. Shopping ??? Buy plenty of fresh fruits and vegetables. Most people do not need to avoid fruits and vegetables, even if these foods contain nutrients that may contribute to kidney stones. ??? When shopping for convenience foods, choose: ? Whole pieces of fruit. ? Pre-made salads with dressing on the side. ? Low-fat fruit and yogurt smoothies. ??? Avoid buying frozen meals or prepared deli foods. These can be high in sodium. ??? Look for foods with live cultures, such as yogurt and kefir. ??? Choose high-fiber grains, such as whole-wheat breads, oat bran, and wheat cereals. Cooking ??? Do not add salt to food when cooking. Place a salt shaker on the table and allow each person to add their own salt to taste. ??? Use vegetable protein, such as beans, textured vegetable protein (TVP), or tofu, instead of meat in pasta, (more content not included)... [facility] Provider Letteron 04-26-2024 Provider Letter Provider Letter April 26, 2024 CHANCE RIVERAORLIN [address] [place] [address] : 1985 To Whom It May Concern, Please excuse above patient from work. Date of Illness: From: 03/24/24 To: 04/30/24 May Return to Work On: 05/01/2024 Restrictions: None Comments: Patient may return to work on 05/01/24 without restrictions Sincerely, [facility] Urology Office/Clinic Noteon 04-26-2024 Urology Office/Clinic Note Urology Office/Clinic Note Chief Complaint Cysto/left stent removal HPI Staff Here for cysto, L stent removal. Not Abx taken. But took abx from [facility] ER. Quit taking doxycycline from 03/30 the per ER. S/p cysto, L urs, L pyelo, laser litho L renal stones, L stent placement 03/30/24 - Distal L ureteral stenosis and Alex's plaques noted in [facility]. [facility] ED 04/05/24 d/t L sided abdominal/flank pain and gross hematuria. Dx with UTI. Treated with Keflex 500 mg q6hr x 7 days. CTU 04/05/24 [facility]. Pt has been having pinkish urine off and on and some left flank discomfort History of Present Illness Tests reviewed: UA, op note, ED records, CT I have reviewed the previous health record information and history for this patient from Dr. Valente. I have reviewed and verified the staff HPI to be accurate for this encounter. Review of Systems PHQ Score Initial [...] See HPI. Physical Exam Vitals & Measurements T: 36.8 ???C(Temporal Artery) HR: 92(Peripheral) RR: 16 BP: 130/98 HT: 63 in HT: 160 cm WT: 74.6 kg WT: 164.465 lb BMI: 29.14 General Appearance: alert, no distress, well nourished, well developed female. Procedure Operative Information Anesthesia Type: Local Procedure: Local Cystoscopy with Stent Removal Complications: None Surgical risks, benefits, details of the procedure have been explained to the patient. Full informed consent has been obtained. Intraoperative Information Prepped: Patient is placed in modified dorso/lithotomy position. The patient was prepped with the Betadine solution. Anesthesia: 2% Xylocaine Jelly per urethra. Procedure: Cystoscopy and left stent removal. The flexible Cystoscope was passed in retrograde fashion into the bladder without difficulty. The bladder was viewed in entirety and found to be without tumors or stones. Mild inflammation was seen surrounding the orifice with the stent seen protruding from it. The stent was then grasped and removed in its entirety. Specimens Removed: None Postoperative Information The patient tolerated the procedure well and was subsequently discharged home. Assessment/Plan 1. Foreign body in bladder (T19.1XXA: Foreign body in bladder, initial encounter) S/p cysto, L urs, L pyelo, laser litho L renal stones, L stent placement 03/30/24. Pt had IO cysto, L stent removal today wo complications. 2. Kidney stone (N20.0: Calculus of kidney) S/p cysto, rigid L ureteral dilation, L URS, L stone basket extraction, L stent placement 08/03/19. S/p cysto with L stent removal 08/14/19. CT AP wo con 04/20/22 [facility] - Neg. ZOHAIB 03/23/24 [facility] (results read over the phone to LG) - R ~4 mm stone. L ~2 stones mid pole, measuring 4 mm. 6 mm stone in the left renal pelvis. S/p cysto, L urs, L pyelo, laser litho L renal stones, L stent placement 03/30/24 - Distal L ureteral stenosis and Alex's plaques noted in [facility]. [facility] ED 04/05/24 d/t L sided abdominal/flank pain and gross hematuria. Dx with UTI. Treated with Keflex 500 mg q6hr x 7 days. CTU 04/05/24 [facility] - L ureteral stent. Irregular bladder wall thickening, most prevalent in superior portion of L bladder. May represent infectious/inflammatory etiology. Discussed metabolic workup including 24 hour urine and blood work for stone prevention. Follow up 3 mos with metabolic workup. or sooner if needed. Pt understands and agrees with plan. 3. 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 4. Ureteral stenosis, left (N13.5: Crossing vessel and stricture of ureter without hydronephrosis) Noted from laser litho on 03/30/24. Follow-up With When Contact Information SYMONE OLVERA, Deangelo Funes, [facility] [address], [place] [address]- Additional Instructions: 3 mos with metabolic workup Patient Education Dietary Guidelines to Help Prevent Kidney Stones I, Floridalma Zamora, personally scribed for Dr. Valente on 04/26/2024 14:32:02. . Documentation recorded by the scribe, Floridalma Zamora, accurately reflects the services(s) I performed and decisions made by me. Authenticated by Dr. Valente on 04/26/2024 14:36:20. Problem List/Past Medical History Ongoing Asthma Bipolar disorder Depression Duplicated left renal collecting system Foreign body in bladder Head ache Kidney stone Ureteral stenosis, left Historical No qualifying (more content not included)... [facility] Comment on above: Result Comment: Elec tronically Signed By: Deangelo VALENTE MD\.br\Date and Time Signed: 04/26/24 14:36 EDT\.br\Electronically Co-Signed By: Floridalma Zamora\.br\Date and Time Co-Signed: 04/26/24 14:33 EDT Alanine aminotransferase [En zymatic activity/volume] in Serum or PlasmaOrdered By: Pedro Parks on 04-05-2024 ALT [Catalytic activity/Vol] Alanine aminotransferase [Enzymatic activity/volume] in Serum or Plasma 7-52 [facility] Albumin [Mass/volume] in Ser um or Plasma by Bromocresol green (BCG) dye binding methoOrdered By: Pedro Parks on 04-05-2024 Albumin BCG dye [Mass/Vol] Albumin [Mass/volume] in Serum or Plasma by Bromocresol green (BCG) dye binding metho 3.5-5.7 [facility] Alkaline phosphatase [Enzyma tic activity/volume] in Serum or PlasmaOrdered By: Pedro Parks on 04-05-2024 ALP [Catalytic activity/Vol] Alkaline phosphatase [Enzymatic activity/volume] in Serum or Plasma 34-104 [facility] Appearance of UrineOrdered B y: Pedro Parks on 04-05-2024 Appearance (U) Urine appearance Abnormal Clear [place] Aspartate aminotransferase [ Enzymatic activity/volume] in Serum or PlasmaOrdered By: Pedro Parks on 04-05-2024 AST [Catalytic activity/Vol] Aspartate aminotransferase [Enzymatic activity/volume] in Serum or Plasma 13-39 [facility] Bacteria [Presence] in Urine by AutomatedOrdered By: Pedro Parks on 04-05-2024 Bacteria Auto Ql (U) Bacteria [Presence] in Urine by Automated None Seen [facility] Basophils Auto (Bld) [#/Vol] Ordered By: Pedro Parks on 04-05-2024 Basophils (Bld) [#/Vol] Automated basophil count 0.0-0.2 [facility] Basophils/100 WBC Auto (Bld) Ordered By: Pedro Parks on 04-05-2024 Basophils/100 WBC (Bld) Automated basophil % . [facility] Bilirubin Test strip Ql (U)O rdered By: Pedro Parks on 04-05-2024 Bilirubin Ql (U) Bilirubin.total [Pre sence] in Urine by Test strip Negative [facility] Bilirubin.total [Mass/volume ] in Serum or PlasmaOrdered By: Pedro Parks on 04-05-2024 Bilirubin [Mass/Vol] Bilirubin.total [Mass/volume] in Serum or Plasma 0.3-1.0 [facility] CT urogramon 04-05-2024 CT urogram [facility] Main [place] [address] [place] [address] CT Scan Report Signed Patient: Chance Jacobs MR#: [id number] : 1985 Acct:[id number] Age/Sex: 39 / F ADM Date: 04/05/24 Loc: ER Room: Type: [facility] ER Attending Dr: Copies to: Pedro Parks DO Ordering Provider: Pedro Parks DO Date of Service: 04/05/24 CT/CT urogram: recent stent placement, hematuria today CT urogram TECHNIQUE: Axial imaging with 2-D reconstruction.90 cc of Isovue-300. The CT exam was performed using one or more the following dose reduction techniques: Automated exposure control, adjustment of the MA and/or Kv according to patient size, or use of the iterative reconstruction technique. COMPARISON: None History: Left ureteral stent placement. Hematuria. LIMITATIONS: None LOWER THORAX Unremarkable LIVER: Unremarkable GALLBLADDER: Cholecystectomy clips identified. BILE DUCTS: No dilatation SPLEEN: Unremarkable PANCREAS: Unremarkable ADRENAL GLANDS: Unremarkable KIDNEYS:Adequate position of left ureteral stent with proximal tip in the lower pole moiety.. 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 AORTA: No abdominal aortic aneurysm identified. RETROPERITONEUM: No significant retroperitoneal abnormalities identified. MESENTERY:Unremarkable SMALL BOWEL: The small bowel loops are nondistended. APPENDIX: Appendectomy changes identified. COLON: Mild constipation URINARY BLADDER: Irregular urinary bladder wall thickening. Thickening most prevalent in the superior left portion of urinary bladder. REPRODUCTIVE SYSTEM: Reproductive structures are unremarkable. PNEUMOPERITONEUM: None PERITONEAL FLUID:None BONY STRUCTURES: Unremarkable ABDOMINAL WALL: Unremarkable CT/CT urogram IMPRESSION: Focal wall thickening of the superior left portion of the urinary bladder. May represent infectious or inflammatory etiology. Correlate with cystoscopy findings to exclude other etiologies. Adequate position of left ureteral stent. Duplication of the left ureteral stent. Proximal end of the stent is in the lower pole moiety. Impression dictated by: Bob Mead M.D.04/05/2024 3:00 PM Dictation Location: [facility] Transcribed By: [facility] 04/05/24 1500 Dictated By: Bob Mead DO 04/05/24 1450 Signed By: 04/05/24 1500 Normal [facility] Calcium [Mass/volume] in Ser um or PlasmaOrdered By: Pedro Parks on 04-05-2024 Calcium [Mass/Vol] Calcium [Mass/volume ] in Serum or Plasma 8.6-10.3 [facility] Carbon dioxide, total [Moles /volume] in Serum or PlasmaOrdered By: Pedro Parks on 04-05-2024 CO2 [Moles/Vol] Carbon dioxide, tota l [Moles/volume] in Serum or Plasma 21.0-31.0 [facility] Chloride [Moles/volume] in S lora or PlasmaOrdered By: Pedro Parks on 04-05-2024 Chloride [Moles/Vol] Chloride [Moles/vol ume] in Serum or Plasma 98-107 [facility] Coagulation Profileon 2024 aPTT Coag (Bld) [Time] 30.1 s Normal 25.1-36.5 [facility] Comment on above: Result Comment: A he matocrit value greater than 55% may lead to inaccurate results in coagulation testing. Patients having hematocrit values >55% require a special collection tube for coagulation studies. Please contact the laboratory at [phone] for redraw instructions. PERFORMED BY: [place] [address] PATHOLOGIST MEDICATION TECH FARZANEH TORRES M.D. Performed By: #### C NEIL KERR, PP #### [facility] [address] [place] [address] INR Coag (PPP) [Relative time] 1.0 {INR} Normal [facility] Comment on above: Result Comment: INR Therapeutic Range A) Pre- and Peroperative OAT started two weeks before surgery. NOT HIP SURGERY: 1.5 - 2.5 HIP SURGERY: 2 - 3 B) Primary and secondary prevention of venous THROMBOSIS: 2 - 3 C) Active venous thrombosis, pulmonary embolism and prevention of recurrent venous thrombosis: 2 - 3 D) Prevention of arterial thromboembolism including patients with mechanical heart valves: 3 - 4.5 Performed By: #### C USHA, CMP, PP #### [address] PT Coag (PPP) [Time] 11.9 s Normal 9.0-12.9 [facility] Comment on above: Result Comment: A he matocrit value greater than 55% may lead to inaccurate results in coagulation testing. Patients having hematocrit values >55% require a special collection tube for coagulation studies. Please contact the laboratory at [phone] for redraw instructions. Performed By: #### C BC, CMP, PP #### [address] Color Auto (U)Ordered By: Joey Parks on 04-05-2024 Color (U) Color of Urine by Auto Yellow Fi [facility] Complete Blood Count Auto Di ffon 04-05-2024 Basophils (Bld) [#/Vol] 0.0 10*3/uL Normal 0.0-0.2 [facility] Comment on above: Result Comment: PERF ORMED BY: [place] [address] PATHOLOGIST MEDICATION TECH FARZANEH TORRES M.D. Performed By: #### C BC, CMP, PP #### [address] Basophils/100 WBC (Bld) 0.6 % Normal . [facility] Comment on above: Performed By: #### C BC, CMP, PP #### [address] Eosinophils (Bld) [#/Vol] 0.2 10*3/uL Normal 0.0-0.45 [facility] Comment on above: Performed By: #### C BC, CMP, PP #### [address] Eosinophils/100 WBC (Bld) 2.6 % Normal . [facility] Comment on above: Performed By: #### C BC, CMP, PP #### [address] Erythrocyte distribution width (RBC) [Ratio] 13.9 % Normal 11.9-15.3 [facility] Comment on above: Performed By: #### C BC, CMP, PP #### [address] Hematocrit (Bld) [Volume fraction] 41.8 % Normal 34.0-46.4 [facility] Comment on above: Performed By: #### C BC, CMP, PP #### [address] Hemoglobin (Bld) [Mass/Vol] 14.1 g/dL Normal 11.8-15.4 [facility] Comment on above: Performed By: #### C BC, CMP, PP #### [address] Lymphocytes (Bld) [#/Vol] 2.0 10*3/uL Normal 1.00-4.8 [facility] Comment on above: Performed By: #### C BC, CMP, PP #### [address] Lymphocytes/100 WBC (Bld) 27.9 % Normal . [facility] Comment on above: Performed By: #### C BC, CMP, PP #### [address] MCH (RBC) [Entitic mass] 28.2 pg Normal 24.7-34.3 [facility] Comment on above: Performed By: #### C BC, CMP, PP #### [address] MCV (RBC) [Entitic vol] 83.4 fL Normal 80-100 [facility] Comment on above: Performed By: #### C BC, CMP, PP #### [address] Mean Corpuscular HGB Conc 33.8 g/dL Normal 32.0-35.0 [facility] Comment on above: Performed By: #### C BC, CMP, PP #### [address] Monocytes (Bld) [#/Vol] 0.4 10*3/uL Normal 0.0-0.8 [facility] Comment on above: Performed By: #### C BC CMP, PP #### [address] Monocytes/100 WBC (Bld) 17.71 % Normal 0.00-20.00 [facility] Comment on above: Performed By: #### C BC CMP, PP #### [facility] [address] Monocytes/100 WBC (Bld) 6.1 % Normal . [facility] Comment on above: Performed By: #### C USHA CMP, PP #### [address] Neutrophils (Bld) [#/Vol] 4.4 10*3/uL Normal 1.8-7.7 [facility] Comment on above: Performed By: #### C USHA CMP, PP #### [address] Neutrophils/100 WBC (Bld) 62.8 % Normal . [facility] Comment on above: Performed By: #### C USHA CMP, PP #### [address] NRBC% 0.1 /100{WBC} Normal 0-0.5 [facility] Comment on above: Performed By: #### C BC CMP, PP #### [place] [address] [place] Platelet mean volume (Bld) [Entitic vol] 6.6 fL Normal 6.3-10.7 [facility] Comment on above: Performed By: #### C BC CMP, PP #### [place] [address] [place] Platelets (Bld) [#/Vol] 433 10*3/uL Normal 150-450 [facility] Comment on above: Performed By: #### C BC CMP, PP #### [place] [address] [place] RBC (Bld) [#/Vol] 5.02 10*6/uL High 3.60-5.00 [facility] Comment on above: Performed By: #### C USHA CMP, PP #### [address] WBC (Bld) [#/Vol] 7.0 10*3/uL Normal 3.8-11.6 [facility] Comment on above: Performed By: #### C USHA CMP, PP #### [address] Comprehensive Metabolic Pane dhruv 04-05-2024 Albumin [Mass/Vol] 4.0 g/dL Normal 3.5-5.7 [facility] Comment on above: Performed By: #### C USHA CMP, PP #### [address] Albumin/Globulin [Mass ratio] 1.1 {ratio} Normal [facility] Comment on above: Performed By: #### C USHA CMP, PP #### [address] ALP [Catalytic activity/Vol] 44 U/L Normal 34-104 [facility] Comment on above: Performed By: #### C USHA CMP, PP #### [address] ALT [Catalytic activity/Vol] 16 U/L Normal 7-52 [facility] Comment on above: Performed By: #### C BC CMP, PP #### [address] Anion gap [Moles/Vol] 11.3 mmol/L Normal 6.0-15.0 [facility] Comment on above: Performed By: #### C BC CMP, PP #### [address] AST [Catalytic activity/Vol] 17 U/L Normal 13-39 [facility] Comment on above: Performed By: #### C BC CMP, PP #### [address] Bilirubin [Mass/Vol] 0.4 mg/dL Normal 0.3-1.0 [facility] Comment on above: Performed By: #### C USHA CMP, PP #### [address] Calcium [Mass/Vol] 9.1 mg/dL Normal 8.6-10.3 [facility] Comment on above: Performed By: #### C BC CMP, PP #### [address] Chloride [Moles/Vol] 106 mmol/L Normal 98-107 [facility] Comment on above: Performed By: #### C USHA CMP, PP #### [address] CO2 [Moles/Vol] 24.0 mmol/L Normal 21.0-31.0 [facility] Comment on above: Performed By: #### C USHA CMP, PP #### [address] Creatinine [Mass/Vol] 0.88 mg/dL Normal 0.60-1.20 [facility] Comment on above: Performed By: #### C USHA CMP, PP #### [address] Creatinine Clr Calc Pharmacy 82.54 Normal [facility] Comment on above: Result Comment: PERF ORMED BY: [place] [address] PATHOLOGIST MEDICATION TECH FARZANEH TORRES M.D. Performed By: #### C USHA CMP, PP #### [address] GFR/1.73 sq M.predicted MDRD (S/P/Bld) [Vol rate/Area] mL/min/{1.73_m2} Normal [facility] Comment on above: Performed By: #### C BC CMP, PP #### [address] Globulin (S) [Mass/Vol] 3.6 g/dL Normal [facility] Comment on above: Performed By: #### C BC CMP, PP #### [facility] [address] Glucose [Mass/Vol] 87 mg/dL Normal 70-100 [facility] Comment on above: Result Comment: [place] Glucose Reference Range is dependent on time and content of last meal. Glucose of more than 200 mg/dL in a nonstressed, ambulatory subject supports the diagnosis of Diabetes Mellitus. ADA recommended reference range Performed By: #### C BC, CMP, PP #### [facility] [address] Potassium [Moles/Vol] 4.3 mmol/L Normal 3.5-5.1 [facility] Comment on above: Performed By: #### C USHA CMP, PP #### [facility] [address] [place] [address] [place] Protein [Mass/Vol] 7.6 g/dL Normal 6.4-8.9 [facility] Comment on above: Performed By: #### C USHA, CMP, PP #### [facility] [address] [place] [address] [place] Sodium [Moles/Vol] 137 mmol/L Normal 136-145 [facility] Comment on above: Performed By: #### C USHA, CMP, PP #### [facility] [address] [place] [id number] [place] Urea nitrogen [Mass/Vol] 9 mg/dL Normal 7-25 [facility] Comment on above: Performed By: #### C BC, CMP, PP #### [facility] [address] [place] [id number] [place] Creatinine [Mass/volume] in Serum or PlasmaOrdered By: Pedro Parks on 04-05-2024 Creatinine [Mass/Vol] Creatinine [Mass/v olume] in Serum or Plasma 0.60-1.20 [facility] Dipstick and Microscopicon 0 04-05-2024 Appearance (U) Cloudy Critically abnormal Clear [facility] Comment on above: Order Comment: Name Collection Type:: Clean-Voided Midstream Performed By: #### C UU, ADDONUAPLUS #### [address] Bacteria,Urine Rare Normal None Seen [facility] Comment on above: Order Comment: Name Collection Type:: Clean-Voided Midstream Performed By: #### C UU, ADDONUAPLUS #### [address] Bilirubin,Urine Negative Normal Negative [facility] Comment on above: Order Comment: Name Collection Type:: Clean-Voided Midstream Performed By: #### C UU, ADDONUAPLUS #### [address] Color (U) Yellow Normal Yellow [facility] Comment on above: Order Comment: Name Collection Type:: Clean-Voided Midstream Performed By: #### C UU, ADDONUAPLUS #### [address] Glucose Ql (U) Normal Normal Normal [facility] Comment on above: Order Comment: Name Collection Type:: Clean-Voided Midstream Performed By: #### C UU, ADDONUAPLUS #### [place] [address] [place] Hyaline Casts,Urine None Normal 0-8 [facility] Comment on above: Order Comment: Name Collection Type:: Clean-Voided Midstream Performed By: #### C UU, ADDONUAPLUS #### [place] [address] [place] Ketones Ql (U) Negative Normal Negative [facility] Comment on above: Order Comment: Name Collection Type:: Clean-Voided Midstream Performed By: #### C UU, ADDONUAPLUS #### [address] Leukocyte esterase Test strip Ql (U) 4+ High Negative [facility] Comment on above: Order Comment: Name Collection Type:: Clean-Voided Midstream Performed By: #### C UU, ADDONUAPLUS #### [place] [id number] [place] Mucus,Urine 3+ Critically abnormal [facility] Comment on above: Order Comment: Name Collection Type:: Clean-Voided Midstream Result Comment: PERF ORMED BY: [place] [address] PATHOLOGIST MEDICATION TECH FARZANEH TORRES M.D. Performed By: #### C UU, ADDONUAPLUS #### [address] Nitrite,Urine Negative Normal Negative [facility] Comment on above: Order Comment: Name Collection Type:: Clean-Voided Midstream Performed By: #### C UU, ADDONUAPLUS #### [address] Occult Blood,Urine 3+ High Negative [facility] Comment on above: Order Comment: Name Collection Type:: Clean-Voided Midstream Result Comment: PERF ORMED BY: [place] [address] PATHOLOGIST MEDICATION TECH FARZANEH TORRES M.D. Performed By: #### C UU, ADDONUAPLUS #### [address] pH (U) 6.0 [pH] Normal 5.0-9.0 [facility] Comment on above: Order Comment: Name Collection Type:: Clean-Voided Midstream Performed By: #### C UU, ADDONUAPLUS #### [address] Protein (U) [Mass/Vol] 100 mg/dL High Negative [facility] Comment on above: Order Comment: Name Collection Type:: Clean-Voided Midstream Performed By: #### C UU, ADDONUAPLUS #### [address] RBC,Urine Innumerable High 0-4 [facility] Comment on above: Order Comment: Name Collection Type:: Clean-Voided Midstream Performed By: #### C UU, ADDONUAPLUS #### [address] Specificy [place],Urine 1.018 Normal 1.001-1.030 [facility] Comment on above: Order Comment: Name Collection Type:: Clean-Voided Midstream Performed By: #### C UU, ADDONUAPLUS #### [address] Squamous Epithelial Cell,Urine 5-9 High 0-2 [facility] Comment on above: Order Comment: Name Collection Type:: Clean-Voided Midstream Performed By: #### C UU, ADDONUAPLUS #### [address] Urobilinogen,Urine Normal Normal Normal [facility] Comment on above: Order Comment: Name Collection Type:: Clean-Voided Midstream Performed By: #### C UU, ADDONUAPLUS #### [address] WBC CLUMP, Urine Moderate High None Seen [facility] Comment on above: Order Comment: Name Collection Type:: Clean-Voided Midstream Performed By: #### C UU, ADDONUAPLUS #### [address] WBC,Urine 50-100 High 0-4 [facility] Comment on above: Order Comment: Name Collection Type:: Clean-Voided Midstream Performed By: #### C UU, ADDONUAPLUS #### [address] Eosinophils Auto (Bld) [#/Vo l]Ordered By: Pedro Parks on 04-05-2024 Eosinophils (Bld) [#/Vol] Automated eosinophil count 0.0-0.45 [facility] Eosinophils/100 WBC Auto (Bl d)Ordered By: Pedro Parks on 04-05-2024 Eosinophils/100 WBC (Bld) Automated eosinophil % . [facility] Epithelial cells.squamous [# /area] in Urine sediment by Automated countOrdered By: Pedro Parks on 04-05-2024 Epithelial cells.squamous Auto (Urine sed) [#/Area] Epithelial cells.squamous [#/area] in Urine sediment by Automated count High 0-2 [facility] Erythrocyte distribution wid th Auto (RBC) [Ratio]Ordered By: Pedro Parks on 04-05-2024 Erythrocyte distribution width (RBC) [Ratio] Erythrocyte distribution width [Ratio] by Automated count 11.9-15.3 [facility] Erythrocytes [#/area] in Uri ne sediment by Automated countOrdered By: Pedro Parks on 04-05-2024 RBC Auto (Urine sed) [#/Area] Erythrocytes [#/area] in Urine sediment by Automated count High 0-4 [facility] Globulin Calc (S) [Mass/Vol] Ordered By: Pedro Parks on 04-05-2024 Globulin (S) [Mass/Vol] Serum globulin measurement by calculation (mass/volume) [facility] Glucose [Mass/volume] in Ser um or PlasmaOrdered By: Pedro Parks on 04-05-2024 Glucose [Mass/Vol] Glucose [Mass/volume ] in Serum or Plasma 70-100 [facility] Comment on above: ADA recommended refe rence rangeRandom Glucose Reference Range is dependent on time and content of last meal. Glucose of more than 200 mg/dL in a nonstressed, ambulatory subject supports the diagnosis of Diabetes Mellitus. Glucose [Mass/volume] in Uri ne by Test stripOrdered By: Pedro Parks on 04-05-2024 Glucose Test strip (U) [Mass/Vol] Glucose [Mass/volume] in Urine by Test strip Normal [facility] HCG ( test) IA.rapi d Ql (U)Ordered By: Pedro Parks on 04-05-2024 HCG ( test) Ql (U) Urine human chorionic gonadotropin (hCG) detection by immunoassay [facility] HCG,Urineon 04-05-2024 Beta HCG ( test) Ql (U) Negative Normal [facility] Comment on above: Result Comment: PERF ORMED BY: [place] [address] PATHOLOGIST MEDICATION TECH FARZANEH TORRES M.D. Performed By: #### U HCG #### [place] [address] [facility] Hematocrit Auto (Bld) [Volum e fraction]Ordered By: Pedro Parks on 04-05-2024 Hematocrit (Bld) [Volume fraction] Hematocrit [Volume Fraction] of Blood by Automated count 34.0-46.4 [facility] Hemoglobin Test strip Ql (U) Ordered By: Pedro Parks on 04-05-2024 Hemoglobin Ql (U) Hemoglobin [Presence ] in Urine by Test strip High Negative [facility] Hemoglobin [Mass/volume] in BloodOrdered By: Pedro Parks on 04-05-2024 Hemoglobin (Bld) [Mass/Vol] Hemoglobin [Mass/volume] in Blood 11.8-15.4 [facility] Hyaline casts [#/area] in Ur ine sediment by Automated countOrdered By: Pedro Parks on 04-05-2024 Hyaline casts Auto (Urine sed) [#/Area] Hyaline casts [#/area] in Urine sediment by Automated count 0-8 [facility] INR in Platelet poor plasma by Coagulation assayOrdered By: Pedro Parks on 04-05-2024 INR Coag (PPP) [Relative time] INR in Platelet poor plasma by Coagulation assay [facility] Comment on above: INR Therapeutic Rang e A) Pre- and Peroperative OAT started two weeks before surgery. NOT HIP SURGERY: 1.5 - 2.5 HIP SURGERY: 2 - 3B) Primary and secondary prevention of venous THROMBOSIS: 2 - 3C) Active venous thrombosis, pulmonary embolismand prevention of recurrent venous thrombosis: 2 - 3D) Prevention of arterial thromboembolismincluding patients with mechanical heart valves: 3 - 4.5 Ketones Test strip Ql (U)Ord ered By: Pedro Parks on 04-05-2024 Ketones Ql (U) Ketones [Presence] i n Urine by Test strip Negative [facility] Leukocyte clumps [Presence] in Urine by AutomatedOrdered By: Pedro Parks on 04-05-2024 Leukocyte clumps Auto Ql (U) Leukocyte clumps [Presence] in Urine by Automated High None Seen [facility] Leukocyte esterase [Presence ] in Urine by Test stripOrdered By: Pedro Parks on 04-05-2024 Leukocyte esterase Test strip Ql (U) Leukocyte esterase [Presence] in Urine by Test strip High Negative [facility] Leukocytes [#/area] in Urine sediment by Automated countOrdered By: Pedro Parks on 04-05-2024 WBC Auto (Urine sed) [#/Area] Leukocytes [#/area] in Urine sediment by Automated count High 0-4 [facility] Leukocytes [#/volume] correc joycelyn for nucleated erythrocytes in Blood by Automated counOrdered By: Pedro Parks on 04-05-2024 WBC corrected for nucl RBC Auto (Bld) [#/Vol] Leukocytes [#/volume] corrected for nucleated erythrocytes in Blood by Automated coun 3.8-11.6 [facility] Lymphocytes Auto (Bld) [#/Vo l]Ordered By: Pedro Parks on 04-05-2024 Lymphocytes (Bld) [#/Vol] Lymphocytes [#/volume] in Blood by Automated count 1.00-4.8 [facility] Lymphocytes/100 WBC Auto (Bl d)Ordered By: Pedro Parks on 04-05-2024 Lymphocytes/100 WBC (Bld) Lymphocytes/100 leukocytes in Blood by Automated count . [facility] MCH Auto (RBC) [Entitic mass ]Ordered By: Pedro Parks on 04-05-2024 MCH (RBC) [Entitic mass] MCH [Entitic mass] by Automated count 24.7-34.3 [facility] MCHC Auto (RBC) [Mass/Vol]Or dered By: Pedro Parks on 04-05-2024 MCHC (RBC) [Mass/Vol] MCHC [Mass/volume] by Automated count 32.0-35.0 [facility] MCV Auto (RBC) [Entitic vol] Ordered By: Pedro Parks on 04-05-2024 MCV (RBC) [Entitic vol] MCV [Entitic volume] by Automated count 80-100 [facility] Monocyte distribution width [Entitic volume] in Blood by AutomatedOrdered By: Pedro Parks on 04-05-2024 Monocyte distribution width Auto (Bld) [Entitic vol] Monocyte distribution width [Entitic volume] in Blood by Automated 0.00-20.00 [facility] Monocytes Auto (Bld) [#/Vol] Ordered By: Pedro Parks on 04-05-2024 Monocytes (Bld) [#/Vol] Automated blood monocyte count 0.0-0.8 [facility] Monocytes/100 WBC Auto (Bld) Ordered By: Pedro Parks on 04-05-2024 Monocytes/100 WBC (Bld) Automated monocyte % . [facility] Mucus [Presence] in Urine by AutomatedOrdered By: Pedro Parks on 04-05-2024 Mucus Auto Ql (U) Mucus [Presence] in Urine by Automated Abnormal [facility] Neutrophils Auto (Bld) [#/Vo l]Ordered By: Pedro Parks on 04-05-2024 Neutrophils (Bld) [#/Vol] Neutrophils [#/volume] in Blood by Automated count 1.8-7.7 [facility] Neutrophils/100 WBC Auto (Bl d)Ordered By: Pedro Parks on 04-05-2024 Neutrophils/100 WBC (Bld) Automated neutrophil % . [facility] Nitrite Test strip Ql (U)Ord ered By: Pedro Parks on 04-05-2024 Nitrite Ql (U) Nitrite [Presence] i n Urine by Test strip Negative [facility] No Panel InformationOrdered By: Pedro Parks on 04-05-2024 Estimated GFR (CKD-EPI) > 60.0 mL/Min [facility] Creatinine Clearance (Chem 82.54 [facility] Nucleated erythrocytes [Pres ence] in Blood by Automated countOrdered By: Pedro Parks on 04-05-2024 Nucleated RBC Auto Ql (Bld) Nucleated erythrocytes [Presence] in Blood by Automated count 0-0.5 [facility] Platelet mean volume Auto (B ld) [Entitic vol]Ordered By: Pedro Parks on 04-05-2024 Platelet mean volume (Bld) [Entitic vol] Platelet mean volume [Entitic volume] in Blood by Automated count 6.3-10.7 [facility] Platelets Auto (Bld) [#/Vol] Ordered By: Pedro Parks on 04-05-2024 Platelets (Bld) [#/Vol] Platelets [#/volume] in Blood by Automated count 150-450 [facility] Potassium [Moles/volume] in Serum or PlasmaOrdered By: Pedro Parks on 04-05-2024 Potassium [Moles/Vol] Potassium [Moles/v olume] in Serum or Plasma 3.5-5.1 [facility] Protein Test strip (U) [Mass /Vol]Ordered By: Pedro Parks on 04-05-2024 Protein (U) [Mass/Vol] Protein [Mass/vol ume] in Urine by Test strip High Negative [facility] Protein [Mass/volume] in Ser um or PlasmaOrdered By: Pedro Parks on 04-05-2024 Protein [Mass/Vol] Protein [Mass/volume ] in Serum or Plasma 6.4-8.9 [facility] Prothrombin time (PT)Ordered By: Pedro Parks on 04-05-2024 PT Coag (PPP) [Time] Prothrombin time (PT) 9.0- 12.9 [facility] Comment on above: A hematocrit value g reater than 55% may lead to inaccurate results in coagulation testing. Patients having hematocrit values >55% require a special collection tube for coagulation studies. Please contact the laboratory at [phone] for redraw instructions. RBC Auto (Bld) [#/Vol]Ordere d By: Pedro Parks on 04-05-2024 RBC (Bld) [#/Vol] Erythrocytes [#/volu me] in Blood by Automated count High 3.60-5.00 [facility] Serum or plasma albumin/glob ulin mass ratioOrdered By: Pedro Parks 04-05-2024 Albumin/Globulin [Mass ratio] Serum or plasma albumin/globulin mass ratio [facility] Serum or plasma anion gap de terminationOrdered By: Pedro Parks 04-05-2024 Anion gap [Moles/Vol] Serum or plasma an ion gap determination 6.0-15.0 [facility] Sodium [Moles/volume] in Ser um or PlasmaOrdered By: Pedro Parks 04-05-2024 Sodium [Moles/Vol] Sodium [Moles/volume ] in Serum or Plasma 136-145 [facility] Specific gravity Test strip (U) [Rel density]Ordered By: Pedro Parks on 04-05-2024 Specific gravity (U) [Rel density] Specific gravity of Urine by Test strip 1.001-1.030 [facility] Urea nitrogen [Mass/volume] in Serum or PlasmaOrdered By: Pedro Parks 04-05-2024 Urea nitrogen [Mass/Vol] Urea nitrogen [Mass/volume] in Serum or Plasma 09-08 [facility] Urine Cultureon 04-05-2024 Bacteria identified Cx Nom (U) No Growth 2 Days PERFORMED BY: [facility] [address] [place] [address] PATHOLOGIST MEDICATION TECH FARZANEH TORRES M.D. Normal [facility] Comment on above: Performed By: #### C UU, ADDONUAPLUS #### [place] [id number] [facility] Urobilinogen Test strip (U) [Mass/Vol]Ordered By: Pedro Parks on 04-05-2024 Urobilinogen (U) [Mass/Vol] Urobilinogen [Mass/volume] in Urine by Test strip Normal [facility] WBC Auto (Bld) [#/Vol]Ordere d By: Pedro Parks on 04-05-2024 WBC (Bld) [#/Vol] Leukocytes [#/volume ] in Blood by Automated count 3.8-11.6 [facility] aPTT in Platelet poor plasma by Coagulation assayOrdered By: Pedro Parks on 04-05-2024 aPTT Coag (PPP) [Time] Activated partial thromboplastin time (aPTT) in platelet poor plasma by coagulation a 25.1-36.5 [facility] Comment on above: A hematocrit value g reater than 55% may lead to inaccurate results in coagulation testing. Patients having hematocrit values >55% require a special collection tube for coagulation studies. Please contact the laboratory at [phone] for redraw instructions. pH Test strip (U)Ordered By: Pedro Parks on 04-05-2024 pH (U) pH of Urine by Test strip 5.0-9.0 [facility] Provider Letteron 03-31-2024 Provider Letter Provider Letter March 31, 2024 CHANCE JACOBS [address] [place] [id number] : 1985 To Whom It May Concern, Please excuse above patient from work. Date of Illness: From: 03/24/2024 To: 04/30/24 May Return to Work On: 05/01/24 Restrictions: None Comments: Patient had a surgical procedure on 03/30/24. No work 03/24/24- 04/30/24. Return to work 05/01/24. Sincerely, [facility] Ambulatory Visit Summaryon 0 03-24-2024 Ambulatory Visit Summary Ambulatory Visit Summary CHANCE JACOBS :1985 Visit Date:03/24/2024 Ambulatory Visit Instructions Your Diagnosis Kidney stone Your Care Team Attending Physician - SYMONE OLVERA, Deangelo Funes Primary Care Physician - ILANA DELONG This Is Your Medications List Contact [...] Following Appointments Follow Up with SYMONE OLVERA, Deangelo Funes, ANNITA When: Where: [address] [place] [address]- Medications What How Much When Instructions Unchanged [...] including vitamins, herbs, eye drops, creams, and jeov-ljg-gmlqgvx medicines. ??? Any problems you or family [...] your provider tells you to. ? Taking hxqk-zpu-eodasrw medicines, vitamins, herbs, and supplements. Tests ??? [...] (more content not included)... Normal [facility] Provider Letteron 03-24-2024 Provider Letter Provider Letter March 24, 2024 CHANCE JACOBS [address] [place] [address] : 1985 To Whom It May Concern, Please excuse above patient from work. Date of Illness: From: 03/24/24 To: 04/02/24 May Return to Work On:04/03/24 Restrictions: No work 03/24/24- 04/02/24 Comments: Patient is having surgery 03/30/[address] Valente. She will be off work 03/24/24- 04/02/24. Sincerely, [facility] Dr. Deangelo Valente Normal [facility] MRI LSPINE WO CONon 04-23-19 MRI LSPINE WO CON EXAMINATION: MRI LSP INE WO CON HISTORY: Low back pain ; [...] by: CARLI RODRIGUEZ Date: 2022-04-22 16:27 Normal [facility] CT ABD/PELVIS WO CONon 04-20 CT ABD/PELVIS WO CON EXAMINATION: CT ABD /PELVIS WO CON, 04/20/2022 8:38 AM EST HISTORY: [...] by: VERITO ESPOSITO Date: 2022-04-20 09:15 Normal [facility] XR LSPINE MIN 4 VIEWSon 03-19 XR LSPINE MIN 4 VIEWS EXAMINATION: XR LS PINE MIN 4 VIEWS HISTORY: Neuritis AND/OR radiculitis [...] by: CARLI RODRIGUEZ Date: 2022-04-09 18:35 Normal [facility] MRI ANKLE RT WO CONon 2022 MRI ANKLE RT WO CON HISTORY: Chronic rig ht foot pain. Possible plantar fasciitis. MRI ANKLE [...] TORITO JOSHI Date: 2022-03-09 17:09 Normal [facility] XR FOOT ROXANA MIN 3 VIEWSon [...] VERITO ESPOSITO Date: 2022-03-04 16:29 Normal [facility] Covid-19 PCR (CVDTB)on SARS-CoV-2 (COVID-19) RNA CHICO+probe Ql (Unsp spec) Detected Critically abnormal NOT DETECTED [facility] Comment on above: Result Comment: This test is not yet approved or cleared by the [place] FDA. When there are no FDA-approved or cleared tests available, and other criteria are met, FDA can make tests available under an emergency access mechanism called an Emergency Use Authorization (EUA). The EUA for this test is supported by the [employer] Lamps[employer] Maker of Health and Human Service's (HHS's) declaration [...] longer be used). Performed By: #### [facility] #### [facility] [address] [address] [address] Rozina De La Cruz Vital Signs Date Time Vital Sign Value Performing Clinician Facility 04-05-2024 19:34-0500 Body temperature 98 [degF] Pedro Parks DO Work Phone: [facility] 04-05-2024 19:34-0500 Diastolic blood pressure 91 mm[Hg] Pedro Parks DO Work Phone: [facility] 04-05-2024 19:34-0500 Heart rate 79 /min Pedro Parks DO Work Phone: [facility] 04-05-2024 19:34-0500 Respiratory rate 18 /min Pedro Parks DO Work Phone: [facility] 04-05-2024 19:34-0500 SaO2% (BldA) [Mass fraction] 98 % Pedro Parks DO Work Phone: [facility] 04-05-2024 19:34-0500 Systolic blood pressure 130 mm[Hg] Pedro Parks DO Work Phone: [facility] 04-05-2024 10:13-0500 Body height 160.02 cm Pedro Parks DO Work Phone: [facility] 04-05-2024 10:13-0500 Body weight 72.2 kg Pedro Parks DO Work Phone: [facility] 03-24-2024 09:13-0500 Blood Pressure Location Deangelo VALENTE [facility] 03-24-2024 09:13-0500 Diastolic blood pressure 89 mm[Hg] Deangelo VALENTE [facility] 03-24-2024 09:13-0500 Heart rate 94 /min Deangelo VALENTE [facility] 03-24-2024 09:13-0500 Respiratory rate 18 /min Deangelo VALENTE [facility] 03-24-2024 09:13-0500 Systolic blood pressure 139 mm[Hg] Deangelo VALENTE [facility] 12-10-2020 15:45-0400 Body height 160.02 cm Alfredo Mckeon Other [employer] Other 12-10-2020 15:45-0400 Body mass index (BMI) [Ratio] 26.21 kg/m2 Alfredo Mckeon Other [employer] Other 12-10-2020 15:45-0400 Body weight 67.13 kg Alfredo Mckeon Other [employer] Other Encounters Encounter Date Encounter Type Care Provider Facility Start: 07-17-2024 ambulatory Deangelo Tan ty:CAMILA Adam Start: 05-18-2024 End: 05-18-2024 Orders Only Ilana Delong [employer]QUIPMENT SUPPORT SPECIALIST-WALL W[employer]ER Work Phone: [facility] Comment on above: Encounter for genera l adult medical examination without abnormal findings Encounter for screen ing for cardiovascular disorders Encounter for screen ing for other suspected endocrine disorder Start: 05-18-2024 End: 05-18-2024 Patient encounter status Ilana Delong BIOMEDICAL EQUIPMENT SUPPORT SPECIALIST-WALL WASHER [facility] Start: 04-26-2024 End: 04-26-2024 ambulatory Deangelo VALENTE Facility:[facility] Start: 04-05-2024 End: 04-05-2024 Emergency department patient visit Pedro Parks DO Work Phone: [facility] Work Phone: Start: 03-30-2024 End: 03-30-2024 ambulatory Deangelo VALENTE Facility:[id number] Start: 03-24-2024 End: 03-24-2024 ambulatory Deangelo VALENTE Facility:[facility] Start: 03-24-2024 End: 03-24-2024 Patient encounter procedure Deangelo VALENTE [facility] Start: 07-14-2023 End: 07-14-2023 ambulatory PAOLO PRINCE Not Available Start: 06-17-2023 End: 06-17-2023 ambulatory NILOER ROSELYN Not Available Start: 06-16-2023 End: 06-16-2023 ambulatory CHRISTOPHER ROSELYN Not Available Start: 06-07-2023 End: 06-07-2023 ambulatory CHRISTOPHER ROSELYN Not Available Start: 03-10-2023 End: 03-10-[address]23 [address] [place] [employer] Start: 05-07-2022 End: 05-08-2022 ambulatory NARENDRANATH LAKSHMIPATHY . Facility:[facility] Start: 04-22-2022 End: 04-23-2022 ambulatory NARENDRANATH LAKSHMIPATHY . Facility:[facility] Start: 04-20-2022 End: 04-21-[address] RICHARD VALIENTE Facility:[facility] Start: 04-09-2022 End: 04-10-2022 ambulatory CAROLINAENDRANBARBARA LAKSHMIPATHY . Facility:[facility] Start: 04-09-2022 End: 04-10-2022 ambulatory NARENDTIERRA LAROSESHMIPATHY . Facility:[facility] Start: 03-09-2022 End: 03-10-2022 ambulatory KELLY GLOVER Facility:[facility] Start: 03-04-2022 End: 2022 ambulatory KELLY Yi [facility] Facility:[facility] Start: 10-24-2021 End: 10-24-[address] RICHARD VALIENTE Facility:[facility] Start: 12-10-2020 Office outpatient vi sit 15 minutes Alfredo FORTE Gastroenterology Procedures Date Procedure Procedure Detail Performing Clinician Start: 04-05-2024 CT of urinary tract Pedro Parks DO Work Phone: Start: 10-27-2022 Microscopic observation [Identifier] in Cervix by Cyto stain Ilana Delong BIOMEDICAL EQUIPMENT SUPPORT SPECIALIST-WALL WASHER Work Phone: Start: 03-06-2021 H/O: surgery S/P nasal septoplasty Ilana Delong BIOMEDICAL EQUIPMENT SUPPORT SPECIALIST- WALL WASHER Work Phone: Start: 03-06-2021 History of tonsillectomy S/P tonsillectomy Ilana Delong AP RN-WALL WASHER Work Phone: Appendectomy Deangelo VALENTE Cholecystectomy Deangelo PRADO Colonoscopy Deangelo VALENTE History of tonsillectomy Laura VALENTE Plan of Treatment Date Care Activity Detail Author Start: 10-27-2025 Screening for malign ant neoplasm of cervix Pap Smear [facility] Start: 05-18-2024 End: 05-18-2025 CBC W Auto Differential panel - Blood CBC auto differential Lab Routine Encounter for general adult medical examination without abnormal findings Expected: 05/18/2024, Expires: 05/18/2025 [employer] Work Phone: Comment on above: Expected: 05/18/2024 , Expires: 05/18/2025 Start: 05-18-2024 End: 05-18-2025 Comprehensive metabolic 2000 panel - Serum or Plasma Comprehensive metabolic panel Lab Routine Encounter for general adult medical examination without abnormal findings Expected: 05/18/2024, Expires: 05/18/2025 [employer] Work Phone: Comment on above: Expected: 05/18/2024 , Expires: 05/18/2025 Start: 05-18-2024 End: 05-18-2025 Lipid 1996 panel - Serum or Plasma Lipid profile Lab Routine Encounter for screening for cardiovascular disorders Expected: 05/18/2024, Expires: 05/18/2025 [employer] Work Phone: Comment on above: Expected: 05/18/2024 , Expires: 05/18/2025 Start: 05-18-2024 End: 05-18-2025 TSH with Reflex TSH with Reflex Lab Routine Encounter for screening for other suspected endocrine disorder Expected: 05/18/2024, Expires: 05/18/2025 [employer] Work Phone: Comment on above: Expected: 05/18/2024 , Expires: 05/18/2025 Start: 04-05-2024 Bacteria identified in Urine by Culture Urine Culture [facility] Start: 04-05-2024 Urine culture [facility] Start: 10-17-2023 Influenza vaccination Influenza Vacc ine [facility] Start: 02-26-2023 Adult BMI Screening Adult BMI Screen ing [facility] Start: 2005 DTaP,Tdap and Td Vaccines (1 - Tdap) DTaP,Tdap and Td Vaccines (1 - Tdap) [facility] Start: 1998 Depression Screening Depression Scre ening [facility] Start: 1998 Tobacco Screening Tobacco Screening [facility] Patient Education Urinary tract infection - Discharge instructions [facility] Work Phone: Patient referral [facility] Work Phone: Immunizations Immunization Date Immunization Notes Care Provider Fa cilibecky 06-19-2020 COVID-19 mRNA-5743 (Moderna) Pedro Parks DO Work Phone: [facility] 05-22-2020 COVID-19 mRNA-1273 (Moderna) Pedro Parks DO Work Phone: [facility] 05-25-2016 Toradol per 15 mg Alfredo Perrydesmond Other [employer] Other Payers Date Payer Category Payer Self-pay 2024 Unknown [id number] 2023 Unknown [id number] 2020 Blue [employer] Blue Shie ld Managed Care - Other ANTHEM [id number] 2019 Worker's Comp, Other (unspecified) WORKER'S COMPENSATION [id number] 2019 Commercial Managed C are - PPO [employer] Member Subscriber Plan / Payer (Effective 2019-Present) Name: Chance Chino Relation to Subscriber: Self Name: Chance Chino Payer ID: Not on file Type: Not on file Address: [place] [id number] 1985 Unknown [id number] [id number] .593 1985 Unknown [id number] 2.16.840.1.738920.3.579.2 .593 1985 Unknown [id number] 2.16.840.1.380667.3.579.2 .593 1986 Unknown [id number] 2.16.840.1.790320.3.579.2 .593 1986 Unknown [id number] 2.16.840.1.393757.3.579.2 .593 1986 Unknown [id number] 2.16.840.1.954422.3.579.2 .593 1986 Unknown [id number] 2.16.840.1.081308.3.579.2 .593 1986 Unknown [id number] 2.16.840.1.857561.3.579.2 .593 1986 Unknown [id number] 2.16.840.1.944535.3.579.2 .1259 1986 Unknown [id number] 2.16.840.1.785861.3.579.2 .1259 1986 Unknown [id number] 2.16.840.1.303299.3.579.2 .9 1986 Unknown [id number] 2.16.840.1.124590.3.579.2 .1259 1986 Unknown [id number] 2.16.840.1.711013.3.579.2 .727 1986 Unknown [id number] 2.16.840.1.318513.3.579.2 .727 1986 Unknown [id number] 2.16.840.1.387055.3.579.2 .727 1985 Unknown [id number] 2.16.840.1.834612.3.579.2 .727 1958 [facility]66 [id number] [id number] [facility] [id number] Unknown [id number] [id number] .531 Social History Date Type Detail Facility Unknown if ever smoked [employer] Other Start: 03-28-2020 End: 02-26-[address] [facility] Start: 02-26-2022 End: 03-24-2024 Tobacco smoking status Never smoked tobacco (finding) [facility] Start: 09-20-2014 End: 04-05-2024 Sex Female (finding) [facility] Start: 1985 Sex Assigned At Female F [facility] Start: 02-26-2022 Tobacco use and exposure Smokeless tobacco non-user [facility] Start: 02-26-2022 Alcoholic beverage intake Ex-drinker (finding) [facility] Start: 03-28-2020 End: 02-26-2022 History of Social function [facility] Adolescent depressio n screening assessment 0 [facility] Start: 1985 Sex assigned at Not on file [facility] NEGATED: Highlighted row [facility] Functional Status Date Assessment Result Facility 03-24-2024 Functional Status N/A [facility] Clinical Notes 12-10-2020 to 04-26-2024 Note Date & Type Note Facility 04-26-2024 Note Patient Education Nephrology Dietary Guidelines to Help Prevent Kidney Stones Kidney stones are deposits of minerals and salts that form inside your kidneys. Your risk of developing kidney stones may be greater depending on your diet, your lifestyle, the medicines you take, and whether you have certain medical conditions. Most people can lower their risks of developing kidney stones by following these dietary guidelines. Your dietitian may give you more specific instructions depending on your overall health and the type of kidney stones you tend to develop. What are tips for following this plan? Reading food labels ??? Choose foods with no salt added or low-salt labels. Limit your salt (sodium) intake to less than 1,500 mg a day. ??? Choose foods with calcium for each meal and snack. Try to eat about 300 mg of calcium at each meal. Foods that contain 200?500 mg of calcium a serving include: ? 8 oz (237 mL) of milk, huqsuhe-ckbdkvskjxpj-xxhae milk, and calcium-fortifiedfruit juice. Calcium-fortified means that calcium has been added to these drinks. ? 8 oz (237 mL) of kefir, yogurt, and soy yogurt. ? 4 oz (114 g) of tofu. ? 1 oz (28 g) of cheese. ? 1 cup (150 g) of dried figs. ? 1 cup (91 g) of cooked broccoli. ? One 3 oz (85 g) can of sardines or mackerel. Most people need 1,000?1,500 mg of calcium a day. Talk to your dietitian about how much calcium is recommended for you. Shopping ??? Buy plenty of fresh fruits and vegetables. Most people do not need to avoid fruits and vegetables, even if these foods contain nutrients that may contribute to kidney stones. ??? When shopping for convenience foods, choose: ? Whole pieces of fruit. ? Pre-made salads with dressing on the side. ? Low-fat fruit and yogurt smoothies. ??? Avoid buying frozen meals or prepared deli foods. These can be high in sodium. ??? Look for foods with live cultures, such as yogurt and kefir. ??? Choose high-fiber grains, such as whole-wheat breads, oat bran, and wheat cereals. Cooking ??? Do not add salt to food when cooking. Place a salt shaker on the table and allow each person to add their own salt to taste. ??? Use vegetable protein, such as beans, textured vegetable protein (TVP), or tofu, instead of meat in pasta, casseroles, and soups. Meal planning ??? Eat less salt, if told by your dietitian. To do this: ? Avoid eating processed or pre-made food. ? Avoid eating fast food. ??? Eat less animal protein, including cheese, meat, poultry, or fish, if told by your dietitian. To do this: ? Limit the number of times you have meat, poultry, fish, or cheese each week. Eat a diet free of meat at least 2 days a week. ? Eat only one serving each day of meat, poultry, fish, or seafood. ? When you prepare animal proteins, cut pieces into small portion sizes. For most meat and fish, one serving is about the size of the palm of your hand. ??? Eat at least five servings of fresh fruits and vegetables each day. To do this: ? Keep fruits and vegetables on hand for snacks. ? Eat one piece of fruit or a handful of berries with breakfast. ? Have a salad and fruit at lunch. ? Have two kinds of vegetables at dinner. ??? You may be told to limit foods that are high in a substance called oxalate. These include: ? Spinach (cooked), rhubarb, beets, sweet potatoes, and English chard. ? Peanuts. ? Potato chips, dutch fries, and baked potatoes with skin on. ? Nuts and nut products. ? Chocolate. ??? If you regularly take a diuretic medicine, make sure to eat at least 1 or 2 servings of fruits or vegetables that are high in potassium each day. These include: ? Avocado. ? Banana. ? [place], prune, carrot, or tomato juice. ? Baked potato. ? Cabbage. ? Beans and split peas. Lifestyle ??? Drink enough fluid to keep your urine pale yellow. This is the most important thing you can do. Spread your fluid intake throughout the day. ??? If you drink alcohol: ? Limit how much you have to: ? 0?1 drink a day for women who are not . ? 0?2 drinks a day for men. ? Know how much alcohol is in your drink. In the [place] one drink equals one 12 oz bottle of beer (355 mL), one 5 oz glass of wine (148 mL), or one 1? oz glass of hard liquor (44 mL). ??? Lose weight if told by your health care provider. Work with your dietitian to find an eating plan and weight loss strategies that work best for you. General information ??? Talk to your health care provider and dietitian about taking daily supplements. Depending on your health and the cause of your kidney stones, you may be told: ? Do not take high-dose supplements of vitamin C (1,000 mg a day or more). ? To take a calcium supplement. ? To take a daily probiotic supplement. ? To take other supplements such as magnesium, fish oil, or vitamin B6. ??? Take amlj-mdw-jqzzxve and prescription medicines only as told by your health (more content not included)... [facility] 04-05-2024 Radiology Diagnostic study note [facility] Main [place] [address] [place] [address] CT Scan Report Signed Patient: Chance Jacobs MR# : [id number] : 1985 Acct:[id number] Age/Sex: 39 / F ADM Date: 5 Loc: ER Room: Type: [facility] ER Attending Dr: Copies to: Pedor Parks DO~ Ordering Provider: Pedro Parks DO Date of Service: 04/05/24 CT/CT urogram: recent stent placement, hematuria today CT urogram TECHNIQUE: Axial imaging with 2-D reconstruction.90 cc of Isovue-300. The CT exam was performed using one or more the following dose reduction techniques: Automated exposure control, adjustment of the MA and/or Kv according to patient size, or use of the iterative reconstruction technique. COMPARISON: None History: Left ureteral stent placement. Hematuria. LIMITATIONS: None LOWER THORAX Unremarkable LIVER: Unremarkable GALLBLADDER: Cholecystectomy clips identified. BILE DUCTS: No dilatation SPLEEN: Unremarkable PANCREAS: Unremarkable ADRENAL GLANDS: Unremarkable KIDNEYS:Adequate position of left ureteral stent with proximal tip in the lower pole moiety.. 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 AORTA: No abdominal aortic aneurysm identified. RETROPERITONEUM: No significant retroperitoneal abnormalities identified. MESENTERY:Unremarkable SMALL BOWEL: The small bowel loops are nondistended. APPENDIX: Appendectomy changes identified. COLON: Mild constipation URINARY BLADDER: Irregular urinary bladder wall thickening. Thickening most prevalent in the superior left portion of urinary bladder. REPRODUCTIVE SYSTEM: Reproductive structures are unremarkable. PNEUMOPERITONEUM: None PERITONEAL FLUID:None BONY STRUCTURES: Unremarkable ABDOMINAL WALL: Unremarkable CT/CT urogram IMPRESSION: Focal wall thickening of the superior left portion of the urinary bladder. May represent infectious or inflammatory etiology. Correlate with cystoscopy findings to exclude other etiologies. Adequate position of left ureteral stent. Duplication of the left ureteral stent. Proximal end of the stent is in the lower pole moiety. Impression dictated by: Bob Mead M.D.04/05/2024 3:00 PM Dictation Location: [facility]-19 Transcribed By: STACY 04/05/24 1500 Dictated By: Bob Mead DO 04/05/24 1450 Signed By: 04/05/24 1500 [facility] 03-24-2024 Hospital Discharg e instructions Patient Education [...] including vitamins, herbs, eye drops, creams, and tqto-ooq-xuoupgt medicines. Any problems you or family members [...] unless your provider tells you to. ?Taking ljzt-bgh-vbztfqk medicines, vitamins, herbs, and supplements. Tests You [...] provider. Document Revised: 10/02/2022 Document Reviewed: 10/02/2022 [employer] Patient Education 2023 [employer]. Follow Up Care 03/22/2024 15:40:31 With:SYMONE OLVERA, Deangelo Funes, URL Address: [address] [place], [place] [id number]- When: Unknown [facility] 03-24-2024 Note Urology Office/Clini c Note Chief [...] given Flomax and Toradol. ZOHAIB completed at [facility] on 03/23/24. - are faxing over [...] When Contact Information SYMONE OLVERA, Deangelo Funes, URL [facility] [place] [id number]- Additional Instructions: Schedule L laser litho Patient Education Laser Therapy for Kidney Stones I, Irasema Amato, personally scribed for Dr. Valente on 03/24/2024 [...] Medicat (more content not included)... [facility] Comment on above: Result Comment: Elec tronically Signed By: Deangelo VALENTE MD\.br\Date and Time Signed: 03/24/24 10:08 EST\.br\Electronically Co-Signed By: Irasema Amato.br\Date and Time Co-Signed: 03/24/24 10:06 EST 03-24-2024 Note Patient Education Nephrology Laser Therapy [...] including vitamins, herbs, eye drops, creams, and caek-pyl-wbjhmda medicines. ??? Any problems you or family [...] your provider tells you to. ? Taking bgjq-ljr-wnfhlch medicines, vitamins, herbs, and supplements. Tests ??? [...] yo (more content not included)... [facility] 05-07-2022 Note CONSULTATION CONSULTATION DATE: 05/07/2022 TO: [...] plan. Her Oswestry scale was 10. [facility] 04-09-2022 Note PAIN MANAGEMENT CONS ULTATION CONSULTATION [...] after she undergoes her imaging studies. [facility] 12-10-2020 Evaluation note Encounter Date Diagnosis Assessment Notes Nov, Abdominal pain (ICD-10 - R10.9) Nov, Nausea and vomiting (ICD-10 - R11.2) Nov, Diarrhea (ICD-10 - R19.7) PT GIVEN COPY OF LOW FODMAP DIET RTO 6 WEEKS Nov, Hiatal hernia (ICD-10 - K44.9) [employer] Other Evaluation + Plan note No data available for this section [facility] evaluation noteNo assessment information available [facility] Work Phone: Evaluation note* Diagnosis Encounter for general adult medical examination without abnormal findings documented in this encounter [employer] [facility] note* Diagnosis Encounter for screening for cardiovascular disorders documented in this encounter [facility] note* Diagnosis Encounter for screening for other suspected endocrine disorder documented [facility] this encounter [facility] Narrative - Reported* Type Description Date Medical History anxiety Medical History asthma Surgical History cholecystectomy 2007 Surgical History oral surgery Surgical History appendectomy 2005 Surgical History KIDNEY SCRAPPED OUT Hospitalization History see above health history [employer] Other Hospital Discharge instructions Additional Instructions Follow-up with your urologist Return to ED follow-up worsening symptoms or [facility] Work Phone: InstructionsNot on filedocumented in this encounter [facility] No data available for this section [facility] Summary Purpose Family History Relationship Condition Age at Onset Recorded Date/T sanjay father Malignant neoplasm of colon Unknown History of malignant neoplasm of kidney U nknown Malignant neoplasm of liver Unknown mother Asthma Unknown father Malignant neoplasm Unknown Advance Directives Advance Directive Response Recorded Date/ Time Advance Directives No March 12:13pm Chief Complaint and Reason for Visit Chief Complaint Admit Date blood in urine April 05, 2024 9:38am Additional Source Comments REASON FOR VISIT (unrecogniz ed section and content) colonoscopy follow up on 10-16 for Abdominal pain, nausea, vomiting and diarrhea. INFORMATION SOURCE (unrecogn ized section and content) DATE CREATED AUTHOR 05/10/2022 [facility] DATE CREATED AUTHOR AUTHOR'S ORGANIZ ATION 03/12/2023 [employer] DATE CREATED AUTHOR AUTHOR'S ORGANIZ ATION 07/15/2023 [facility] EPIC DATE CREATED AUTHOR AUTHOR'S ORGANIZ ATION 04/15/2024 [facility] DATE CREATED AUTHOR AUTHOR'S ORGANIZ ATION 04/28/2024 [facility] Patient Care team informatio n (unrecognized section and content) Team Status: Active Member Role Status Dates Ilana Delong APRN Primary Care Provider Active Team Status: Inactive Member Role Status Dates Pedro Parks DO Emergency Provider Active Start: April 05, 2024 End: April 05, 2024 Ilana Delong APRN Primary Care Provider Active Start: April 05, 2024 End: April 05, 2024 Apprentice Technician Relationship Specialty Start Date End Date Richard Valiente DO PCP - General Family Medicine 09/17/19 Goals (unrecognized section and content) Goals may be documented in a n alternate section FOR RECORDS PERTAINING TO PATIENTS WHO ARE [...] BE BASED ON THE PRIMARY CLINICAL RECORDS. [facility] [employer] [facility]. provides no warranty or guarantee of the accuracy or completeness of information in this document.
[2024-05-23 10:32] LABS: Calcium 9.1 mg/dL (8.5-10.1); Carbon Dioxide 25.5 mmol/L (21.0-32.0); Chloride 105 mmol/L (98-107); Estimated GFR (African America >60 (>=60 mL/min/1.73m^2); Estimated GFR (Non-African Ame >60 (>=60 mL/min/1.73m^2); Phosphorus 3.2 mg/dL (2.6-4.7); Sodium 139 mmol/L (136-145); Uric Acid 4.2 mg/dL (2.6-6.0)
[2024-05-23 10:56] LABS: Calcium Urine Random 7.8 mg/dL (5.1-21.0); Creatinine Urine Random 74.77 mg/dL (20.00-300.00); Sodium Urine Random 117 mmol/L (30-90)
[2024-05-23 10:59] LABS: Calcium 24 Hour Urine 122.9 mg/24hr (100.0-300.0); Creatinine 24 Hour Urine 1177.63 mg/24 hr (800.00-1800.00); Sodium 24 Hour Urine 184 mmol/24h (40-220); Total Volume 24 Hour Urine 1575 mL/24hr
[2024-05-24 10:13] LABS: PTH, Intact 47 pg/mL (15-65)
[2024-05-24 11:08] LABS: Uric Acid, Urine 31.9 mg/dL (Not Estab.); Uric Acid,Urine 24hr 502.4 mg/24 hr (173.7-902.1)
[2024-05-24 13:09] LABS: Magnesium,Urine 24hr 94.5 mg/24 hr (12.0-293.0); Phosphorus, Urine 45.2 mg/dL (Not Estab.); Phosphorus,Urine 24h 712 mg/24 hr (261-1078)
[2024-05-24 14:08] LABS: Citric Acid, U, 24hr 550 mg/24 hr (320-1240); Citric Acid, Urine 349 mg/L (Undefined)
[2024-05-25 08:09] LABS: Oxalates, Urine 11 mg/L (Undefined); Oxalates, Urine 24hr 17 mg/24 hr (4-31)
== END 2024-05-23 09:36 | disposition home or self-care (01) ==
LOC: LAB 09:35
PROVIDERS: PCP Nurse Practitioner; Visit Provider Urology
DX: N20.0 Calculus of kidney (principal)
CPT/HCPCS: 36415; 82310; 82340; 82374; 82435; 82507; 82565; 82570; 83735; 83945; 83970; 84100; 84105; 84295; 84300; 84520; 84550; 84560

== ENCOUNTER 2024-12-15 15:19 | Emergency (ER) | payer OTHER, SELFPAY ==
--- OUTSIDE RECORDS SUMMARY | 2024-11-02 06:30 | XMS_ITS ---
Author Organization [facility] vices Address [address] [place], [place] [address] [place], [place] [id number] Care Team Providers Care Media Services Specialist Name Role Phone Lyudmila Zamora Primary Care Provider REASON FOR VISIT Migraine - FMLA Paperwork Social History Sex Assigned At : Social History Observation Description Sex Assigned At Female Encounters Encounter Location Date Provider Diagnosis [address] [id number] 11/02/2024 Lyudmila Zamora Plan Of Treatment Next Appt Details Provider Name:Kvng Sanchez, 01/01/2025 01:00:00 PM, [address] [place], [place], [id number], Progress Notes * NICOLEHunterGris ABREUDOB:[birth year] (39 yo F)Acc No.[id number]:11/02/2024 Medical Note Patient: Shantel GUERRIERGris ABREU :?Lydumila Zamora APRN, FNP-CDOB:1985???Age: 39 Y???Sex:FemaleDate:11/02/2024Phone:[phone]:[address] [place] [address] Subjective: * Chief Complaints: * 1 . Migraine - FMLA Paperwork. * Medical History: Objective: * Vitals: Assessment: Plan: * Treatment: * Billing Information: * Visit Code: * Procedure Codes: * Electronic signature of AYLA Damon on 12/15/2024 at 03:32 PM EDT Sign off status: Pending * Provider: Ladan Zamora APRN, FNP-C Date: 0 11/02/2024 Generated for Printing/Faxing/eTransmitting on:?12/15/2024 03:32 PM EDT
--- OUTSIDE RECORDS SUMMARY | 2024-11-15 04:30 | XMS_ITS ---
Author Organization [facility] vices Address [address] [place] [address] [place], [place] [id number] Care Team Providers Care Studio Designer Name Role Phone Lyudmila Zamora Primary Care Provider [phone] Ilana Carmona [phone] REASON FOR VISIT 6m migraines Social History Sex Assigned At : Social History Observation Description Sex Assigned At Female Encounters Encounter Location Date Provider Diagnosis [address] [id number] 11/15 Ilana Carmona Plan Of Treatment Next Appt Details Provider Name:Kvng Sanchez, 01/01/2025 01:00:00 PM, [address] [place], [place], [phone], Progress Notes * ARLENEGrisDOB:[birth year] (39 yo F)Acc No.[id number]:11/15/2024 Medical Note Patient: Gris ESPAÑA :?Ilana CarmonaDOB:1985???Age:39 Y???Sex: FemaleDate:11/15/2024Phone:[phone]:[address] [place], [place] [id number]:Lyudmila Zamora Subjective: * Chief Complaints: * 1 . 6m migraines. * Medical History: Objective: * Vitals: Assessment: Plan: * Treatment: * Billing Information: * Visit Code: * Procedure Codes: * Electronic signature of DIANA Stokes on 12/15/2024 at 03:32 PM EDTSign off status: Pending * Provider: Renan Carmona Date: 1 Generated for Printing/Faxing/eTransmitting on:?12/15/2024 03:32 PM EDT
[2024-12-15 15:25] VITALS: BP 137/96; PULSE 98; TEMP 36.5; O2SAT 98; BMI 29.2
[2024-12-15 15:31] VITALS: O2SAT 99
--- OUTSIDE RECORDS SUMMARY | 2024-12-15 15:33 | XMS_ITS | Clinical Summary ---
Author Organization [facility] Address [address] [place] [address] Care Team Providers Care Marble Polisher Name Role Phone Richard Epstein MD Primary Care Provider [phone] Ezequiel Pickering DO Unavailable [phone] Allergies Active AllergyReactionsCriticalityNoted UbjwUwtxcvspLuahocqroyvAhbcGas65/22/2024 Medications MedicationSigDispense QuantityRefillsLast FilledStart DateEnd DateStatus baclofen (Lioresal) 10 MG tablet Take by mouth if needed for muscle spasmsActive albuterol HFA 90 mcg/act inhaler INHALE 1 PUFF INTO THE LUNGS EVERY 4 HOURS NEEDED FOR 30 DAYSActive rizatriptan (Maxalt) 5 MG tablet Indications:Episodic migraineTake 1 tablet (5 mg) by mouth 1 (one) time if needed for migraine (may repeat x1) May repeat in 2 hours if unresolved. Do not exceed 30 mg in 24 hours. 9 tablet 4Active Active Problems ProblemNoted DateDiagnosed DateNerve entrapment syndrome of right foot06/05/2023 Entrapment neuropathy of left lower icgjdrsey29/20/5998Wbnxlhsn28/20/2024 Social History Tobacco UseTypesPacks/DayYears UsedDateSmoking Tobacco: NeverSmokeless Tobacco: Never Tobacco Cessation:Counseling Given: Not Answered Alcohol UseStandard Drinks/WeekCommentsNever0 (1 standard drink = 0.6 oz pure alcohol)CommentsUnknownSex and Gender InformationValueDate RecordedSex Assigned at BirthNot on fileLegal MgjOcbpkk90/15/2023 8:06 PM EDTGender Identity Not on fileSexual OrientationNot on file Last Filed Vital Signs Vital SignReadingTime TakenCommentsBlood Nxdwdavo824/7705 9:49 AM EDT Gciqy7099 9:49 AM EDTTemperature--Respiratory Bzvl668706/16/2023 9:47 AM EDTOxygen Saturation--Inhaled Oxygen Concentration--Dteekn47.8 kg (145 lb) 07/14/2023 9:49 AM HYXJbgovw383.6 cm (5' 4 )07/14/2023 9:49 AM EDTBody Mass Index24.8907/14/2023 9:49 AM EDT Plan of Treatment Not on file Insurance Care Teams Team MemberRelationshipSpecialtyStart DateEnd Richard Epstein MD PCP - GeneralFamily Medicine05/25/23 Ezequiel Pickering DO [address] [place] [address] Referring PhysicianNeurology05/25/23
--- OUTSIDE RECORDS SUMMARY | 2024-12-15 15:33 | XMS_ITS | Patient Health Record ---
Author Organization [facility] [place] Address [address] [place] [address] Support Name Relationship Address Phone Savanna Baugh Emergency Contact Unknown Anne Dela Cruz Guarantor Unknown Reason For Referral No Information Plan Of Treatment No Information Insurance Providers Payer Name Payer Address Payer Phone Subscriber Number Group Number Insured Name Patient Relationship to Insured Coverage Start Date Coverage End Date SELF PAY ON PATIENT [employer] Edison Dela Cruz - patient's relationship to the insured is other than any listed
--- OUTSIDE RECORDS SUMMARY | 2024-12-15 15:33 | XMS_ITS | CCD ---
Author Organization [facility] CliniSywa Care Team Providers Care Bank Teller Name Role Phone Alfredo Mckeon Unavailable HOUSE, DR PERES Admitting Unavailable HOUSE, DR PERES Attending Unavailable PITTS[place], DR PERES Primary Care Unavailable [place]IL[place], DR VERITO Lim Consulting Unavailable HOUSE, DR PERES Consulting Unavailable LAKSHMIPATHY ., NARENDRANATH Admitting Yue vailable LAKSHMIPATHY ., NARENDRANBARBARA Attending Yue vailable PITTSFIELD, DR PERES Primary Care Unavailable PAYALEBHLODEN, DR CARLI Funes Consulting Unavailable LAKSHMIPATHY ., CAROLINAENDRANBARBARA Consulting Yue vailable HOUSE, DR PERES Admitting Unavailable HOUSE, DR PERES Attending Unavailable HOUSE, DR PERES Primary Care Unavailable P[place]TS[place], DR PERES Consulting Unavailable HIGHLANDER, KELLY Yi Admitting Unavailable HIGHLANDER, KELLY Yi Attending Unavailable HOUSE, DR PERES Primary Care Unavailable [place], DR VERITO Lim Consulting Unavailable HIGHLANDER, KELLY [...] PERES Primary Care Unavailable PAYALHOLDEN, DR CARLI R Consulting Unavailable LAKSHMIPATHY ., NARENDRANATH Consulting Yue vailable CASSIA DEMPSEY Attending Unavailable CASSIA DEMPSEY Attending Unavailable CASSIA DEMPSEY Attending Unavailable PAOLO PRINCE Attending Unavailable SINDI [place] Primary Care Physician Pedro Parks DO Emergency Provider Sindi [employer] OPERATOR, [place] Primary Care Provider Pedro Parks Attending Unavailable Pedro Parks Admitting Unavailable [place], [place] Primary Care Unavailable Richard Epstein DO Primary Care Provider SINDI, [place] Primary Care Unavailable VALENTE, Deangelo R Attending Unavailable SINDI, [place] Primary Care Unavailable VALENTE, Deangelo R Attending Unavailable SINDI, [place] Primary Care Unavailable VALENTE, Deangelo R Attending Unavailable SINDI, [place] Primary Care Unavailable VALENTE, Deangelo R Attending Unavailable SINDI, [place] Primary Care Unavailable VALENTE, Deangelo R Attending Unavailable SINDI, [place] Primary Care Unavailable VALENTE, Deangelo R Attending Unavailable SINDI, [place] Primary Care Unavailable VALENTE, Deangelo R Attending Unavailable SINDI, [place] Primary Care Unavailable VALENTE, Deangelo R Attending Unavailable VALENTE, Deangelo R Attending Unavailable SINDI, [place] Primary Care Unavailable Allergies Allergy ClassificationReported Allergen(s)Allergy TypeDate of OnsetReaction(s) Facility (8 sources)lamoTRIgine; Translations: [lamotrigine]Drug Bzvmyqz00-80-5561hfac, Eruption of skin (disorder)[facility] (2 sources)lamoTRIgine; Translations: [LaMICtal]Drug Yovvefq18-71-8993Inj [facility] Repository (4 sources)pork allergenic extract; Translations: [Pork]Drug AllergyUnknown (qualifier value)[facility] (1 source)lamoTRIgineDrug Tupyixa16-32-1295[facility] Medications Current Medications MedicationDrug Class(es)DatesSig (Normalized)Sig (Original)acetaminophen 325 mg / HYDROcodone bitartrate 5 mg oral tablet (1 source)Opioid AgonistStart: 56-70-2937yluq 1 tablet by mouth every six hours as needed for painHydrocodone-Acetaminophen 5-325 mg tablet Active 1 TAB PO Every 6 hours as needed for pain 2024 12:00amacetaminophen 325 mg / oxyCODONE hydrochloride 5 mg oral tablet (1 source)Opioid AgonistStart: 29-87-0595nxzx 1 tablet by mouth every four to six hours as needed for painOxycodone-Acetaminophen (Percocet) 5-325 mg tablet Active 1 TAB PO EVERY 4-6 HOURS as needed for pain 10 3 April 05, 2024 [id number] 200 actuat albuterol 0.09 mg/actuat metered dose inhaler (6 sources)beta2-Adrenergic AgonistStart: 03-61-6327blwn 2 puff(s) by inhalation every four hours as neededAlbuterol Sulfate HFA 108 (90 Base) MCG/ACT 2 puffs as needed Inhalation every 4 hrs PRN Apr, ActiveStart: 07-14-2019 albuterol Refills(s) 0 Start Date: 07/14/19 Status: Orderedtake 2 puff(s) by inhalation every six hours as needed for wheezingalbuterol (PROVENTIL HFA;VENTOLIN HFA) 90 mcg/actuation inhaler Inhale 2 puffs every 6 (six) hours as needed for wheezing. Activeazelastine hydrochloride 0.137 mg/actuat metered dose nasal spray (4 sources)Histamine-1 Receptor AntagonistStart: 31-81-1626exky 2 spray(s) nasal route in the morningazelastine (ASTELIN) 137 mcg (0.1 %) nasal spray Indications: Allergic rhinitis, unspecified seasonality, unspecified trigger Administer 2 sprays into each nostril in the morning and 2 sprays before b edtime. Use in each nostril as directed. 30 mL 5 11/19/2021 Activecephalexin 500 mg oral capsule (1 source)Cephalosporin AntibacterialStart: 10-68-5690fxhc 1 capsule by mouth every six hoursCephalexin 500 mg capsule Active 500 MG PO Q6H 28 7 April 05, 2024 12:00amcetirizine hydrochloride 10 mg oral tablet (2 sources)Histamine-1 Receptor AntagonistStart: 23-56-7176billxxlhbr 10 mg Tab 10 mg = 1 tab(s), Refills(s) 0 Start Date: 08/14/24 Status: Ordered Repeat numbe r: 1colestipol hydrochloride 1000 mg oral tablet (1 source)Bile Acid SequestrantStart: 64-12-7789pdkh 2 tablets by mouth every twenty-four hoursColestipol HCl 1 GM 2 tablets Orally Once a day for 30 day(s) Nov, Activedoxycycline hyclate 100 mg oral tablet (1 source)Tetracycline-class DrugStart: 28-35-8969osva 1 tablet by mouth twice dailyDoxycycline Hyclate 100 mg tablet Active 100 MG PO Twice daily April 05, 2024 12:00amfexofenadine hydrochloride 180 mg oral tablet (4 sources)Histamine-1 Receptor AntagonistStart: 22-77-2557bmgt 1 tablet by mouth once daily as neededfexofenadine (ROD) 180 mg tablet Indications: Allergic rhinitis, unspecified seasonality, unspecified trigger Take 1 tablet (180 mg total) by mouth daily as needed (Allergies). 30 tablet 11 02/26/2022 Activeketorolac tromethamine 10 mg oral tablet (3 sources)Nonsteroidal Anti-inflammatory Drug, Cyclooxygenase InhibitorStart: 54-98-0829plssflfzq 10 mg Tab 10 mg = 1 tab(s), Refills(s) 0 Start Date: 05/24/24 Status: Ordered Repeat number: 1Start: 78-28-3116xstg 1 tablet by mouth four times dailyKetorolac 10 mg tablet Active 10 MG PO Four times daily April 05, 2024 12:00amStart: 93-60-6357tlxsotutr 10 mg, Oral, Refills(s) 0 Start Date: 03/24/24 Status: Orderedlithium carbonate 300 mg extended release oral tablet (6 sources)Start: 05-82-2804rnio 1 tablet by mouth once dailyLithium Carbonate 300 mg Tablet Extended Release Active 300 MG PO Daily October 28, 2020 11:00pmtake 1 tablet by mouth once dailylithium carbonate 300 mg tablet Take 1 tablet (300 mg total) by mouth nightly. ActiveLithium Carbonate ER 300 MG Orally Twice a day Activemethenamine hippurate 1000 mg oral tablet (1 source)Start: 08-14-2024 End: 83-33-0705taif 1 tablet by mouth twice dailymethenamine hippurate 1 g oral tablet 1 gm = 1 tab(s), Oral, BID, X 30 day(s), # 60 tab(s), Refills(s) 11, Pharmacy: [facility]/pharmacy #[id number], 160, cm, 08/14/24 11:34:00 EDT, Height/Length Dosing, 74.4, kg, 08/14/24 11:34:00 EDT, Weight Dosing Start Date: 08/14/24 Stop Date: 08/09/25 Status: Ordered Quantity: 60.0 Unit: tab(s) Repeat number: 12 Indications: Dysuria;methocarbamol 750 mg oral tablet (1 source)Muscle RelaxantStart: 15-37-2143ehnirasedqjrm 750 mg Tab 1,500 mg = 2 tab(s), Refills(s) 0 Start Date: 05/24/24 Status: Ordered Repeat number: 124 hr mirabegron 50 mg extended release oral tablet (1 source)beta3-Adrenergic AgonistStart: 45-96-2018rfdz 1 tablet by mouth once dailyMirabegron 50 mg tablet extended release 24 hr Active 50 MG PO Daily April 05, 2024 12:00ammontelukast 10 mg oral tablet (4 sources)Leukotriene Receptor AntagonistStart: 23-61-1363tqqu 1 tablet by mouth in the morningmontelukast (SINGULAIR) 10 mg tablet Indications: Allergic rhinitis, unspecified seasonality, unspecified trigger Take 1 tablet (10 mg total) by mouth in the morning. 30 tablet 11 07/29/2021 Activemupirocin 0.02 mg/mg topical ointment (4 sources)RNA Synthetase Inhibitor AntibacterialStart: 81-45-2021qlwnnqxgv (BACTROBAN) 2 % ointment Applied intranasally bilaterally 2 times daily 15 g 01/07/2021 Activeondansetron 4 mg disintegrating oral tablet (4 sources)Serotonin-3 Receptor AntagonistStart: 92-28-5331bpbomyphxvn 4 mg Dis Tab 4 mg = 1 tab(s), Refills(s) 0 Start Date: 05/24/24 Status: Ordered Repeat num liu: 1Start: 10-09-6479Fkpyrjufqeb 4 mg tablet,disintegrating Active 4 MG TRANSLINGU Every 6 hours as needed for nausea and vomiting April 05, 2024 12:00amStart: 41-82-6515Kpwdkqtlyua Hcl 4 mg tablet Active 4 MG PO every 6 to 8 hours as needed for nausea and vomiting April 05, 2024 12:00am risperiDONE 1 mg oral tablet (1 source)Atypical AntipsychoticStart: 68-31-6219zbmrlhgsivp 1 mg Tab 1 mg = 1 tab(s), Refills(s) 0 Start Date: 11/15/24 Status: Ordered Repeat number: 1 sertraline 25 mg oral tablet (4 sources)Serotonin Reuptake Inhibitortake 1 tablet by mouth once daily sertraline (ZOLOFT) 25 mg tablet Take 1 tablet (25 mg total) by mouth nightly. seasonal Activesod mnqnm-lrfccx-tqqnup bottle (NEILMED SINUS RINSE COMPLETE) packet with rinse device nasal solution (4 sources)Start: 14-73-6274zxkq 1 dose nasal route twice dailysod avpxf-mblvkm-idsfml bottle (NEILMED SINUS RINSE COMPLETE) packet with rinse device nasal solution Administer 1 packet into each nostril 2 (two) times a day. 60 packet 01/07/2021 Activetamsulosin hydrochloride 0.4 mg oral capsule (4 sources)alpha-Adrenergic BlockerStart: 16-28-2815fjij 1 capsule by mouth once dailytamsulosin 0.4 mg Cap 0.4 mg = 1 cap(s), Oral, Daily, # 30 cap(s), Refills(s) 3, Pharmacy: [facility]/pharmacy #[id number], 160, cm, 08/14/24 11:34:00 EDT, Height/Length Dosing, 74.4, kg, 08/14/24 11:34:00 EDT, Weight Dosing Start Date: 08/14/24 Status: Ordered Quantity: 30.0 Unit: cap(s) Repeat number: 4 Indicat ions: Calculus of kidney;Start: 03-01-4808xred 1 capsule by mouth once daily Tamsulosin 0.4 mg capsule Active 0.4 MG PO Daily April 05, 2024 12:00am Start: 17-38-1114ujgr 1 capsule by mouth twice dailyFlomax 0.4 mg Cap 0.4 mg = 1 cap(s), Oral, BID, # 60 cap(s), Refills(s) 1, Pharmacy: [facility] #[id number], 160.02, cm, 07/14/19 10:19:00 EDT, Height/Length Measured, 67, kg, 07/14/19 10:19:00 EDT, Weight Measured Start Date: 07/14/19 Status: Ordered Problems Active Problems Problem ClassificationProblemDateDocumented DateEpisodic/ChronicAbdominal pain (11 sources)Abdominal pain; Translations: [Unspecified abdominal pain]Onset: 12-10-2020 Resolved: 03-88-8122YqxnuuacEgllw and chronic tonsillitis (4 sources)Chronic tonsillitis; Translations: [Chronic tonsillitis]Onset: 09-25-2020 Resolved: 657770-37-6580SptwytmZjhyzkg disorders (2 sources)Generalized anxiety disorder; Translations: [Generalized anxiety disorder]Onset: 87-05-4421GsfvshxKiiyor (4 sources)Exacerbation of intermittent asthma; Translations: [Mild intermittent asthma with (acute) exacerbation]76-37-1154RktnpssRlbehmtz of urinary tract (6 sources)Kidney stone; Translations: [Calculus of kidney]Onset: 03-24-2024 EpisodicEsophageal disorders (1 source)Gastroesophageal reflux disease; Translations: [Gastro-esophageal reflux disease without esophagitis]ChronicGenitourinary congenital anomalies (4 sources)Double ureter; 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]Onset: 08-14-2024 ChronicGenitourinary symptoms and ill-defined conditions (5 sources)Hematuria, unspecified; Translations: [Dysuria]Onset: 04-05-2024 EpisodicHeadache; including migraine (3 sources)Hemxkqzy63-63-5020BqrnhsbqBgzs disorders (6 sources)Bipolar disorder; Translations: [Depressive disorder]07-14-2019 ChronicOther connective tissue disease (4 sources)Plantar fascial fibromatosis; Translations: [PLANTAR FASCIAL FIBROMATOSIS]Onset: 40-39-8310VtmqrebdTodkb connective tissue disease (4 sources)Pain in right foot; Translations: [PAIN IN RIGHT FOOT]Onset: 93-49-3309BgcrmmuhEvinq connective tissue disease (1 source)Pain in left foot; Translations: [PAIN IN LEFT FOOT]Onset: 03-09-2022 EpisodicOther diseases of kidney and ureters (1 source)Kuzgwbzuicahgd63-96-0691IdzjjtgtBujez diseases of kidney and ureters (2 sources)Stricture of ureter; Translations: [Crossing vessel and stricture of ureter without hydronephrosis]Onset: 59-11-9882KbmkmuyoOchaf diseases of kidney and ureters (2 sources)Stenosis of nwsycf48-39-5223IpnlulgiFsyot screening for suspected conditions (not mental disorders or infectious disease) (2 sources)Patient encounter status; Translations: [Encounter for screening for cardiovascular disorders]81-01-7636JjcdtjpbOjevt upper respiratory disease (4 sources)Allergic rhinitis; Translations: [Allergic rhinitis, unspecified] Onset: 182288-53-4010WxxagveOlrwd upper respiratory infections (4 sources)Sinusitis; Translations: [Chronic sinusitis, unspecified]Onset: 640607-35-4599ZrqwmklEzuhfrlsqph; intervertebral disc disorders; other back problems (1 source)Spondylosis without myelopathy or radiculopathy, lumbar region; Translations: [SPONDYLS W/O MYELO-/RADICULOP LUMB]Onset: 90-85-2500Twygykl Spondylosis; intervertebral disc disorders; other back problems (4 sources)Radiculopathy, lumbar region; Translations: [RADICULOPATHY LUMBAR REGION]Onset: 67-71-9185TarsdqmlSrspyuiyytjj (4 sources)LOW BACK PAIN, UNSPECIFIED; Translations: [LOW BACK PAIN, UNSPECIFIED]Onset: 41-09-4382Adcraqnvjecg (2 sources)CONTACT W/AND (SUSP) EXPOS COVID-19; Translations: [CONTACT W/AND (SUSP) EXPOS COVID-19]Onset: 85-51-8050Bxxwmck tract infections (2 sources)Urinary tract infectious disease; Translations: [Urinary tract infection, site not specified]Onset: 872706-59-1664UlpkuossXvihw infection (1 source)COVID-19; Translations: [COVID-19]Onset: 10-26-2021 Past or Other Problems Problem ClassificationProblemDateDocumented DateEpisodic/ChronicAbdominal hernia (2 sources)Hiatal hernia; Translations: [Diaphragmatic hernia without obstruction or gangrene]Onset: 12-10-2020 Resolved: 22-55-0419QtsdvyubRmriezlkteerv of surgical procedures or medical care (4 sources)Bleeding following tonsillectomy; Translations: [Postprocedural hemorrhage of a respiratory system organ or structure following a respiratory system procedure]Onset: 677683-59-4826EkhekdfxXfpn disorders (4 sources)Mood disordersOnset: Nausea and vomiting (2 sources)Nausea and vomiting; Translations: [Nausea with vomiting, unspecified]Onset: 12-10-2020 Resolved: 57-51-5839TtuuchleWbjzy gastrointestinal disorders (1 source)Diarrhea; Translations: [Diarrhea, unspecified]EpisodicOther gastrointestinal disorders (1 source)Diarrhea, unspecified; Translations: [Diarrhea R19.7]Onset: 12-10-2020 Resolved: 73-97-7528TzhaocfzYyjdhpacklwm (1 source)LOW BACK PAIN, UNSPECIFIED; Translations: [LOW BACK PAIN, UNSPECIFIED] Onset: 62-11-9506Mdtlkcncbfzz (1 source)CONTACT W/AND (SUSP) EXPOS COVID-19; Translations: [CONTACT W/AND (SUSP) EXPOS COVID-19]Onset: 10-24-2021 Results Test NameValueInterpretationReference RangeFacilityAmbulatory Visit Summaryon 78-19-4263Crtxmsclsh Visit SummaryAmbulatory Visit Summary CHANCE JACOBS :1985 Visit Date:11/15/2024 Ambulatory Visit Instructions Your Diagnosis Dysuria Left flank pain Kidney stone Ureteral stenosis, left Duplicated left renal collecting system Tests Performed XR Abdomen 1 View -- Results Pending -- Please visit your patient portal for your results or contact your primary care physician. Your Care Team Attending Physician - Deangelo VALENTE MD Primary Care Physician - ILANA DELONG This Is Your Medications List Contact prescribing physician if questions or concerns cetirizine (cetirizine 10 mg Tab) ondansetron (ondansetron 4 mg Dis Tab) risperidone (risperidone 1 mg Tab) tamsulosin (tamsulosin 0.4 mg Cap) [Image Removed: STOP]Stop taking these medications methenamine (methenamine hippurate 1 g oral tablet) Procedures Performed Cystoscopic removal of ureteric stent (04/26/2024), Cystoscopy (03/30/2024), Appendectomy, Cholecystectomy, Colonoscopy, History of laser assisted in situ keratomileusis, History of tonsillectomy. Discharge Vitals Temperature (Temporal Artery) 37 ???C Heart Rate (Peripheral) 83 Respiratory Rate 16 Blood Pressure 123/84 Height 160 cm Height 63 in Weight 75.5 kg Weight 166.449 lb BMI 29.49 What to do next Scheduled Follow-Up Appointments Wednesday2025 9:15 AM EDT With: SYMONE OLVERA, Deangelo Funes Where: [facility] [address] [address]- Medications What How Much When Why Instructions Unchanged cetirizine (cetirizine 10 mg Tab) 1 Tablets Contact prescribing physician if questions orconcerns Unchanged ondansetron (ondansetron 4 mg Dis Tab) 1 Tablets Contact prescribing physician if questions or concerns Unchanged risperidone (risperidone 1 mg Tab) 1 Tablets Contact prescribing physician if questions or concerns Unchanged tamsulosin (tamsulosin 0.4 mg Cap) 1 Capsules By Mouth Every day Kidney stone Contact prescribing physician if questions or concerns What How Much When Why Comments Stop Taking methenamine (methenamine hippurate 1 g oral tablet) 1 Tablets By Mouth 2 times a day Dysuria Duration: 30 Days Allergies LaMICtal (Rash) Pork (Unknown) Problems Ongoing - Any problem that you are currently receiving treatment for. Asthma Bipolar disorder Depression Duplicated left renal collecting system Dysuria Head ache Kidney stone Left flank pain Ureteral stenosis, left Patient Survey You may receive a survey via text or e-mail asking about your office visit. Please share your experience with us by completing your survey. We appreciate your feedback and thank you for choosing us for your care. Patient Portal You may access all of your results and other medical record information on our secure patient portal. If you are not signed up for this yet, please contact [employer] at [phone] to get signed up today. Language Information Language assistance services are available as needed. [facility] Noteon 12-44-8636Tedvhvf Office/Clinic NoteUrology Office/Clinic Note Chief Complaint 3 month f/u HPI Staff 3 month f/u. Previous dx: dysuria, L flank pain, kidney stone, L ureteral stenosis, duplicated L renal collecting system. Tamsulosin qd. States that she only took the methenamine for about a week after prescribed at last OV because she started having bilateral pain in the kidney region of her back. Denies all urinary concerns at this time. History of Present Illness Tests reviewed: reviewed UA I have reviewed the previous health record [...] HPI. Physical Exam Vitals & Measurements T: 37 ???C(Temporal Artery) HR: 83(Peripheral) RR: 16 BP: 123/84 HT: 160 cm HT: 63 in WT: 166.449 lb WT: 75.5 kg BMI: 29.49 General Appearance: alert , no acute distress, well nourished, well developed female. Assessment/Plan 1. Dysuria (R30.0: Dysuria) Started methenamine 1g bid and Flomax 0.4mg qd for possible stone passage due to reports of painfulurination and flank/abdominal pain, L >> R. at prior OV. UA today neg for blood or infection Reports she only took methenamine for roughly 1 week. Denies any urinary concerns at this time. Has increased her water intake and decreased caffeine. Will only note mild flank pain when she is dehydrated. Discussed goal fluid intake is 12 16oz water bottles per day. -Cont Flomax 0.4mg qd for possible stone passage -Pt to present to ER or call our office if sxs worsen. Will obtain CT scan. -Follow up in 6 mos w/ a KUB 2. Left flank pain (R10.9: Unspecified abdominal pain) See #1 3. Kidney stone (N20.0: Calculus of kidney) Cysto, rigid L ureteral dilation, L URS, L stone basket extraction, L stent placement 08/03/19. Cysto with L stent removal 08/14/19. CT AP [...] stenosis and Alex's plaques noted in LUP. [1] CTU 04/05/24 [facility] - L ureteral stent. Irregular bladder wall thickening, most prevalent in superiorportion of L bladder. May represent infectious/inflammatory etiology. S/p cysto, L stent removal 04/26/24. [2] CT AP wo con 05/09/24 [facility] - Nonobstructing 3 mm L renal stone. No R sided stones. No hydro or ureteral stone. Metabolic workup 05/23/24 - Volume 1,575 cc L. Part of the 24hr urine levels have not resulted yet.Serum panel wnl. [3] -See #1 4. Ureteral stenosis, left (N13.5: Crossing vessel and stricture of ureter without hydronephrosis) Noted from laser litho on 03/30/24. [3] 5. 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 [4] Follow-up No qualifying data available Patient Education I, Krysten Riojas, personally scribed for Dr. Valente on 11/15/2024 16:05:11. . Documentation recorded by the scribe, Floridalma Zamora, accurately reflects the services(s) I performed and decisions made by me. Authenticated by Dr. Valente on 11/15/2024 16:06:38. Portions of this record may have been created with voice recognition artificial intelligence software, specifically [employer], [employer] and or [employer]. Substitutions may have occurred due to the inherent limitations of voice recognition and artificial intelligence software. Problem List/Past Medical History Ongoing Asthma Bipolar disorder Depression Duplicated left renal collecting system Dysuria Head ache Kidney stone Left flank pain Ureteral stenosis, left Historical No qualifying data Procedure/Surgical History Cystoscopic removal of ureteric stent (04/26/2024), Cystoscopy (03/30/2024), Appendectomy, Cholecystectomy, Colonoscopy, History of laser assisted in situ keratomileusis, History of tonsillectomy. Medications cetirizine 10 mg Tab, 10 mg= 1 tab(s) ondansetron 4 mg Dis Tab, 4 mg= 1 tab(s) risperidone 1 mg Tab, 1 mg= 1 tab(s) tamsulosin 0.4 mg Cap, 0.4 mg= 1 cap(s), Oral, Daily, 3 refills Allergies LaMICtal (Rash) Pork (Unknown) Social History Alcohol - Denies Alcohol Use, 07/14/2019 Substa (more content not included)...[facility] HospitalComment on above:Result Comment: Electronically Signed By: Deangelo VALENTE MD\.br\Date and Time Signed: 11/15/24 16:06 EDT\.br\Electronically Co-Signed By: Krysten Riojas\.br\Date and Time Co-Signed: 11/15/24 16:05 EDTAmbulatory Visit Summary on 16-84-6825Vsrqghbiwc Visit SummaryAmbulatory Visit Summary CHANCE JACOBS :1985 Visit Date:08/14/2024 Ambulatory Visit Instructions Your Diagnosis Dysuria Left flank pain Kidney stone Ureteral stenosis, left Duplicated left renal collecting system Your Care Team Attending Physician - Deangelo VALENTE MD Primary Care Physician - ILANA DELONG This Is Your Medications List methenamine (methenamine hippurate 1 g oral tablet) tamsulosin (tamsulosin 0.4 mg Cap) Contact prescribing physician if questions or concerns cetirizine (cetirizine 10 mg Tab) ketorolac (ketorolac 10 mg Tab) methocarbamol (methocarbamol 750 mg Tab) ondansetron (ondansetron 4 mg Dis Tab) Procedures Performed Cystoscopic removal of ureteric stent (04/26/2024), Cystoscopy (03/30/2024), Appendectomy, Cholecystectomy, Colonoscopy, History of laser assisted in situ keratomileusis, History of tonsillectomy. Discharge Vitals Heart Rate (Peripheral) 80 Respiratory Rate 16 Blood Pressure 134/88 Height 160 cm Height 63 in Weight 74.4 kg Weight 164.024 lb BMI 29.06 What to do next Scheduled Follow-Up Appointments Wednesday 2:45 PM EDT With: Deangelo VALENTE MD Where: [facility] [address] [place] [address]. [place] [address]- Wednesday 9:15 AM EST With: Deangelo VALENTE MD Where: [facility] [address] [facility] [place] [address]- You Need to Schedule the Following Appointments Follow Up with Deangelo VALENTE MD, URL When: Where: [facility] [address], [place] [address]- [phone] Medications What How Much When Why Instructions New methenamine (methenamine hippurate 1 g oral tablet) 1 Tablets By Mouth 2 times a day Dysuria Duration: 30 Days Refills: 11 Pickup at [facility]/pharmacy #[id number] New tamsulosin (tamsulosin 0.4 mg Cap) 1 Capsules By Mouth Every day Kidney stone Refills: 3 Pickupat [facility][id number] Unchanged cetirizine (cetirizine 10 mg Tab) 1 Tablets Contact prescribing physician if questions orconcerns Unchanged ketorolac (ketorolac 10 mg Tab) 1 Tablets Contact prescribing physician if questions or concerns Unchanged methocarbamol (methocarbamol 750 mg Tab) 2 Tablets Contact prescribing physician if questions or concerns Unchanged ondansetron (ondansetron 4 mg Dis Tab) 1 Tablets Contact prescribing physician if questions or concerns Pharmacy Information [facility]/pharmacy #[id number]: [address], [place] [id number] [phone] Allergies LaMICtal (Rash) Pork (Unknown) Problems Ongoing - Any problem that you are currently receiving treatment for. Asthma Bipolar disorder Depression Duplicated left renal collecting system Dysuria Head ache Kidney stone Left flank pain Ureteral stenosis, left Patient Survey You may receive a survey via text or e-mail asking about your office visit. Please share your experience with us by completing your survey. We appreciate your feedback and thank you for choosing us for your care. Education Materials Dysuria Dysuria is pain or discomfort during urination. The pain or discomfort may be felt in the part of the body that drains urine from the bladder (urethra) or in the surrounding tissue of the genitals. The pain may also be felt in the groin area, lower abdomen, or lower back. You may have to urinate frequently or have the sudden feeling that you have to urinate (urgency). Dysuria can affect anyone, but it is more common in females. Dysuria can be caused by many different things, including: ??? Urinary tract infection. ??? Kidney stones or bladder stones. ??? Certain STIs (sexually transmitted infections), such as chlamydia. ??? Dehydration. ??? Inflammation of the tissues of the vagina. ??? Use of certain medicines. ??? Use of certain soaps or scented products that cause irritation. Follow these instructions at home: Medicines ??? Take lazo-jzp-ifpwtqd and prescription medicines only as told by your health care provider. ??? If you were prescribed an antibiotic medicine, take it as told by your health care provider. Do notstop taking the antibiotic even if you start to feel better. Eating and drinking ??? Drink enough fluid to keep your urine pale yellow. ??? Avoid caffeinated beverages, tea, and alcohol. These beverages can irritate the bladder and make dysuria worse. In males, alcohol may irritate the prostate. General instructions ??? Watch your condition for any changes. ??? Urinate often. Avoid holding urine for long periods of time. ??? If you are female, you should wipe from front to back after urinating or having a bowel movement. Use each piece of toilet paper only once. ??? Empty your bladder after sex. ??? Keep all follow-up visits. This is important. ??? If you (more content not included)...[facility] HospitalU[facility] Office/Clinic Noteon [id number] Office/Clinic NoteUrology Office/Clinic Note Chief Complaint pt here for painful urination HPI Staff 39 year old female here for pain with urination Pt reports that she is having LLQ with urination and bilateral flank pt was prescribed macrobid on Wednesday and did complete as directed pt denies visible blood History of Present Illness Tests reviewed: reviewed UA I have reviewed the previous health record [...] HPI. Physical Exam Vitals & Measurements HR: 80(Peripheral) RR: 16 BP: 134/88 HT: 160 cm HT: 63 in WT: 74.4 kg WT: 164.024 lb BMI: 29.06 General Appearance: alert , no acute distress, well nourished, well developed female. Genitourinary: severe left flank pain. Assessment/Plan 1. Dysuria (R30.0: Dysuria) Started having nausea 6 days ago. Has been taking zofran since. Then started having severe pain w urination. [place] like when she had a ureteral stent in place. UA per PCP was neg for infection 3 days ago. However was given abx. Still having pain w urination, has improved some since abx. Also startedhaving flank and abdominal pain, L >> R. Reports dribbling after voiding yesterday. UA today neg (after taking abx). Recommended methenamine for sx relief and to prevent infection. Mentioned cysto/possible UD or CT scan to evaluate if sxs do not improve w methenamine. Advised pt we are tryingto avoid CT given this was just done 3 mos ago. -Start methenamine 1g bid -Start Flomax 0.4mg qd for possible stone passage -Pt to present to ER or call our office if sxs worsen. Will obtain CT scan. 2. Left flank pain (R10.9: Unspecified abdominal pain) See #1. 3. Kidney stone (N20.0: Calculus of kidney) Cysto, rigid L ureteral dilation, L URS, L stone basket extraction, L stent placement 08/03/19. Cysto with L stent removal 08/14/19. CT AP [...] stenosis and Alex's plaques noted in LUP. [1] CTU 04/05/24 [facility] - L ureteral stent. Irregular bladder wall thickening, most prevalent in superiorportion of L bladder. May represent infectious/inflammatory etiology. S/p cysto, L stent removal 04/26/24. [2] CT AP wo con 05/09/24 [facility] - Nonobstructing 3 mm L renal stone. No R sided stones. No hydro or ureteral stone. Metabolic workup 05/23/24 - Volume 1,575 cc L. Part of the 24hr urine levels have not resulted yet.Serum panel wnl. [3] -See #1 4. Ureteral stenosis, left (N13.5: Crossing vessel and stricture of ureter without hydronephrosis) Noted from laser litho on 03/30/24. [3] 5. 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 [4] Follow-up With When Contact Information SYMONE OLVERA, Deangelo Funes, URL [facility] [address], [place] [phone] Additional Instructions: 3 mos Patient Education Dysuria I, Xin Guan, personally scribed for Dr. Valente on 08/14/2024 12:05:05. . Documentation recorded by the scribe, Xin Guan, accurately reflects the services(s) I performed and decisions made by me. Authenticated by Dr. Valente on 08/14/2024 12:06:46. Problem List/Past Medical History Ongoing Asthma Bipolar disorder Depression Duplicated left renal collecting system Dysuria Head ache Kidney stone Left flank pain Ureteral stenosis, left Historical No qualifying data Procedure/Surgical History Cystoscopic removal of ureteric stent (04/26/2024), Cystoscopy (03/30/2024), Appendectomy, Cholecystectomy, Colonoscopy, History of laser assisted in situ keratomileusis, History of tonsillectomy. Medications cetirizine 10 mg Tab, 10 mg= 1 tab(s) ketorolac 10 mg Tab, 10 mg= 1 tab(s) methenamine hippurate 1 g oral tablet, 1 gm= 1 tab(s), Oral, BID, 11 refills methocarbamol 750 mg Tab, 1500 mg= 2 tab(s) ondansetron 4 mg Dis Tab, 4 mg= 1 tab(s) tamsulosin 0.4 mg Cap, 0.4 mg= 1 cap(s), Oral, Daily, 3 refills Allergies LaMICtal (Rash) Pork (Unknown) Social History Alcohol - Denies Alcoho (more content not included)...[facility] HospitalComment on above:Result Comment: Electronically Signed By: Deangelo VALENTE MD\.br\Date and Time Signed: 08/14/24 12:06 EDT\.br\Electronically Co- Signed By: Xin Guan\.br\Date and Time Co-Signed: 08/14/24 12:05 EDT Ambulatory Visit Summaryon [id number] Visit SummaryAmbulatory Visit Summary CHANCE JACOBS :1985 Visit Date:05/24/2024 Ambulatory Visit Instructions Your Diagnosis Kidney stone Left flank pain Ureteral stenosis, left Duplicated left renal collecting system Tests Performed XR Abdomen 1 View -- Results Pending -- Please visit your patient portal for your results or contact your primary care physician. Your Care Team Attending Physician - Deangelo VALENTE MD Primary Care Physician - ILANA DELONG This Is Your Medications List Contact prescribing physician if questions or concerns ketorolac (ketorolac 10 mg Tab) methocarbamol (methocarbamol 750 mg Tab) ondansetron (ondansetron 4 mg Dis Tab) Procedures Performed Cystoscopic removal of ureteric stent (04/26/2024), Cystoscopy (03/30/2024), Appendectomy, Cholecystectomy, Colonoscopy, History of laser assisted in situ keratomileusis, History of tonsillectomy. Discharge Vitals Temperature (Temporal Artery) 37 ???C Heart Rate (Peripheral) 89 Respiratory Rate 17 Blood Pressure 130/86 Height 160 cm Height 63 in What to do next Scheduled Follow-Up Appointments Wednesday 9:15 AM EST With: Deangelo VALENTE MD Where: [facility] [address] [place] [address]- You Need to Schedule the Following Appointments Follow Up with Deangelo VALENTE MD, ANNITA When: Where: [facility] [address] [place] [address]- Medications What How Much When Instructions Unchanged ketorolac (ketorolac 10 mg Tab) 1 Tablets Contact prescribing physician if questions or concerns Unchanged methocarbamol (methocarbamol 750 mg Tab) 2 Tablets Contact prescribing physician if questions or concerns Unchanged ondansetron (ondansetron 4 mg Dis Tab) 1 Tablets Contact prescribing physician if questions or concerns Allergies LaMICtal (Rash) Pork (Unknown) Problems Ongoing - Any problem that you are currently receiving treatment for. Asthma Bipolar disorder Depression Duplicated left renal collecting system Head ache Kidney stone Ureteral stenosis, left [...] about 300 mg of calcium at each meal.Foods that contain 200???500 mg of calcium a serving include: ? 8 oz (237 mL) of milk, mfigkur-zriegmyhblke-umbwd milk, and calcium- fortifiedfruit juice. Calcium-fortified means that calcium has been [...] the table and allow each person to addtheir own salt to taste. ??? Use vegetable protein, such as beans, textured vegetable protein (TVP), or tofu, instead of meat inpasta, casseroles, and soups. Meal planning ??? Eat less salt, if told by your dietitian. To do this: ? Avoid eating processed or pre-made food. ? Avoid eating fast food. ??? Eat less animal protein, including (more content not included)...[facility] HospitalProvider Letteron [phone] LetterProvider Letter May 24, 2024 CHANCE JACOBS [address] [place] [address] : 1985 To Whom It May Concern, Please excuse above patient from work. Date of Illness: From: 05/24/24 To: 05/24/24 May Return to Work On: 05/25/24 Restrictions: None Comments: Patient had an appointment on 05/24/[address] Valente. Sincerely, [facility] ([phone] County HospitalUrology Office/Clinic Noteon [phone] Office/Clinic NoteUrology Office/Clinic Note HPI Staff Pt is here today because she is still having pain after her stent was removed 04/26/24. Pt states that her pain is there all the time on the left. She feels bloated like there is something in there pushing on her. Pt did have some visible blood in her urine that looked like tiny streaks. She went to [facility] ED 05/09/24 for left flank recently and had a negative UA and the CT done showed 3mm nonobstructing calculus in the left kidney. Denies any urinary issues at this time. History of Present Illness Tests reviewed: UA, 24h urine, serum panel, op note, CT I have reviewed the previous health [...] HPI. Physical Exam Vitals & Measurements T: 37 ???C(Temporal Artery) HR: 89(Peripheral) RR: 17 BP: 130/86 HT: 160 cm HT: 63 in General Appearance: alert, no distress, well nourished, well developed female. Assessment/Plan Nocturia varies from 0-3-6x/night. 1. Kidney stone (N20.0: Calculus of kidney) Cysto, rigid L ureteral dilation, L URS, L stone basket extraction, L stent placement 08/03/19. Cysto with L stent removal 08/14/19. CT AP [...] stenosis and Alex's plaques noted in [facility]. [facility] 04/05/24 d/t L sided abdominal/flank pain and gross hematuria. Dx with UTI. Treated with Keflex 500 mg q6hr x 7 days. CTU 04/05/24 [facility] - L ureteral stent. Irregular bladder wall thickening, most prevalent in superiorportion of L bladder. May represent infectious/inflammatory etiology. S/p cysto, L stent removal 04/26/24. [facility] ED 05/09/24 d/t flank pain. CT AP wo con 05/09/24 [facility] - Nonobstructing 3 mm L renal stone. No R sided stones. No hydro or ureteral stone. Metabolic workup 05/23/24 - Volume 1,575 cc L. Part of the 24hr urine levels have not resulted yet.Serum panel wnl. Reviewed recent neg CT with pt which does not show cause for L flank pain. Uncertain if stone is still embedded in the kidney or if has migrated to the collecting system but either way, stone would not cause pain in the kidney. Recommended pt to increase fluid intake to ten to twelve 16 oz bottles a day, preferably water, clear pop, and sugar free lemonade. Voices fluid intake and restroom breaksare difficult at work. Gets a break q3hrs. Would prefer if pt can have restroom breaks q2hr. Pt believes she will need a doctor's note to allow this. this will be written by me Follow up 8 mos with KUB or sooner if needed. Pt understands and agrees with plan. -Will provide doctor's note for pt to have restroom breaks q2hrs -Increase fluid intake -Will review the rest of the 24hr urine once resulted, will call pt with results (recalled) 2. Left flank pain (R10.9: Unspecified abdominal pain) See #1. L flank feels bloated. Always aches on that side. Pain worsens with activity. Strong familyhx of kidney failure. Father with hx of bladder cancer. Reassured pt that she has no signs of kidney failure or bladder cancer. Uncertain what is causing her pain. May or may not get relief with increase fluid intake. -Will cont sx monitoring for now since recent CT was neg 3. Ureteral stenosis, left (N13.5: Crossing vessel and stricture of ureter without hydronephrosis) Noted from laser litho on 03/30/24. 4. 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 Follow-up With When Contact Information SYMONE OLVERA, Deangelo Funes, L [facility] [address], [place] [address]- Additional Instructions: 8 mos with KUB Patient Education Dietary Guidelines to Help Prevent Kidney Stones I, Floridalma Zamora, personally scribed for Dr. Valente on 05/24/2024 14:02:36. . Documentation recorded by the scribe, Floridalma Zamora, accurately reflects the services(s) I performed and decisions made by me. Authenticated by Dr. Valente on 05/24/2024 14:11:25. Problem List/Past Medical History Ongoing Asthma Bipolar disorder Depression Duplicated left maryam (more content not included)...[facility] HospitalComment on above:Result Comment: Electronically Signed By: Deangelo VALENTE MD\.br\Date and Time Signed: 05/24/24 14:11 EDT\.br\Electronically Co- Signed By: Floridalma Zamora\.br\Date and Time Co-Signed: 05/24/24 14:04 EDT Ambulatory Visit Summaryon [id number] Visit SummaryAmbulatory Visit Summary CHANCE JACOBS :1985 Visit Date:04/26/2024 Ambulatory Visit Instructions Your [...] Deangelo VALENTE MD Where: [facility] [address] [place] [address]- You Need to Schedule the Following Appointments Follow Up with Deangelo VALENTE MD, URL When: Where: [facility] [address], [place] [address]- You Need to Complete the Following XR Abdomen 1 View, 04/15/25, Routine, Order for future visit, Transport Mode: Ambulatory, Reason: Kidney stone, No, Kidney stone, pp_set_radiology_subspecialty, [facility] Medications What How Much When Instructions Unchanged [...] about 300 mg of calcium at each meal.Foods that contain 200???500 mg of calcium a serving include: ? 8 oz (237 mL) of milk, grilnay-lvjmhzvtzoab-kscys milk, and calcium- fortifiedfruit juice. Calcium-fortified means that calcium has been [...] the table and allow each person to addtheir own salt to taste. ??? Use vegetable protein, such as beans, textured vegetable protein (TVP), or tofu, instead of meat inpasta, (more content not included)...[facility] HospitalProvider Letteron [phone] LetterProvider Letter April 26, 2024 CHANCE ARLENE [address] [place] [address] : 1985 To Whom It May Concern, Please excuse above patient from work. Date of Illness: From: 03/24/24 To: 04/30/24 May Return to Work On: 05/01/2024 Restrictions: None Comments: Patient may return to work on 05/01/24 without restrictions Sincerely, [facility] NormalRegency Hospital Cleveland EastUrology Office/Clinic Noteon [id number] Office/Clinic NoteUrology Office/Clinic Note Chief Complaint Cysto/left stent removal HPI Staff Here for cysto, L stent removal. Not Abx taken. But took abx from [facility]. Quit taking doxycycline from 03/30 the per ER. S/p cysto, L urs, L pyelo, laser litho L renal stones, L stent placement 03/30/24 - Distal L ureteral stenosis and Alex's plaques noted in [facility]. [facility] 04/05/24 d/t L sided abdominal/flank pain and gross hematuria. Dx with UTI. Treated with Keflex 500 mg q6hr x 7 days. CTU 04/05/24 [facility]. Pt has been having pinkish urine off [...] stenosis and Alex's plaques noted in [facility]. [facility] 04/05/24 d/t L sided abdominal/flank pain and gross hematuria. Dx with UTI. Treated with Keflex 500 mg q6hr x 7 days. CTU 04/05/24 [facility] - L ureteral stent. Irregular bladder wall thickening, most prevalent in superiorportion of L bladder. May represent infectious/inflammatory etiology. Discussed metabolic workup including 24 hour urine and blood work for stone prevention. Follow up 3 mos with metabolic workup. or sooner if needed. Pt understands and agrees with plan. 3. 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 4. Ureteral stenosis, left (N13.5: Crossing vessel and stricture of ureter without hydronephrosis) Noted from laser litho on 03/30/24. Follow-up With When Contact Information SYMONE OLVERA, Deangelo Funes, L [facility] [address], [place] [address]- Additional Instructions: 3 mos with metabolic workup Patient Education Dietary Guidelines to Help Prevent Kidney Stones IFloridalma, personally scribed for Dr. Valente on 04/26/2024 [...] left Historical No qualifying (more content not included)...[facility] Comment on above:Result Comment: Electronically Signed By: Deangelo VALENTE MD\.br\Date and Time Signed: 04/26/24 14:36 EDT\.br\Electronically Co-Signed By: Floridalma Zamora\.br\Date and Time Co-Signed: 04/26/24 14:33 EDTAlanine aminotransferase [Enzymatic activity/volume] in Serum or PlasmaOrdered By: Pedro Parks on 95-35-6259NMV [Catalytic activity/Vol]Alanine aminotransferase [Enzymatic activity/volume] in Serum or Plasma7-52[facility] Main CampusAlbumin [Mass/volume] in Serum or Plasma by Bromocresol green (BCG) dye binding methoOrdered By: Pedro Parks on 99-62-0001Idasfys BCG dye [Mass/Vol]Albumin [Mass/volume] in Serum or Plasma by Bromocresol green (BCG) dye binding metho3.5-5.7FParkwood HospitalAlkaline phosphatase [Enzymatic activity/volume] in Serum or PlasmaOrdered By: Pedro Parks on 26-18-0128AYL [Catalytic activity/Vol]Alkaline phosphatase [Enzymatic activity/volume] in Serum or Tdndyv73-432FcsxzspftKettering Health Main Campus Appearance of UrineOrdered By: Pedro Parks on 88-25-1659Ootvfoeatl (U) Urine appearanceAbnormMercy Health Lorain HospitalAspartate aminotransferase [Enzymatic activity/volume] in Serum or PlasmaOrdered By: Pedro Parks on 21-75-0826XAQ [Catalytic activity/Vol]Aspartate aminotransferase [Enzymatic activity/volume] in Serum or Adyngs12-99NlhuhoyykKettering Health Main CampusBacteria [Presence] in Urine by AutomatedOrdered By: Pedro Parks on 79-80-0364Djnqfriw Auto Ql (U)Bacteria [Presence] in Urine by AutomatedNone SeenKettering Health Main CampusBasophils Auto (Bld) [#/Vol]Ordered By: Pedro Parks on 52-96-9575Fdcnedwgk (Bld) [#/Vol] Automated basophil count0.0-0.2FParkwood HospitalBasophils/100 WBC Auto (Bld)Ordered By: Pedro Parks on 84-46-7498Bxmijmhmg/100 WBC (Bld) Automated basophil %.[facility] CampusBilirubin Test strip Ql (U)Ordered By: Pedro Parks on 20-58-4098Gvasqyeqz Ql (U)Bilirubin.total [Presence] in Urine by Test stripNegativeKettering Health Main Campus Bilirubin.total [Mass/volume] in Serum or PlasmaOrdered By: Pedro Parks on 00-31-3448Bnfmlcwqx [Mass/Vol]Bilirubin.total [Mass/volume] in Serum or Plasma 0.3-1.0[facility] Main CampusCT urogramon [id number] urogram [facility] [place] [address] [place] [address] CT Scan Report Signed Patient: Chance Jacobs MR#: [id number] : 1985 Acct:[id number] Age/Sex: 39 / F ADM Date: 04/05/24 Loc: ER Room: Type: [facility] ER Attending Dr: Copies to: Pedro [...] Bob Mead M.D.04/05/2024 3:00 PM Dictation Location: [place] [address] Transcribed By: [facility] 04/05/24 1500 Dictated By: Bob Mead DO 04/05/24 1450 Signed By: 04/05/24 1500NoFormerly [facility] Physician GroupCalcium [Mass/volume] in Serum or PlasmaOrdered By: Pedro Parks on 24-09-7891Qicdyqs [Mass/Vol]Calcium [Mass/volume] in Serum or Plasma8.6-10.3FParkwood HospitalCarbon dioxide, total [Moles/volume] in Serum or PlasmaOrdered By: Pedro Parks on 66-98-6986JX7 [Moles/Vol]Carbon dioxide, total [Moles/volume] in Serum or Uysbrs38.0-31.0[facility] CampusChloride [Moles/volume] in Serum or PlasmaOrdered By: Pedro Parks on 92-65-6390Iulzvnuw [Moles/Vol] Chloride [Moles/volume] in Serum or Yffuyb13-311MpowsjhpgKettering Health Main CampusCoagulation Profileon 13-34-5700pITU Coag (Bld) [Time]30.1 sNormal 25.1-36.5[facility] Physician [facility] Care HospitalComment on above:Result Comment: A hematocrit value greater than 55% may lead to inaccurate results in coagulation testing. Patients having hematocrit values >55% require a special collection tube for coagulation studies. Please contact the laboratory at [phone] for redraw instructions. PERFORMED BY: [address] [address] PATHOLOGIST HOUSE CARPENTER HELPER FARZANEH TORRES M.D.Performed By: #### CBC, CMP, PP #### [place] [address] USAINR Coag (PPP) [Relative time]1.0 {INR}NormalThe [facility] Regional Hospital Physician GroupComment on above:Result Comment: INR Therapeutic Range A) Pre- and [...] patients with mechanical heart valves: 3 - 4.5Performed By: #### CBC, CMP, PP #### [place] [address] USAPT Coag (PPP) [Time]11.9 sNormal9.0-12.9[facility] Physician GroupComment on above:Result Comment: A hematocrit value greater than 55% may lead to inaccurate results in coagulation testing. Patients having hematocrit values >55% require a special collection tube for coagulation studies. Please contact the laboratory at [phone] for redraw instructions.Performed By: #### CBC, CMP, PP #### [place] [address] USAColor Auto (U)Ordered By: Pedro Parks on 04-05-2024 Color (U)Color of Urine by AutoYellowKettering Health Main CampusComplete Blood Count Auto Diffon 67-98-7852Gxynqkpye (Bld) [#/Vol]0.0 10*3/uLNormal 0.0-0.2[facility] Physician GroupComment on above:Result Comment: PERFORMED BY: [place] [address] PATHOLOGIST HOUSE CARPENTER HELPER FARZANEH TORRES M.D.Performed By: #### CBC, CMP, PP #### [place] [address] USABasophils/100 WBC (Bld)0.6 %Normal.[facility] Physician GroupComment on above:Performed By: #### CBC, CMP, PP #### [place] [address] USAEosinophils (Bld) [#/Vol]0.2 10*3/uLNormal0.0-0.45[facility] Physician GroupComment on above:Performed By: #### CBC, CMP, PP #### [place] [address] USAEosinophils/100 WBC (Bld)2.6 %Normal.[facility] Physician GroupComment on above:Performed By: #### CBC, CMP, PP #### [place] [address] USAErythrocyte distribution width (RBC) [Ratio]13.9 %Normal 11.9-15.3[facility] Physician GroupComment on above:Performed By: #### CBC, CMP, PP #### [place] [address] USAHematocrit (Bld) [Volume fraction]41.8 %Olgrfm68.0-46.4[facility] Physician GroupComment on above:Performed By: #### CBC, CMP, PP #### [place] [address] USAHemoglobin (Bld) [Mass/Vol]14.1 g/vXOztxer63.8-15.4[facility] Physician GroupComment on above:Performed By: #### CBC, CMP, PP #### [place] [address] USALymphocytes (Bld) [#/Vol]2.0 10*3/uLNormal1.00-4.8The [facility] Physician GroupComment on above:Performed By: #### CBC, CMP, PP #### [place] [address] USALymphocytes/100 WBC (Bld)27.9 %Normal.The [facility] Physician GroupComment on above:Performed By: #### CBC, CMP, PP #### [place] [address] USAMCH (RBC) [Entitic mass]28.2 xrJamyym20.7-34.3The [facility] Physician GroupComment on above:Performed By: #### CBC, CMP, PP #### [place] [address] USAMCV (RBC) [Entitic vol]83.4 rYRvsyea89-221Ekq [facility] Physician GroupComment on above:Performed By: #### CBC, CMP, PP #### [facility] [address] [place] [address] USAMean Corpuscular HGB Conc33.8 g/gGVnynwl60.0-35.0The [facility] Physician GroupComment on above:Performed By: #### CBC, CMP, PP #### [facility] [address] [place] [address] USAMonocytes (Bld) [#/Vol]0.4 10*3/uLNormal0.0-0.8The [facility] Physician GroupComment on above:Performed By: #### CBC, CMP, PP #### [place] [address] USAMonocytes/100 WBC (Bld)17.71 %Normal0.00-20.00The [facility] Physician GroupComment on above:Performed By: #### CBC, CMP, PP #### [place] [address] USAMonocytes/100 WBC (Bld)6.1 %Normal.The [facility] Physician GroupComment on above:Performed By: #### CBC, CMP, PP #### [place] [address] USANeutrophils (Bld) [#/Vol]4.4 10*3/uLNormal1.8-7.7The [facility] Physician GroupComment on above:Performed By: #### CBC, CMP, PP #### [place] [address] USANeutrophils/100 WBC (Bld)62.8 %Normal.The [facility] Physician GroupComment on above:Performed By: #### CBC, CMP, PP #### [place] [address] USANRBC%0.1 /100{WBC}Normal0-0.5The [facility] Comment on above:Performed By: #### CBC, CMP, PP #### [place] [address] USAPlatelet mean volume (Bld) [Entitic vol]6.6 fLNormal 6.3-10.7The [facility] Physician GroupComment on above:Performed By: #### CBC, CMP, PP #### [facility] [address] [place] [address] USAPlatelets (Bld) [#/Vol]433 10*3/mIPyyesk745-653Ugs [facility] Physician GroupComment on above:Performed By: #### CBC, CMP, PP #### [facility] [address] [place] [address] USARBC (Bld) [#/Vol]5.02 10*6/uLHigh3.60-5.00The [facility] Physician GroupComment on above:Performed By: #### CBC, CMP, PP #### [place] [address] USAWBC (Bld) [#/Vol]7.0 10*3/uLNormal3.8-11.6The [facility] Physician GroupComment on above:Performed By: #### CBC, CMP, PP #### [place] [address] USAComprehensive Metabolic Panelon 75-13-1046Gpjbjoz [Mass/Vol]4.0 g/dLNormal3.5-5.7The [facility] Physician GroupComment on above: Performed By: #### CBC, CMP, PP #### [place] [address] USAAlbumin/Globulin [Mass ratio]1.1 {ratio}NormalThe [facility] Physician GroupComment on above:Performed By: #### CBC, CMP, PP #### [facility] [address] [place] [address] USAALP [Catalytic activity/Vol]44 U/WHimfmb69-074Sqg [facility] Physician GroupComment on above:Performed By: #### CBC, CMP, PP #### [place] [address] USAALT [Catalytic activity/Vol]16 U/LNormal7-52The [facility] Physician GroupComment on above:Performed By: #### CBC, CMP, PP #### [place] [place] [address] [place] [address] USAAnion gap [Moles/Vol]11.3 mmol/LNormal6.0-15.0The [facility] Physician GroupComment on above:Performed By: #### CBC, CMP, PP #### [facility] [address] [place] [address] USAAST [Catalytic activity/Vol]17 U/BSfbvor59-46Cgv [facility] Physician GroupComment on above:Performed By: #### CBC, CMP, PP #### [facility] [address] [place] [address] USABilirubin [Mass/Vol]0.4 mg/dLNormal0.3-1.0The [facility] Physician GroupComment on above:Performed By: #### CBC, CMP, PP #### [place] [address] USACalcium [Mass/Vol]9.1 mg/dLNormal8.6-10.3The [facility] Physician GroupComment on above:Performed By: #### CBC, CMP, PP #### [place] [address] USAChloride [Moles/Vol]106 mmol/QLkhdty16-607Dwq [facility] Physician GroupComment on above:Performed By: #### CBC, CMP, PP #### [place] [address] USACO2 [Moles/Vol]24.0 mmol/KDyepcg35.0-31.0The [facility] Physician GroupComment on above:Performed By: #### CBC, CMP, PP #### [place] [address] USACreatinine [Mass/Vol]0.88 mg/dLNormal0.60-1.20The [facility] Physician GroupComment on above:Performed By: #### CBC, CMP, PP #### [facility] [address] [place] [address] USACreatinine Clr Calc Jxmayykx78.54NormalThe [facility] Physician GroupComment on above:Result Comment: PERFORMED BY: [address] [place] [address] PATHOLOGIST HOUSE CARPENTER HELPER FARZANEH TORRES M.D.Performed By: #### NEIL FLORES, PP #### [place] [address] USAGFR/1.73 sq M.predicted MDRD (S/P/Bld) [Vol rate/Area] mL/min/{1.73_m2}NormalThe [facility] Physician GroupComment on above:Performed By: #### NEIL FLORES, PP #### [place] [address] USAGlobulin (S) [Mass/Vol]3.6 g/dLNormalThe [facility] Physician GroupComment on above:Performed By: #### NEIL FLORES, PP #### [place] [address] USAGlucose [Mass/Vol]87 mg/rRYsjwow71-458Pkb [facility] Physician GroupComment on above:Result Comment: Random Glucose Reference Range is dependent on time and content of last meal. Glucose of more than 200 mg/dL in a nonstressed, ambulatory subject supports the diagnosis of Diabetes Mellitus. ADA recommended reference rangePerformed By: #### NEIL FLORES, PP #### [place] [address] USAPotassium [Moles/Vol]4.3 mmol/LNormal3.5-5.1The [facility] Physician GroupComment on above:Performed By: #### NEIL FLORES, PP #### [place] [address] USAProtein [Mass/Vol]7.6 g/dLNormal6.4-8.9The [facility] Physician GroupComment on above:Performed By: #### NEIL FLORES, PP #### [place] [address] USASodium [Moles/Vol]137 mmol/IZhesgz767-228Jxw [facility] Physician GroupComment on above:Performed By: #### SANDRA CMP, PP #### [place] [address] USAUrea nitrogen [Mass/Vol]9 mg/dLNormal7-25The [facility] Physician GroupComment on above:Performed By: #### CBC, CMP, PP #### [facility] [address] [place] [id number] USACreatinine [Mass/volume] in Serum or PlasmaOrdered By: Pedro Parks on 21-78-8479Neobopnlxh [Mass/Vol]Creatinine [Mass/volume] in Serum or Plasma0.60-1.20[facility] Main CampusDipstick and Microscopicon 54-13-2329Qrkbzkohhe (U)CloudyCritically abnormalClearThe [facility] Physician GroupComment on above:Order Comment: Name Collection Type:: Clean-Voided MidstreamPerformed By: #### CUU, ADDONUAPLUS #### [facility] [address] [place] [address] USABacteria,UrineRareNormalNone SeenThe [facility] Physician GroupComment on above:Order Comment: Name Collection Type:: Clean-Voided MidstreamPerformed By: #### CUU, ADDONUAPLUS #### [facility] [address] [place] [address] USABilirubin,UrineNegativeNormalNegativeHca [facility] Physician GroupComment on above:Order Comment: Name Collection Type:: Clean- Voided MidstreamPerformed By: #### CUU, ADDONUAPLUS #### [facility] [address] [place] [address] USAColor (U)YellowNormalYellowThe [facility] Comment on above:Order Comment: Name Collection Type:: Clean-Voided Midstream Performed By: #### CUU, ADDONUAPLUS #### [facility] [address] [place] [address] USAGlucose Ql (U)NormalNormalNormalThe [facility] Physician GroupComment on above:Order Comment: Name Collection Type:: Clean-Voided MidstreamPerformed By: #### CUU, ADDONUAPLUS #### [facility] [address] [place] [id number] USAHyaline Casts,UrineNoneNormal0-8The [facility] Physician GroupComment on above:Order Comment: Name Collection Type:: Clean-Voided MidstreamPerformed By: #### CUU, ADDONUAPLUS #### [place] [id number] USAKetones Ql (U)NegativeNormalNegativeThe [facility] Physician GroupComment on above:Order Comment: Name Collection Type:: Clean- Voided MidstreamPerformed By: #### CUU, ADDONUAPLUS #### [place] [id number] USALeukocyte esterase Test strip Ql (U)4+HighNegativeThe [facility] Physician GroupComment on above:Order Comment: Name Collection Type:: Clean-Voided MidstreamPerformed By: #### CUU, ADDONUAPLUS #### [place] [address] USAMucus,Urine3+Critically abnormalThe [facility] Physician GroupComment on above:Order Comment: Name Collection Type:: Clean-Voided MidstreamResult Comment: PERFORMED BY: [place] [address] PATHOLOGIST HOUSE CARPENTER HELPER FARZANEH TORRES M.D.Performed By: #### CUU, ADDONUAPLUS #### [place] [address] USANitrite,UrineNegativeNormalNegativeThe [facility] Physician GroupComment on above:Order Comment: Name Collection Type:: Clean-Voided MidstreamPerformed By: #### CUU, ADDONUAPLUS #### [place] [id number] USAOccult Blood,Urine3+HighNegativeThe [facility] Physician GroupComment on above:Order Comment: Name Collection Type:: Clean-Voided MidstreamResult Comment: PERFORMED BY: [place] [address] PATHOLOGIST HOUSE CARPENTER HELPER FARZANEH TORRES M.D.Performed By: #### CUU, ADDONUAPLUS #### [place] [id number] USApH (U)6.0 [pH]Normal5.0-9.0The [facility] Comment on above:Order Comment: Name Collection Type:: Clean-Voided Midstream Performed By: #### CUU, ADDONUAPLUS #### [place] [address] USAProtein (U) [Mass/Vol]100 mg/dLHighNegativeThe [facility] Physician GroupComment on above:Order Comment: Name Collection Type:: Clean- Voided MidstreamPerformed By: #### CUU, ADDONUAPLUS #### [place] [address] USARBC,UrineInnumerableHigh0-4The [facility] Comment on above:Order Comment: Name Collection Type:: Clean-Voided Midstream Performed By: #### CUU, ADDONUAPLUS #### [place] [address] USASpecificy Recluse,Urine1.737Bsmyhq8.001-1.030The [facility] Physician GroupComment on above:Order Comment: Name Collection Type:: Clean- Voided MidstreamPerformed By: #### CUU, ADDONUAPLUS #### [place] [address] USASquamous Epithelial Cell,Buhwg9-2Hgvc1-2Pqd [facility] Physician GroupComment on above:Order Comment: Name Collection Type:: Clean- Voided MidstreamPerformed By: #### CUU, ADDONUAPLUS #### [place] [address] USAUrobilinogen,UrineNormalNormalNormalThe [facility] Physician GroupComment on above:Order Comment: Name Collection Type:: Clean- Voided MidstreamPerformed By: #### CUU, ADDONUAPLUS #### [place] [address] USAWBC CLUMP, UrineModerateHighNone SeenThe [facility] Physician GroupComment on above:Order Comment: Name Collection Type:: Clean- Voided MidstreamPerformed By: #### CUU, ADDONUAPLUS #### [facility] [address] [place] [address] USAWBC,Bqjzz14-108Ozij2-0Pqm [facility] Physician GroupComment on above:Order Comment: Name Collection Type:: Clean-Voided MidstreamPerformed By: #### CUU, ADDONUAPLUS #### [facility] [address] [place] [address] USAEosinophils Auto (Bld) [#/Vol]Ordered By: Pedro Parks on 53-92-6787Sfqycwmxfse (Bld) [#/Vol]Automated eosinophil count0.0-0.45 [facility] CampusEosinophils/100 WBC Auto (Bld)Ordered By: Pedro Parks on 62-60-9078Alcypxtjjai/100 WBC (Bld)Automated eosinophil %. [facility] CampusEpithelial cells.squamous [#/area] in Urine sediment by Automated countOrdered By: Pedro Parks on 91-81-3861Fxjvjdzgex cells.squamous Auto (Urine sed) [#/Area]Epithelial cells.squamous [#/area] in Urine sediment by Automated countHigh0-2FParkwood Hospital Erythrocyte distribution width Auto (RBC) [Ratio]Ordered By: Pedro Parks on 80-61-9100Tflknmeehmm distribution width (RBC) [Ratio]Erythrocyte distribution width [Ratio] by Automated count11.9-15.3FParkwood HospitalErythrocytes [#/area] in Urine sediment by Automated countOrdered By: Pedro Parks on 68-09-0736VUS Auto (Urine sed) [#/Area]Erythrocytes [#/area] in Urine sediment by Automated countHigh0-4FParkwood HospitalGlobulin Calc (S) [Mass/Vol]Ordered By: Pedro Parks on 04-05-2024 Globulin (S) [Mass/Vol]Serum globulin measurement by calculation (mass/volume) [facility] CampusGlucose [Mass/volume] in Serum or PlasmaOrdered By: Pedro Parks on 97-31-0080Yfmvdea [Mass/Vol]Glucose [Mass/volume] in Serum or Bzyxbv07-726VowzgkaivKettering Health Main CampusComment on above:ADA recommended reference rangeRandom Glucose Reference Range is dependent on time and content of last meal. Glucose of more than 200 mg/dL in a nonstressed, ambulatory subject supports the diagnosisof Diabetes Mellitus.Glucose [Mass/volume] in Urine by Test stripOrdered By: Pedro Parks on 04-05-2024 Glucose Test strip (U) [Mass/Vol]Glucose [Mass/volume] in Urine by Test strip NormalKettering Health Main CampusHCG ( test) IA.rapid Ql (U) Ordered By: Pedro Parks on 60-69-2503LQE ( test) Ql (U)Urine human chorionic gonadotropin (hCG) detection by immunoassayKettering Health Main CampusHCG,Urineon 53-69-1667Nfqv HCG ( test) Ql (U)Negative NormalThe [facility] Physician GroupComment on above:Result Comment: PERFORMED BY: [place] [address] PATHOLOGIST HOUSE CARPENTER HELPER FARZANEH TORRES M.D.Performed By: #### [facility] #### [place] [address] USAHematocrit Auto (Bld) [Volume fraction]Ordered By: Pedro Parks on 71-60-3288Hkomvrzhtl (Bld) [Volume fraction]Hematocrit [Volume Fraction] of Blood by Automated count34.0-46.4FParkwood HospitalHemoglobin Test strip Ql (U)Ordered By: Pedro Parks on 04-05-2024 Hemoglobin Ql (U)Hemoglobin [Presence] in Urine by Test stripHighNegative [facility] CampusHemoglobin [Mass/volume] in BloodOrdered By: Pedro Parks on 83-72-1872Jyirxetnru (Bld) [Mass/Vol]Hemoglobin [Mass/volume] in Blood11.8-15.4FParkwood HospitalHyaline casts [#/area] in Urine sediment by Automated countOrdered By: Pedro Parks on 90-15-2142Cfmaxpx casts Auto (Urine sed) [#/Area]Hyaline casts [#/area] in Urine sediment by Automated count0-8[facility] CampusINR in Platelet poor plasma by Coagulation assayOrdered By: Pedro Parks on 24-26-2398KXY Coag (PPP) [Relative time]INR in Platelet poor plasma by Coagulation assay [facility] CampusComment on above:INR Therapeutic Range A) Pre- and Peroperative OAT started two weeks before surgery. NOT HIP SURGERY: 1.5 - 2.5 HIP SURGERY: 2 - 3B) Primary and secondary prevention of venous THROMBOSIS: 2 - 3C) Active venous thrombosis, pulmonary embolismand prevention of recurrent venous thrombosis: 2 - 3D) Prevention of arterial thromboembolismincluding patients with mechanical heart valves: 3 - 4.5Ketones Test strip Ql (U)Ordered By: Pedro Parks on 96-43-0758Eousivj Ql (U)Ketones [Presence] in Urine by Test stripNegSelect Medical Specialty Hospital - AkronLeukocyte clumps [Presence] in Urine by AutomatedOrdered By: Pedro Parks on 19-93-6014Bjswlkdvs clumps Auto Ql (U)Leukocyte clumps [Presence] in Urine by AutomatedHighNone Seen [facility] CampusLeukocyte esterase [Presence] in Urine by Test stripOrdered By: Pedro Parks on 90-85-4565Wprrkynpn esterase Test strip Ql (U)Leukocyte esterase [Presence] in Urine by Test stripHighNegSelect Medical Specialty Hospital - AkronLeukocytes [#/area] in Urine sediment by Automated count Ordered By: Pedro Parks on 27-14-0046PYN Auto (Urine sed) [#/Area] Leukocytes [#/area] in Urine sediment by Automated countHigh04FParkwood HospitalLeukocytes [#/volume] corrected for nucleated erythrocytes in Blood by Automated counOrdered By: Pedro Parks on 54-10-0447QUM corrected for nucl RBC Auto (Bld) [#/Vol]Leukocytes [#/volume] corrected for nucleated erythrocytes in Blood by Automated coun3.8-11.6FParkwood HospitalLymphocytes Auto (Bld) [#/Vol]Ordered By: Pedro Parks on 12-57-8129Nzhmwfatjqn (Bld) [#/Vol]Lymphocytes [#/volume] in Blood by Automated count1.00-4.8[facility] CampusLymphocytes/100 WBC Auto (Bld)Ordered By: Pedro Parks on 13-91-2394Iksvzykixas/100 WBC (Bld) Lymphocytes/100 leukocytes in Blood by Automated count.[facility]HealthH Auto (RBC) [Entitic mass]Ordered By: Pedro Parks on 24-31-2701VOR (RBC) [Entitic mass]MCH [Entitic mass] by Automated count24.7-34.3 OhioHealthHC Auto (RBC) [Mass/Vol]Ordered By: Pedro Parks on 05-04-5629TVDE (RBC) [Mass/Vol]MCHC [Mass/volume] by Automated count 32.0-35.0OhioHealthV Auto (RBC) [Entitic vol]Ordered By: Pedro Parks on 12-93-7681BXU (RBC) [Entitic vol]MCV [Entitic volume] by Automated sbifn60-236AkmplfkugKettering Health Main CampusMonocyte distribution width [Entitic volume] in Blood by AutomatedOrdered By: Pedro Parsk on 01-11-9240Paqgbiga distribution width Auto (Bld) [Entitic vol]Monocyte distribution width [Entitic volume] in Blood by Automated0.00-20.00[facility] CampusMonocytes Auto (Bld) [#/Vol]Ordered By: Pedro Parks on 92-57-2890Xvcsjhlri (Bld) [#/Vol]Automated blood monocyte count0.0-0.8 [facility] CampusMonocytes/100 WBC Auto (Bld)Ordered By: Pedro Parks on 56-42-9581Ccoukgzeu/100 WBC (Bld)Automated monocyte %. [facility] CampusMucus [Presence] in Urine by AutomatedOrdered By: Pedro Parks on 04-47-6441Vhijd Auto Ql (U)Mucus [Presence] in Urine by AutomatedAbnormalKettering Health Main CampusNeutrophils Auto (Bld) [#/Vol]Ordered By: Pedro Parks on 52-18-6407Ohiqbxwbbwr (Bld) [#/Vol] Neutrophils [#/volume] in Blood by Automated count1.8-7.7FParkwood HospitalNeutrophils/100 WBC Auto (Bld)Ordered By: Pedro Parks on 64-22-4727Wrobxxsmaxf/100 WBC (Bld)Automated neutrophil %.[facility] CampusNitrite Test strip Ql (U)Ordered By: Pedro Parks on 04-19-8001Vjqrzvk Ql (U)Nitrite [Presence] in Urine by Test stripNegative [facility] CampusNo Panel InformationOrdered By: Pedro Parks on 63-85-0950Cvfuukrrq GFR (CKD-EPI)> 60.0 mL/MinKettering Health Main CampusPharmacy Creatinine Clearance (Chem82.54[facility] CampusNucleated erythrocytes [Presence] in Blood by Automated countOrdered By: Pedro Parks on 40-52-8399Bahduvtrt RBC Auto Ql (Bld)Nucleated erythrocytes [Presence] in Blood by Automated count0-0.5FParkwood Hospital Platelet mean volume Auto (Bld) [Entitic vol]Ordered By: Pedro Parks on 65-94-3325Dqsjtmvb mean volume (Bld) [Entitic vol]Platelet mean volume [Entitic volume] in Blood by Automated count6.3-10.7FParkwood Hospital Platelets Auto (Bld) [#/Vol]Ordered By: Pedro Parks on 28-64-3871Fdnphjopo (Bld) [#/Vol]Platelets [#/volume] in Blood by Automated oevkt393-606NwemkrufzKettering Health Main CampusPotassium [Moles/volume] in Serum or PlasmaOrdered By: Pedro Parks on 57-82-7377Wftoshnpz [Moles/Vol]Potassium [Moles/volume] in Serum or Plasma3.5-5.1FParkwood HospitalProtein Test strip (U) [Mass/Vol]Ordered By: Pedro Parks on 07-27-5298Hrlebme (U) [Mass/Vol] Protein [Mass/volume] in Urine by Test stripHighNegativeKettering Health Main CampusProtein [Mass/volume] in Serum or PlasmaOrdered By: Pedro Parks on 55-28-0651Dtfvumw [Mass/Vol]Protein [Mass/volume] in Serum or Plasma 6.4-8.9[facility] CampusProthrombin time (PT)Ordered By: Pedro Parks on 39-04-6650CF Coag (PPP) [Time]Prothrombin time (PT)9.0-12.9 [facility] CampusComment on above:A hematocrit value greater than 55% may lead to inaccurate results in coagulation testing. Patientshaving hematocrit values >55% require a special collection tube for coagulation studies. Please contact the laboratory at [phone] for redraw instructions. RBC Auto (Bld) [#/Vol]Ordered By: Pedro Parks on 39-40-6778LXQ (Bld) [#/Vol]Erythrocytes [#/volume] in Blood by Automated countHigh3.60-5.00Grant Hospitalerum or plasma albumin/globulin mass ratioOrdered By: Perdo Parks on 02-80-7996Ehsuhqk/Globulin [Mass ratio]Serum or plasma albumin/globulin mass ratioGrant Hospitalerum or plasma anion gap determinationOrdered By: Pedro Parks on 77-25-3857Rsust gap [Moles/Vol]Serum or plasma anion gap determination6.0-15.0Grant Hospitalodium [Moles/volume] in Serum or PlasmaOrdered By: Pedro Parks on 44-73-5663Lmambx [Moles/Vol]Sodium [Moles/volume] in Serum or Plasma 136-145Grant Hospitalpecific gravity Test strip (U) [Rel density]Ordered By: Pedro Parks on 62-67-0054Ayfpfpzt gravity (U) [Rel density]Specific gravity of Urine by Test strip1.001-1.030[facility] CampusUrea nitrogen [Mass/volume] in Serum or PlasmaOrdered By: Pedro Parks on 93-89-0982Kjsr nitrogen [Mass/Vol]Urea nitrogen [Mass/volume] in Serum or Plasma7-25[facility] Main CampusUrine Cultureon 43-25-1304Wggvvcpw identified Cx Nom (U)No Growth 2 Days PERFORMED BY: [place] [address] PATHOLOGIST HOUSE CARPENTER HELPER FARZANEH TORRES M.D.NormalThe [facility] Physician GroupComment on above: Performed By: #### CUU, ADDONUAPLUS #### [place] [address] USAUrobilinogen Test strip (U) [Mass/Vol]Ordered By: Pedro Parks on 27-75-1813Lwwgeroxvboi (U) [Mass/Vol]Urobilinogen [Mass/volume] in Urine by Test stripNormalKettering Health Main CampusWBC Auto (Bld) [#/Vol]Ordered By: Pedro Parks on 38-49-0216AZG (Bld) [#/Vol] Leukocytes [#/volume] in Blood by Automated count3.8-11.6FParkwood HospitalaPTT in Platelet poor plasma by Coagulation assayOrdered By: Pedro Parks on 94-23-3748fZFO Coag (PPP) [Time]Activated partial thromboplastin time (aPTT) in platelet poor plasma by coagulation a25.1-36.5 [facility] CampusComment on above:A hematocrit value greater than 55% may lead to inaccurate results in coagulation testing. Patientshaving hematocrit values >55% require a special collection tube for coagulation studies. Please contact the laboratory at [phone] for redraw instructions. pH Test strip (U)Ordered By: Pedro Parks on 16-53-0677uL (U)pH of Urine by Test strip5.0-9.0[facility] CampusProvider Letteron 03-31-2024 Provider LetterProvider Letter March 31, 2024 CHANCE JACOBS [address] [place] [id number] : 1985 To Whom It May Concern, Please excuse above patient from work. Date of Illness: From: 03/24/2024 To: 04/30/24 May Return to Work On: 05/01/24 Restrictions: None Comments: Patient had a surgical procedure on 03/30/24. No work 03/24/24- 04/30/24. Return to work 05/01/24. Sincerely, [facility] NoMorrow County HospitalAmbulatory Visit Summaryon [id number] Visit SummaryAmbulatory Visit Summary CHANCE JACOBS :1985 Visit Date:03/24/2024 [...] with SYMONE OLVERA, ANNITA Schofield When: Where: [address] [place] [address]- Medications What How Much When Instructions Unchanged [...] are painful or that are stopping you frombeing able to pee. Tell a health care provider about: ??? Any allergies you have. ??? All medicines you are taking, including vitamins, herbs, eye drops, creams, and gbxe-wtf-zlbueuv medicines. ??? Any problems you or family [...] These include any diabetes medicines or blood thinnersyou take. ? Taking medicines such as aspirin and ibuprofen. These medicines can thin your blood. Do not take them unless your provider tells you to. ? Taking kyjw-hzu-paawxyi medicines, vitamins, herbs, and supplements. Tests ??? [...] not use any produc (more content not included)...[facility] HospitalProvider Letteron [phone] LetterProvider Letter March 24, 2024 CHANCE JACOBS [address] [place] [address] : 1985 To Whom It May Concern, Please excuse above patient from work. Date of Illness: From: 03/24/24 To: 04/02/24 May Return to Work On:04/03/24 Restrictions: No work 03/24/24- 04/02/24 Comments: Patient is having surgery 03/30/[address] Valente. She will be off work 03/24/24- 04/02/24. Sincerely, [facility] Dr. Deangelo GarzaAtrium Health Wake [facility] Davie Medical Centerholden Holy Cross HospitalMRI LSPINE WO CONon 54-74-2780XDU LSPINE WO CONEXAMINATION: MRI LSPINE WO CON HISTORY: Low back [...] Electronically authenticated by: CARLI RODRIGUEZ Date: 2022-04-22 16:27[facility] ABD/PELVIS WO CONon [id number] ABD/PELVIS WO CON EXAMINATION: CT ABD/PELVIS WO [...] Electronically authenticated by: VERITO ESPOSITO Date: 2022-04-20 09:15[facility] L[facility]INE MIN 4 VIEWSon 22-88-7743GR LSPINE MIN 4 VIEWS EXAMINATION: XR LSPINE [...] Electronically authenticated by: CARLI RODRIGUEZ Date: 2022-04-09 18:35[facility] CONon 04-64-1252ELM ANKLE RT WO CONHISTORY: Chronic right foot pain. Possible plantar fasciitis. [...] Electronically authenticated by: TORITO JOSHI Date: 2022-03-09 17:09[facility] HospitalXR FOOT ROXANA MIN 3 VIEWSon 79-35-5163HO FOOT ROXANA MIN 3 VIEWS EXAMINATION: XR [...] Electronically authenticated by: VERITO ESPOSITO Date: 2022-03-04 16:29[facility] HospitalCovid-19 PCR (CVDTBH)on 56-03-0988YPLB-CoV-2 (COVID-19) RNA CHICO+probe Ql (Unsp spec)DetectedCritically abnormalNOT DETECTEDThe [facility] on above:Result Comment: This test is not yet approved or cleared by the [place] FDA. When there are no FDA-approved or cleared tests available, and other criteria are met, FDA can make tests available under an emergency access mechanism called an Emergency Use Authorization (EUA). The EUA for this test is supported by the [place] of Health and Human Service's (HHS's) declaration [...] no longer be used). Performed By: #### CVDTBH #### [facility] [address] [place] [address] Dr. Rozina De La Cruz Vital Signs Date TimeVital SignValuePerforming PbbvhmkndLjfmalkb46-97-2305 19:34-0500Body htywpiadghp12 [degF]Pedro Parks DO Work Phone: [facility]02-19-2025 19:34-0500 Diastolic blood mkiigdfg57 mm[Hg]Pedro Gundersonister DO Work Phone: [phone] [place], [place] 7663302-19-2025 19:34-0500 Heart rate79 /minAlexander Keister DO Work Phone: [facility]02-19-2025 19:34-0500 Respiratory rate18 /minAlexander Keister DO Work Phone: [phone]02-19-2025 19:34-0500 SaO2% (BldA) [Mass fraction]98 %Pedro Parks DO Work Phone: [phone]02-19-2025 19:34-0500 Systolic blood xgxurieu969 mm[Hg]Pedro Parks DO Work Phone: [facility]02-19-2025 10:13-0500 Body .02 cmAlexmonie Parks DO Work Phone: [facility]02-19-2025 10:13-0500 Body xowdni38.2 kgAleronitjagjitholden Keister DO Work Phone: [facility]02-07-2025 09:13-0500 Blood Pressure LocationPatrick VALENTE [facility]02-07-2025 09:13-0500Diastolic blood mm[Hg]Deangelo VALENTE [facility]02-07-2025 09:13-0500Heart rate94 /minPatricstacey VALENTE [facility]02-07-2025 09:13-0500Respiratory rate18 /minPatrick SYMONE [facility]02-07-2025 09:13-0500Systolic blood wlmbmgqa812 mm[Hg]Deangelo VALENTE [facility]10-26-2021 15:45-0400Body heooie479.02 Jackie Mckeon Other [employer] Other 10-26-2021 15:45-0400Body mass index (BMI) [Ratio] 26.21 kg/y0Kyhttjmqhiren Mckeon Other [employer] Other 10-26-2021 15:45-0400Body luxjvl87.13 kgLawrhiren Mckeon Other [employer] Other Encounters Encounter DateEncounter TypeCare ProviderFacilityStart: 68-31-1979epjdehdrlm ILANA MCNEALFacility:CAMILA CarmenevueStart: 57-71-3708kbnqgdcmcnLXWVN SINDI Facility:EU uskyStart: 11-15-2024 End: 83-68-0576ldwxlkqhgmASSVB MCNEALFacility:CAMILA SanduskyStart: 11-15-2024 End: 79-20-5670Ajmbvjp encounter procedurePasummer VALENTE [facility] Start: 08-14-2024 End: 36-47-2255lmwhnkvaicEizzncf R WATERSFacility:EU BellevueStart: 08-14-2024 End: 74-64-0525Mytqqnu encounter procedurePasummer Funes VALENTE [facility] start: 28-65-5033leicmrfnsxJZGXE MCNEALFacility:EU BellevueStart: 05-24-2024 End: 68-26-9723hcshaqkkxsJTTYI MCNEALFacility:EU SanduskyStart: 05-18-2024 End: 59-98-7732Nvecpk OnlyFaith Sindi C[employer] OPERATOR-MANAGER MASS Work Phone: [phone]-FNZM ATLASComment on above:Encounter for general adult medical examination without abnormal findingsEncounter for screening for cardiovascular disordersEncounter for screening for other suspected endocrine disorderStart: 05-18-2024 End: 22-98-1349Zrwsktr encounter statusFaith Sindi CUSTOM FEED [employer]N OPERATOR-MANAGER MASS Work Phone: [facility]: 04-26-2024 End: 76-25-7100nsggurfytkDGOUW MCNEALFacility:EU GiovanyyStart: 04-05-2024 End: 02-57-0783Mwalpmyel department patient visitAlexaBrandenburg Center DO Work Phone: [facility] Work Phone: Start: 03-30-2024 End: 00-31-4741pmizdubinvVBMTB MCNEALFacility:CD:[id number]: 03-24-2024 End: 24-51-1975ddtlffhxebBALQF MCNEALFacility:EU ueStart: 03-24-2024 End: 24-75-4588Ewzlpnd encounter procedureDeangelo Funes VALENTE [facility] start: 07-14-2023 End: 58-29-8192krepzavxcqFCKMQZ MORRISNot AvailableStart: 06-17-2023 End: 48-70-2861qrcyhqmbgcIPKTIQCWXLX HASSETTNot AvailableStart: 06-16-2023 End: 12-63-0014ouejdkiuvvRKSTYQPIMAD HASSETTNot AvailableStart: 06-07-2023 End: 81-69-9803khswukxsiyUYHUQIMQARR HASSETTNot AvailableStart: 03-10-2023 End: 71-66-1472lasthcikyyMoibexDdixo: 05-07-2022 End: 88-69-2836aegrlxmoykZSLJXXDIPHJA LAKSHMIPATHY .Facility:D6Plmbb: 04-22-2022 End: 88-59-6723yzgiffkiqjIGXZVRCLKOEQ LAKSHMIPATHY .Facility:G3Ashqm: 04-20-2022 End: 62-09-4540gkilkgqdypMU RICHARD PITTSFIELDFacility:S7Lytsy: 04-09-2022 End: 35-33-4872qjbbsrcbwiTETTLOPQUTRU LAKSHMIPATHY .Facility:Q4Snbvb: 04-09-2022 End: 93-75-6207sqmlbzsjgmNQZCWVLZTKVO LAKSHMIPATHY .Facility:J9Tcvhb: 03-09-2022 End: 55-28-8152bmmuiqdpqeSRSUN D [facility] Hospitalc[facility]:Y0Wewel: 03-04-2022 End: 68-95-4322qxquacwztkEPZKN D [facility] Hospitalcility:V9Nebqo: 10-24-2021 End: 73-47-9331sxedlfvdpsVE [facility] Centercility:T6Kctvt: 92-52-2547Zixiwo outpatient visit 15 minutesLawrence McCormackFPG Gastroenterology Procedures DateProcedureProcedure DetailPerforming ClinicianStart: 57-49-8307Pftemfqunbk removal of ureteric stentPatrick VALENTE Start: 53-29-9219XB of urinary tractAlexander Keister DO Work Phone: Start: 02-12-3863RubhnxprthTyozqdt VALENTE Start: 82-19-7179Bzhljktddib observation [Identifier] in Cervix by Cyto stainFaith Sindi CUSTOM FEED [employer]N OPERATOR-MANAGER MASS Work Phone: Start: 03-06-2021H/O: surgeryS/P nasal septoplasty Ilana Sindi CUST[employer] FEED [employer]N OPERATOR-MANAGER MASS Work Phone: Start: 19-01-3178Qnqisrc of tonsillectomyS/P tonsillectomyFaith Sindi CUST[employer] FEED [employer]N OPERATOR-MANAGER MASS Work Phone: appendectomyPatrick VALENTE CholecystectomyPatrick VALENTE ColonoscopyPatrick VALENTE History of laser assisted in situ keratomileusisPatrick VALENTE History of tonsillectomyPatrick VALENTE Plan of Treatment DateCare ActivityDetailAuthorStart: 01-74-1248Pfthabids for malignant neoplasm of cervixPap SmearCentral Vermont Medical CenterWarwick Audio Technologies SystemStart: 05-18-2024 End: 79-50-9191RCF W Auto Differential panel - BloodCBC auto differential Lab Routine Encounter for general adult medical examination without abnormal f indings Expected: 05/18/2024, Expires: 05/18/2025[facility] Work Phone: Comment on above:Expected: 05/18/2024, Expires: 05/18/2025Start: 05-18-2024 End: 92-67-7369Djlwtjbvhfkfo metabolic 2000 panel - Serum or PlasmaComprehensive metabolic panel Lab Routine Encounter for general adult medical examination without abnormal findings Expected: 05/18/2024, Expires: 05/18/2025[facility] Work Phone: Comment on above:Expected: 05/18/2024, Expires: 05/18/2025Start: 05-18-2024 End: 15-20-8592Qwujk 1996 panel - Serum or PlasmaLipid profile Lab Routine Encounter for screening for cardiovascular disorders Expected: 05/18/2024, Expires: 05/18/2025[facility] Work Phone: Comment on above:Expected: 05/18/2024, Expires: 05/18/2025Start: 05-18-2024 End: 37-08-8834XEZ with ReflexTSH with Reflex Lab Routine Encounter for screening for other suspected endocrine disorder Expected: 05/18/2024, Expires: 05/18/2025[facility] Work Phone: Comment on above:Expected: 05/18/2024, Expires: 05/18/2025Start: 21-98-7836Otjdtwbt identified in Urine by CultureUrine Culture [facility] Hospitaltart: 55-53-6625Ekhrc cultureGrant Hospitaltart: 94-06-0011Mehqnddnc vaccinationInfluenza Vaccine [facility] SystemStart: 03-26-6061Zmnok BMI ScreeningAdult BMI Screening [facility] Centertart: 11-77-0527PDqW,Tdap and Td Vaccines (1 - Tdap) DTaP,Tdap and Td Vaccines (1 - Tdap)[facility] SystemStart: 1998 Depression ScreeningDepression ScreeningMagruder Hospital SystemStart: 1998 Tobacco ScreeningTobacco ScreeningLicking Memorial HospitalPatient Education Urinary tract infection - Discharge instructionsRegency Hospital [facility] Ctr Work Phone: Patient referralRegency Hospital Toledo Ctr Work Phone: Immunizations Immunization DateImmunizationNotesCare ManqogsgQayliorj59-86-4707RTNEZ-33 mRNA- 1273 (Moderna)Pedro Parks DO Work Phone: [facility] Campus[facility] on above: Result Comment: 2024-08-14: OYH8976-36-0869YIUSL-14 mRNA-1273 (Moderna)Pedro Parks DO Work Phone: [facility] CampusComment on above: Result Comment: 2024-08-14: WBM8043-20-4827Ubvfkuc per 15 mgLharman Mckeon Other [place] Other Payers DatePayer CategoryPayerPolicy [id number] Cross Blue Shield Managed Care - OtherANTHEM Member Subscriber Plan / Payer (Effective 2020-Present) Name: Osmar Welshdorian Chance Ann Relation to Subscriber: Self Name: Malcolm Chinoruth ann Andrews Payer ID: [id number] (NAIC) Type: Not on file Address: [address] [place] [id number]'s Comp, Other (unspecified)WORKER'S COMPENSATION [id number]18.301.33731-05-0293Qodopmwjvt Managed Care - PPOMEDICAL MUTUAL .2.840.784647.1.13.424.2.7.9.784144.402.90665-06-0686 [id number] 2.16.840.1.529017.3.579.[id number] 2.16840.1.753857.3.579.2.83136-09-1522Lmbeamz5341308 2.16840.1.266107.3.57[id number] 2.16.840.1.143303.3.579.2.17913-98-0020Stzhxbr8652466 2.16840.1.055386.3.579.2.95107-20-0163Vsawfja6960357 2.840.1.076316.3.579.2.94520-94-1856Qmckfhb7447556 2.16840.1.714146.3.579.2.51998-39-0115Cgjcjpt5775198 2.16840.1.779705.3.579.2.47494-42-3427Tkcsnrn7960437 2.16840.1.468501.3.579.2.160967-10-5816Cnzqjkv0752792 2.16840.1.070158.3.579.2.176316-65-6043Iywylqf0885316 2.16840.1.879371.3.579.2.368861-23-5399Bqsyows6951098 2.16840.1.413431.3.579.2.[id number] 2.16840.1.131321.3.579.2.60886-30-1402Ynvemjm84754448 2.16840.1.358472.3.579.[id number] 2.16.840.1.525075.3.579.2.05326-99-8982Dregbkw31892132 2.16.840.1.251950.3.57[id number] 2.16.840.1.838196.3.579.2.40068-98-4053Hmjcpkc26239086 2.16.840.1.935124.3.57[id number] 2.16.840.1.479878.3.57[id number] 2.16.840.1.173687.3.579.2.84[id number] 2.0.1.620669.3.579.2.18635-73-6285HcquNew Mexico Behavioral Health Institute at Las [id number] 2.840.1.433095.19Private Health Cvfkxtihx2g943zuq-y31k-2g66-y050-[id number] [facility] [id number] [id number] 2.0.1.766808.3.579.2.531 Social History DateTypeDetailFacilityUnknown if ever smokedN[place] Other Start: 03-28-2020 End: 56-32-7258Pvv Assigned At [facility] CenterStart: 03-24-2024 End: 83-34-2028Mxcujzr smoking statusNever smoked tobacco (finding)[facility] CenterStart: 09-20-2014 End: 11-09-5226FnzSdjoes (finding)[facility] CenterStart: 06-47-7664Sss Assigned At [facility] CenterStart: 99-65-8345Nkbblow use and exposureSmokeless tobacco non-userMagruder Hospital SystemStart: 92-61-9358Cerrvotuq beverage intakeEx-drinker (finding)[facility] SystemStart: 03-28-2020 End: 44-51-5708Tkyqqjg of Social functionLicking Memorial HospitalAdolescent depression screening unkmzlzfme5IncDdhaddNovant Health Thomasville Medical Centertart: 33-49-3758Arr assigned at birthNot on fileNovant Health Thomasville Medical Centerexual OrientationExec[facility] NEGATED: Highlighted [facility] Functional Status SoutQyyxasufjeRzkfjyJxdityto34-56-7783Cedwlcfefq StatusN/AExec[facility] Clinical Notes 12-10-2020 to 08-14-2024 Note Date & EgnzVjhiQkkidurq42-26-0527 Hospital Discharge instructions Patient Education 08/14/2024 12:04:45 Dysuria Dysuria Dysuria is pain or discomfort during urination. The pain or discomfort may be felt in the part of the body that drains urine from the bladder (urethra) or in the surrounding tissue of the genitals. The pain may also be felt in the groin area, lower abdomen, or lower back. You may have to urinate frequently or have the sudden feeling that you have to urinate (urgency). Dysuria can affect anyone, but it is more common in females. Dysuria can be caused by many different things, including: Urinary tract infection. Kidney stones or bladder stones. Certain STIs (sexually transmitted infections), such as chlamydia. Dehydration. Inflammation of the tissues of the vagina. Use of certain medicines. Use of certain soaps or scented products that cause irritation. Follow these instructions at home: Medicines Take mnuu-bnb-ryuotdg and prescription medicines only as told by your health care provider. If you were prescribed an antibiotic medicine, take it as told by your health care provider. Do notstop taking the antibiotic even if you start to feel better. Eating and drinking Drink enough fluid to keep your urine pale yellow. Avoid caffeinated beverages, tea, and alcohol. These beverages can irritate the bladder and make dysuria worse. In males, alcohol may irritate the prostate. General instructions Watch your condition for any changes. Urinate often. Avoid holding urine for long periods of time. If you are female, you should wipe from front to back after urinating or having a bowel movement. Use each piece of toilet paper only once. Empty your bladder after sex. Keep all follow-up visits. This is important. If you had any tests done to find the cause of dysuria, it is up to you to get your test results. Ask your health care provider, or the department that is doing the test, when your results will be ready. Contact a health care provider if: You have a fever. You develop pain in your back or sides. You have nausea or vomiting. You have blood in your urine. You are not urinating as often as you usually do. Get help right away if: Your pain is severe and not relieved with medicines. You cannot eat or drink without vomiting. You are confused. You have a rapid heartbeat while resting. You have shaking or chills. You feel extremely weak. Summary Dysuria is pain or discomfort while urinating. Many different conditions can lead to dysuria. If you have dysuria, you may have to urinate frequently or have the sudden feeling that you have tourinate (urgency). Watch your condition for any changes. Keep all follow-up visits. Make sure that you urinate often and drink enough fluid to keep your urine pale yellow. This information is not intended to replace advice given to you by your health care provider. Make sure you discuss any questions you have with your health care provider. Document Revised: 09/13/2020 Document Reviewed: 09/13/2020 [employer] Patient Education 2023 [employer] Follow Up Care 08/11/2024 13:16:26 With:SYMONE OLVERA, Deangelo Funes, URL Address: [facility] [address] [place] [address] [phone] When: Unknown [facility] 06-30-2025 NotePatient Education Urology Dysuria Dysuria is pain or discomfort during urination. The pain or discomfort may be felt in the part of the body that drains urine from the bladder (urethra) or in the surrounding tissue of the genitals. The pain may also be felt in the groin area, lower abdomen, or lower back. You may have to urinate frequently or have the sudden feeling that you have to urinate (urgency). Dysuria can affect anyone, but it is more common in females. Dysuria can be caused by many different things, including: ??? Urinary tract infection. ??? Kidney stones or bladder stones. ??? Certain STIs (sexually transmitted infections), such as chlamydia. ??? Dehydration. ??? Inflammation of the tissues of the vagina. ??? Use of certain medicines. ??? Use of certain soaps or scented products that cause irritation. Follow these instructions at home: Medicines ??? Take nzen-yvf-khyyzlo and prescription medicines only as told by your health care provider. ??? If you were prescribed an antibiotic medicine, take it as told by your health care provider. Donot stop taking the antibiotic even if you start to feel better. Eating and drinking ??? Drink enough fluid to keep your urine pale yellow. ??? Avoid caffeinated beverages, tea, and alcohol. These beverages can irritate the bladder and make dysuria worse. In males, alcohol may irritate the prostate. General instructions ??? Watch your condition for any changes. ??? Urinate often. Avoid holding urine for long periods of time. ??? If you are female, you should wipe from front to back after urinating or having a bowel movement. Use each piece of toilet paper only once. ??? Empty your bladder after sex. ??? Keep all follow-up visits. This is important. ??? If you had any tests done to find the cause of dysuria, it is up to you to get your test results. Ask your health care provider, or the department that is doing the test, when your results will be ready. Contact a health care provider if: ??? You have a fever. ??? You develop pain in your back or sides. ??? You have nausea or vomiting. ??? You have blood in your urine. ??? You are not urinating as often as you usually do. Get help right away if: ??? Your pain is severe and not relieved with medicines. ??? You cannot eat or drink without vomiting. ??? You are confused. ??? You have a rapid heartbeat while resting. ??? You have shaking or chills. ??? You feel extremely weak. Summary ??? Dysuria is pain or discomfort while urinating. Many different conditions can lead to dysuria. ??? If you have dysuria, you may have to urinate frequently or have the sudden feeling that you have to urinate (urgency). ??? Watch your condition for any changes. Keep all follow-up visits. ??? Make sure that you urinate often and drink enough fluid to keep your urine pale yellow. This information is not intended to replace advice given to you by your health care provider. Make sure you discuss any questions you have with your health care provider. Document Revised: 09/13/2020 Document Reviewed: 09/13/2020 [employer] Patient Education ? 2023 [employer] 05-24-2024 NotePatient Education Nephrology Dietary Guidelines to Help Prevent [...] labels. Limit your salt (sodium) intake to lessthan 1,500 mg a day. ??? Choose foods with calcium for each meal and snack. Try to eat about 300 mg of calcium at each meal. Foods that contain 200?500 mg of calcium a serving include: ? 8 oz (237 mL) of milk, ddhtnsw-vcibwqytskpi-ihevr milk, and calcium- fortifiedfruit juice. Calcium-fortified means that calcium has been [...] on the table and allow each person toadd their own salt to taste. ??? Use [...] Spinach (cooked), rhubarb, beets, sweet potatoes, and Nauruan chard. ? Peanuts. ? Potato chips, citizen of [place] fries, and baked potatoes with skin on. ? Nuts and nut products. ? Chocolate. ??? If you regularly take a diuretic medicine, make sure to eat at least 1 or 2 servings of fruits or vegetables that are high in potassium each day. These include: ? Avocado. ? Banana. ? [place], prune, carrot, or tomato juice. ? Baked potato. ? Cabbage. ? Beans and split peas. Lifestyle ??? Drink enough fluid to keep your urine pale yellow. This is the most important thing you can do.Spread your fluid intake throughout the day. ??? [...] fish oil, or vitamin B6. ??? Take pyap-ubu-bqejmbw and prescription medicines only as told by your health (more content not included)...[facility]03-12-2025 NotePatient Education Nephrology Dietary Guidelines to Help Prevent [...] labels. Limit your salt (sodium) intake to lessthan 1,500 mg a day. ??? Choose foods with calcium for each meal and snack. Try to eat about 300 mg of calcium at each meal. Foods that contain 200?500 mg of calcium a serving include: ? 8 oz (237 mL) of milk, sfqdtcu-qgnvpptmlsiy-dzrip milk, and calcium- fortifiedfruit juice. Calcium-fortified means that calcium has been [...] on the table and allow each person toadd their own salt to taste. ??? Use [...] Spinach (cooked), rhubarb, beets, sweet potatoes, and Nauruan chard. ? Peanuts. ? Potato chips, citizen of [place] fries, and baked potatoes with skin on. ? Nuts and nut products. ? Chocolate. ??? If you regularly take a diuretic medicine, make sure to eat at least 1 or 2 servings of fruits or vegetables that are high in potassium each day. These include: ? Avocado. ? Banana. ? [place], prune, carrot, or tomato juice. ? Baked potato. ? Cabbage. ? Beans and split peas. Lifestyle ??? Drink enough fluid to keep your urine pale yellow. This is the most important thing you can do.Spread your fluid intake throughout the day. ??? [...] fish oil, or vitamin B6. ??? Take cydc-fea-uuahywj and prescription medicines only as told by your health (more content not included)...[facility]02-19-2025 Radiology Diagnostic study [facility] [place] [address] [place] [address] CT Scan Report Signed Patient: Chance Jacobs MR# : [id number] : 1985 Acct:[id number] Age/Sex: 39 / F ADM Date: 5 Loc: ER Room: Type: [facility] ER Attending Dr: Copies to: Pedro Parks DO~ Ordering Provider: Pedro Parks DO [...] of the left ureteral stent. Proximal end ofthe stent is in the lower pole moiety. Impression dictated by: Bob Mead M.D.04/05/2024 3:00 PM Dictation Location: RADIO-PC-19 Transcribed By: STACY 04/05/24 1500 Dictated By: Bob Mead DO 04/05/24 1450 Signed By: 04/05/24 1500 [facility]02-07-2025 Hospital Discharge instructions Patient Education 03/24/2024 10:01:50 Laser Therapy [...] are painful or that are stopping you frombeing able to pee. Tell a health care provider about: Any allergies you have. All medicines you are taking, including vitamins, herbs, eye drops, creams, and thas-epr-mckpsjo medicines. Any problems you or family members [...] unless your provider tells you to. ?Taking tjdo-tlk-mzlslly medicines, vitamins, herbs, and supplements. Tests You [...] for at least 4 weeks before the procedure.These products include cigarettes, chewing tobacco, and vaping [...] blood oxygen level will be monitored until youleave the hospital or clinic. If you had [...] provider. Document Revised: 10/02/2022 Document Reviewed: 10/02/2022 [employer] Patient Education 2023 [employer] Follow Up Care 03/22/2024 15:40:31 With:SYMONE OLVERA, Deangelo Funes, URL Address: [address] [place] [address]- When: Unknown [facility] 02-07-2025 NoteUrology Office/Clinic Note Chief Complaint referral kidney stone HPI Staff 39yr old female pt referred for history of impacted kidney stones. She is currently having left side pain that started in her abdomen on 03/19/24. It then moved up to her rib and flank area on 03/21/24. She has been having pain since. She was given Flomax and Toradol. Z[facility]AIB completed at [facility] on 03/23/24. - are faxing over [...] after having to drink prior to ZOHAIB. Ptstates this is new. C/o left-sided pain that [...] Contact Information SYMONE OLVERA, Deangelo Funes, URL [address] [place], [place] [address]- Additional Instructions: Schedule L laser litho Patient Education Laser Therapy for Kidney Stones IIrasema, personally scribed for Dr. Valente on 03/24/2024 10:05:51. Electronically signedby oscar Amato on 03/24/2024 10:05:51. Documentation recorded by the scribe, Irasema Amato, accurately reflects the services(s) I performed and decisions made by me. Authenticated by Dr. Valente on 03/24/2024 10:08:50. Problem List/Past Medical History Ongoing Asthma Bipolar disorder Depression Head ache Hydronephrosis with obstructing calculus Kidney stone Historical No qualifying data Procedure/Surgical History Appendectomy, Cholecystectomy, Colonoscopy, History of tonsillectomy. Medicat (more content not included)...[facility]:Result Comment: Electronically Signed By: Deangelo VALENTE MD\.br\Date and Time Signed: 03/24/24 10:08 EST\.br\Electronically Co-Signed By: Irasema Amato.br\Date and Time Co-Signed: 03/24/2509:06 [id number] NotePatient Education Nephrology Laser Therapy for Kidney Stones [...] are painful or that are stopping you frombeing able to pee. Tell a health care provider about: ??? Any allergies you have. ??? All medicines you are taking, including vitamins, herbs, eye drops, creams, and aalk-ycp-qcsrsdo medicines. ??? Any problems you or family [...] your provider tells you to. ? Taking dypz-iij-sgegbby medicines, vitamins, herbs, and supplements. Tests ??? [...] tube. The laser will be used to breakup the kidney stones. ??? A tool with [...] and blood oxygen level will be monitored untilyou leave the hospital or clinic. ??? If you had a stent placed, it may have a string that will be secured to your skin. This helps yo (more content not included)...[facility] 05-07-2022 NoteCONSULTATION CONSULTATION DATE: 05/07/2022 TO: Dr. Epstein CHIEF COMPLAINT: Severe bilateral lower back pain, [...] the outlined plan. Her Oswestry scale was 10.[facility] [id number] NotePAIN MANAGEMENT CONSULTATION CONSULTATION DATE: 04/08/2022 CHIEF COMPLAINT: Right lower [...] the office after she undergoes her imaging studies.[facility] [id number] Evaluation note* Encounter Date Diagnosis Assessment Notes Treatment Notes Treatment Clinical Notes Nov, Abdominal pain (ICD-10 - R10.9) Nov,Nausea and vomiting (ICD-10 - R11.2) Nov,iarrhea (ICD-10 - R19.7) PT GIVEN COPY OF LOW FODMAP DIET RTO 6 WEEKS Nov,Hiatal hernia (ICD-10 - K44.9) [facility] Other Evaluation + Plan note No data available for this section [facility] evaluation + Plan note Future Appointments Appointment Date:11/15/2024 02:45:00 PM Scheduled Provider:Deangelo VALENTE MD Location:[facility] Appointment Type:URO Office Visit Appointment Date:01/24/2025 09:15:00 AM Scheduled Provider:Deangelo VALENTE MD Location:[facility] Appointment Type:URO Office Visit Future Scheduled Tests Radiology* XR Abdomen 1 View 04/15/25 [facility] evaluation + Plan note Future Appointments Appointment Date:05/21/2025 09:15:00 AM Scheduled Provider:[facility] Office Visit Future Scheduled Tests Radiology* XR Abdomen 1 View 04/15/25 [facility] Evaluation noteNo assessment information available [facility] Work Phone: Evaluation note* Diagnosis Encounter for general adult medical examination without abnormal findings documented [facility] this [facility] Diagnosis Encounter for screening for cardiovascular disorders [facility] Diagnosis Encounter for screening for other suspected endocrine disorder documented in this [facility] System[facility] general Narrative - Reported* Type Description Date Medical History anxiety Medical HistoryasthmaSurgical Whjnvjznnxxewrcihgnfte8786Irshyfrw Historyoral surgerySurgical Ukiwpfritdeqbokqlhu2869Cwcybshf HistoryKIDNEY SCRAPPED OUT Hospitalization Historysee above health history [facility] Other Hospital Discharge instructions Additional Instructions Follow-up with your urologist Return [facility] Hospital Discharge instructions No data available for this section [facility] [place] InstructionsNot on filedocumented in this encounter [facility] No data available for this section [facility] Jair Summary Purpose Family History No Family History Records Found Relationship Condition Age at Onset Recorded Date/T sanjay father Malignant neoplasm of colon Unknown History of malignant neoplasm of kidneyUnknownMalignant neoplasm of liverUnknown motherAsthmaUnknownfatherMalignant neoplasmUnknown Advance Directives No Advanced Directives Records Found Advance Directive Response Recorded Date/ Time Advance Directives No March 12:13pm Chief Complaint and Reason for Visit Chief Complaint Admit Date blood in urine April 05, 2024 9:38am Additional Source Comments REASON FOR VISIT (unrecogniz ed section and content) colonoscopy follow up on 10-16 for Abdominal pain, nausea, vomiting and diarrhea. INFORMATION SOURCE (unrecogn ized section and content) DATE CREATED AUTHOR 05/10/2022 [facility] DATE CREATED AUTHOR AUTHOR'S ORGANIZ ATION 03/12/2023 [facility] DATE CREATED AUTHOR AUTHOR'S ORGANIZ ATION 07/15/2023 [facility] DATE CREATED AUTHOR AUTHOR'S ORGANIZ ATION 04/15/2024 [facility] DATE CREATED AUTHOR AUTHOR'S ORGANIZ ATION 11/18/2024 [facility] Patient Care team informatio n (unrecognized section and content) Team Status: Active Member Role Status Dates Ilana Delong APRN Primary Care Provider Active Team Status: Inactive Member Role Status Dates Pedro Parks DO Emergency Provider Active Start: April 05, 2024 End: April 05, 2024[facility] Care ProviderActiveStart: April 05, 2024 End: April 05, 2024Team MemberRelationshipSpecialtyStart DateEnd Date Richard Epstein DO PCP - GeneralFamily Medicine09/17/19 Goals (unrecognized section and content) Goals may [...] BE BASED ON THE PRIMARY CLINICAL RECORDS. [facility]. provides no warranty or guarantee of the accuracy or completeness of information in this document.
--- OUTSIDE RECORDS SUMMARY | 2024-12-15 15:33 | XMS_ITS | Clinical Summary ---
Author Organization [employer] tem Address [id number] [place] [address] Care Team Providers Care Strip Catcher Name Role Phone Richard Epstein DO Primary Care Provider [phone] Allergies Active AllergyReactionsCriticalityNoted DateCommentsLamotrigineRashHigh 09/25/2020 Medications MedicationSigDispense QuantityRefillsLast FilledStart DateEnd DateStatus lithium carbonate 300 mg tablet Take 1 tablet (300 mg total) by mouth nightly.Active sertraline (ZOLOFT) 25 mg tablet Take 1 tablet (25 mg total) by mouth nightly. seasonalActive albuterol (PROVENTIL HFA;VENTOLIN HFA) 90 mcg/actuation inhaler Inhale 2 puffs every 6 (six) hours as needed for wheezing.Active sod vlfpj-rtpqky-ldaghv bottle (NEILMED SINUS RINSE COMPLETE) packet with rinse device nasal solution Administer 1 packet into each nostril 2 (two) times a day. 60 packet 01/07/2021ctive mupirocin (BACTROBAN) 2 % ointment Applied intranasally bilaterally 2 times daily 15 g 01/07/2021ctive Additional Information Patient not taking.Reported on 02/26/2022 montelukast (SINGULAIR) 10 mg tablet Indications:Allergic rhinitis, unspecified seasonality, unspecified triggerTake 1 tablet (10 mg total) by mouth in the morning. 30 tablet 1102Active azelastine (ASTELIN) 137 mcg (0.1 %) nasal spray Indications:Allergic rhinitis, unspecified seasonality, unspecified trigger Administer 2 sprays into each nostril in the morning and 2 sprays before bedtime. Use in each nostril as directed. 30 mL ctive fexofenadine (ROD) 180 mg tablet Indications:Allergic rhinitis, unspecified seasonality, unspecified triggerTake 1 tablet (180 mg total) by mouth daily as needed (Allergies). 30 tablet 11002/26/2022ctive Active Problems ProblemNoted DateDiagnosed DatePost-tonsillectomy sirhwcvtdk39/24/2022/P nasal vnrcnuxtxtx42/20/2022/P rxkqhccccough36/20/2022llergic /11/2021 Vtziurrau48/11/2021 Resolved Problems ProblemNoted DateDiagnosed DateResolved DateTonsillitis, bpagmcj4709/25/2020 02/26/2022 Social History Tobacco UseTypesPacks/DayYears UsedDateSmoking Tobacco: NeverSmokeless Tobacco: Never Tobacco Cessation:Counseling Given: Not Answered Alcohol UseStandard Drinks/WeekCommentsNot Currently0 (1 standard drink = 0.6 oz pure alcohol)PHQ-2AnswerDate RecordedTotal Lwqdp1112ChildcareAnswerDate VvqywmkvAcdzrgxggWmzygui97/12/2019EmploymentAnswerDate RecordedEmploymentUnknown 07/27/2018Hunger ScreeningAnswerDate RecordedWithin the past 12 months we worried whether our food would run out before we got money to buy more.Never True02/26/2022Within the past 12 months the food we bought just didn't last and we didn't have money to get more.Never True3Purpose - LifeAnswerDate RecordedPurpose and direction in baagRwcatyb03/11/2021CommentsNoSex and Gender InformationValueDate RecordedSex Assigned at BirthNot on fileLegal Sex Ccueox4809/20/2014 11:33 AM EDTGender IdentityNot on fileSexual OrientationNot on file Last Filed Vital Signs Vital SignReadingTime TakenCommentsBlood Jevuxyxd645/6802 9:14 AM EST Sevbr33617/13/2022 1:22 PM YYMMaelosrzpvz57.4 ??C (97.6 ??F)02/27/2021 12:53 PM ESTRespiratory Qnbt056202/27/2021 1:22 PM ESTOxygen Pqvyplvysr10%02/27/2021 2:00 PM ESTInhaled Oxygen Concentration--Bopevo61.5 kg (162 lb)02/26/2022 9:29 AM EST Lnawdu462 cm (5' 3 )02/26/2022 9:29 AM ESTBody Mass Index28.7002/26/2022 9:29 AM EST Plan of Treatment Health MaintenanceDue DateLast DoneCommentsDepression Frersuiui96/19/1999Tobacco Rubrspnsr56/19/1999DTaP,Tdap and Td Vaccines (1 - Tdap)2005dult BMI Euzdqwiyk38Influenza Hckelmk6210/16/2024Pap Smear10/27/2025 10/27/2022, 10/27/2022 Medical Devices Not on file Procedures Procedure NamePriorityDate/TimeAssociated DiagnosisCommentsHIGH RISK HPV W/ELIANE Yemumhh4010/27/2022 4:44 AM EDT Encounter for screening for human papillomavirus (HPV) Encounter for screening for malignant neoplasm of cervix Contact with and (suspected) exposure to infections with a predominantly sexual mode of transmission from Last 3 Months or Most Recently Relevant to Health Maintenance Results * High risk HPV w/eliane (10/27/2022 4:44 AM EDT)ComponentValueRef RangeTest MethodAnalysis TimePerformed AtPathologist SignatureHpv specimen typeThinPrep 10/28/2022 4:45 AM [facility]Hpv 16NegativeNegative^Negative 11/03/2022 4:56 AM [facility] 18Negative Negative^Ylmjqteg56/19/2023 4:56 AM [facility] LABOther high risk hpvNegativeNegative^Csbcdwng09/19/2023 4:56 AM [facility] LABComment: HPV types 31,33,35,39,45,52,56,58,59,66 and 68 DNA were undetectable. Specimen (Source)Anatomical Location / LateralityCollection Method / Volume Collection TimeReceived EdbrQWFKM66/12/2023 4:44 AM EDT10/28/2022 4:45 AM EDT Narrative Authorizing ProviderResult TypeResult StatusRachel Warren APRN-CNPLAB BLOOD ORDERABLESFinal ResultPerforming OrganizationAddressCity/State/ZIP CodePhone Number [facility] [address] [place] [address] [facility] [address] [place] [address] from Last 3 Months or Most Recently Relevant to Health Maintenance Insurance Care Teams Team MemberRelationshipSpecialtyStart DateEnd Date Richard Epstein DO PCP - GeneralFaspaulding rehabilitation [facility] Medicine09/17/19
--- NOTE | 2024-12-15 15:51 | ED_ITS ---
HPI HPI - General Adult General Chief complaint: Anxiety Stated complaint: ANXIETY Time Seen by Provider: 12/15/24 15:37 Source: patient Mode of arrival: walk-in Limitations: no limitations History of Present Illness HPI narrative: Patient is a 39-year-old female with a PMH of depression/anxiety that presents to the emergency department with complaints of increased anxiety/panic attack ea rlier today at work. 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 She denies chest pain or shortness of breath. She states this episode lasted for about 45 minutes to an hour. She ended up going home and taking 0.25 mg of her Xanax, which she takes for going to work/outside as needed. She notes yesterday her [facility] provider increased her risperidone from 2 mg to 4 mg. She has taken 2 doses of this thus far and thinks her panic attack is related to this. She tried to call her female health provider but they had already left the office for the day. She wants to quit taking her risperidone but notes she will probably get migraines. She states she will be unable to go to work this weekend and would like a note. Related Data Home Medications ?Medication ?Instructions ?Recorded ?Confirmed alprazolam 0.25 mg tablet 0.25 mg PO .q12 PRN anxiety 12/15/24 12/15/24 cetirizine 10 mg tablet 10 mg PO QDAY PRN allergy sy mptoms 12/15/24 12/15/24 risperidone 2 mg tablet 2 mg PO BID 12/15/24 5 Previous Rx's ?Medication ?Instructions ?Recorded ondansetron 4 mg disintegrating 4 mg PO Q6H PRN nausea and 05/09/24 tablet vomiting #12 tabs Allergies Allergy/AdvReac Type Severity Reaction Status Date / Time lamotrigine (From Lamictal) Allergy Unknown Rash Verified 12/15/24 15:38 Pork/Porcine Containing Allergy Vomiting Verified 12/15/24 15:38 Products Opioid HPI Opioid Management Most Recent Opioid Data: Last Pain Scale 7 05/09/24, 14:47 Review of Systems ROS Status of ROS 10 or more systems reviewed and unremark able except as noted in history and below [facility] Medical History (Updated 12/15/24 @ 16:27 by JACQUE Ashby) Depression ?F32.A - Depression, unspecified (ICD-10) Anxiety ?F41.9 - Anxiety disorder, unspecified (ICD-10) Asthma ?J45.909 - Unspecified asthma, uncomplicated (ICD-10) Migraine ?G43.909 - Migraine, unspecified, not intractable, without status migrainosus (ICD-10) Postoperative nausea and vomiting ?R11.2 - Nausea with vomiting, unspecified (ICD-10) ?Z98.890 - Other specified postprocedural states (ICD-10) Acid reflux ?K21.9 - Gastro-esophageal reflux disease without esophagitis (ICD-10) History of kidney stones ?Z87.442 - Personal history of urinary calculi (ICD-10) Surgical History (Updated 03/30/24 @ 09:47 by Radha Kelly) S/P ureteral stent placement ?Z96.0 - Presence of urogenital implants (ICD-10) History of nasal septoplasty ?Z98.890 - Other specified postprocedural states (ICD-10) History of colonoscopy ?Z98.890 - Other specified postprocedural states (ICD-10) History of tonsillectomy ?Z90.89 - Acquired absence of other organs (ICD-10) H/O ureteroscopy ?Z98.890 - Other specified postprocedural states (ICD-10) History of appendectomy ?Z90.49 - Acquired absence of other specified parts of digestive tract (ICD- 10) History of tonsillectomy and adenoidectomy ?Z90.89 - Acquired absence of other organs (ICD-10) Hx of LASIK ?Z98.890 - Other specified postprocedural states (ICD-10) History of laparoscopic cholecystectomy ?Z90.49 - Acquired absence of other specified parts of digestive tract (ICD- 10) Family History (Updated 03/27/24 @ 12:58 by Tonya Champion NP) Other Family history of cancer Family history of hypertension Social History Within the past year, how often did you have a drink containing alcohol: never Score interpretation: A score less than 3 is consistent with normal alcohol consumption. Smoking status: Never smoker Non-prescribed substance use: denies use Previous occupational history: [employer] Highest level of school completed/degree received: high school graduate Little interest or pleasure in doing things: nearly every day Feeling down, depressed, or hopeless: nearly every day Exam Narrative Exam Narrative: General: Mild distress hands mildly shaking, age-appropriate Skin: Warm, dry, no pallor. No rash. Head: Normocephalic, atraumatic. Neck: Supple, non-tender. Eye: Pupils are equal, round and EOMI. No scleral icterus. Ears, Nose, Mouth, and Throat: No nasal mucosal hypertrophy. Oral mucosa is moist, no posterior oropharynx erythema, uvula is mid-line Cardiovascular: Regular Rate and Rhythm without murmur, gallop or rub. Respiratory: No accessory muscle use or respiratory distress. Lungs are clear to auscultation, no wheezing, rales or rhonchi Chest Wall: no tenderness Back: No midline thoracic or lumbar vertebral tenderness. Musculoskeletal: Full ROM of all extremities, no calf or popliteal tenderness GI: Abdomen is soft, non-distended, non tender to palpation. No masses appreciated. No rebound, guarding, or rigidity noted. Neurological: A&O x4. No cranial nerve dysfunction observed. No truncal ataxia. Moves all extremities. Sensation intact. Psychiatric: Cooperative and interactive. Normal mood and affect. Constitutional Vital Signs, click to edit/add: Last Vital Signs Temp 97.7 F 12/15/24 15:25 Pulse 98 H 12/15/24 15:25 Resp 16 12/15/24 15:25 BP 137/96 H 12/15/24 15:25 Pulse Ox 99 12/15/24 15:31 O2 Del Method Room Air 12/15/24 15:31 Course Vital Signs Vital signs: Vital Signs Temperature 97.7 F 12/15/24 15:25 Pulse Rate 98 H 12/15/24 15:25 Respiratory Rate 16 12/15/24 15:25 Blood Pressure 137/96 H 12/15/24 15:25 Pulse Oximetry 98 12/15/24 15:25 Oxygen Delivery Method Room Air 12/15/24 15:25 Temperature 97.7 F 12/15/24 15:25 Pulse Rate 98 H 12/15/24 15:25 Respiratory Rate 16 12/15/24 15:25 Blood Pressure 137/96 H 12/15/24 15:25 Pulse Oximetry 99 12/15/24 15:31 Oxygen Delivery Method Room Air 12/15/24 15:31 Medical Decision Making MDM Narrative Medical decision making narrative: This is a 39-year-old female that presented to the ED with complaints of panic attack earlier today at work. 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 She denies any chest pain or shortness of breath. She just increased her risper idone from 2 mg to 4 mg yesterday, has taken 2 doses of this. She went home from work and took 0.25 mg of Xanax. She tried to call her behavioral health provider and they had left the office for the weekend already. She wants to stop taking her risperidone. In the past when she has changed doses she has gotten migraines. On exam patient seems mildly distress, hand shaking a bit, vitals are he modynamically stable. She denies SOB or chest pain. Lungs are clear to auscultation bilaterally. Afebrile. 99% O2 sat on room air. She states she is starting to feel anxious again. 5 mg of Valium given IM. On repeat exam patient states she is feeling much better after the Valium dose. I advised patient to not stop her medication completely, at least take the 2 mg to avoid side effects. I did give her a work note for today, Wednesday, and Wednesday. She will follow-up closely with her behavioral health provider and call them first thing Wednesday. She will return to the ED with any new or worsening symptoms. Differential Diagnosis Differential Diagnosis: Panic attack, medication side effect Discharge Plan Discharge Chief Complaint: Anxiety Clinical Impression: Acute anxiety, Drug side effects Patient Disposition: Home, Self-Care Time of Disposition Decision: 16:27 Condition: Good Mode of Transportation: Private Vehicle Prescriptions / Home Meds: No Action ondansetron 4 mg tablet,disintegrating 4 mg PO Q6H PRN (Reason: nausea and vomiting) Qty: 12 0RF risperidone 2 mg tablet 2 mg PO BID cetirizine 10 mg tablet 10 mg PO QDAY PRN (Reason: allergy symptoms) alprazolam 0.25 mg tablet 0.25 mg PO .q12 PRN (Reason: anxiety) Print Language: Swiss Instructions: Anxiety (ED) Referrals: Ilana Carmona, MANAGER STUDENT SERVICES [Primary Care Provider] - 1 week Discharge Date/Time: 12/15/24 16:35
[2024-12-15] MEDS: DIAZEPAM 10 MG/2 ML SYRINGE 5 MG IM (16:06)
== END 2024-12-15 16:35 | disposition home or self-care (01) ==
PROVIDERS: Emergency Provider Emergency Medicine; PCP Nurse Practitioner
DX: F41.9 Anxiety disorder, unspecified (principal); F32.A Depression, unspecified; Z79.899 Other long term (current) drug therapy; T50.995A Adverse effect of other drugs, medicaments and biological substances, initial encounter
CPT/HCPCS: 96372; 99284; J3360